=== PATIENT | male | born 1965 | race American Indian/Alaskan Native ===

== ENCOUNTER 2017-06-05 19:04 | Emergency (ER) | payer SELFPAY ==
--- NOTE | 2017-06-05 21:22 | XRay Report ---
FINAL REPORT PROCEDURE: XR ELBOW 2V RT TECHNIQUE: RIGHT elbow radiographs, including AP, lateral, and oblique views. CPT 70345 HISTORY: RIGHT ELBOW PAIN COMPARISON: No prior studies are available for comparison. FINDINGS: This study is limited due to suboptimal positioning. Fracture (s) and/or Dislocation(s): No obvious fracture line is identified. Alignment: Normal . Joint space(s): Positive anterior and posterior fat pad signs are noted. Soft tissues: Normal . Bone mineralization: Normal . Foreign bodies: None . IMPRESSION: This study is limited due to suboptimal positioning. Positive fat pad signs are suggestive of hemarthrosis. An occult supracondylar fracture is suspected.
--- NOTE | 2017-06-05 22:38 | Emergency Department Report ---
Upper Extremity - HPI Chief Complaint: Extremity Injury, Upper Stated Complaint: RT ARM PAIN Time Seen by Provider: 06/05/17 21:54 Upper Extremity: Right Elbow Occurred When: Today Severity: moderate Symptoms: Yes Pain with Movement, Yes Limited Range of Movement, Yes Swelling, No Deformity, No Numbness, No Bruising/Ecchymosis, No Laceration or Abrasion Other History: Patient comes into the ER today with complaints of right elbow pain that started earlier today. 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 Patient also states that he believes he hit his elbow today when working. Patient states that he was unable to keep using his arm but continued to work with left arm unloading bread. Patient denies any chest pain, shortness of breath. Patient states the pain is worse with movement. Patient has not taken anything for the pain or discomfort and he denies any known health problems. ED Review of Systems ROS: Stated complaint: RT ARM PAIN Other details as noted in HPI Constitutional: denies: chills, fever Eyes: denies: eye pain, eye discharge, vision change ENT: denies: ear pain, throat pain Respiratory: denies: cough, shortness of breath, wheezing Cardiovascular: denies: chest pain, palpitations Endocrine: no symptoms reported Gastrointestinal: denies: abdominal pain, nausea, diarrhea Genitourinary: denies: urgency, dysuria Musculoskeletal: joint swelling, arthralgia. denies: back pain Skin: denies: rash, lesions Neurological: denies: headache, weakness, paresthesias Psychiatric: denies: anxiety, depression Hematological/Lymphatic: denies: easy bleeding, easy bruising ED Past Medical Hx - Past Medical History Previous Medical History?: Yes Hx Hypertension: Yes - Surgical History Past Surgical History?: No - Social History Smoking Status: Former Smoker Substance Use Type: Alcohol - Medications Home Medications: Home Medications Medication Instructions Recorded Confirmed Last Taken Type Ciprofloxacin HCl [Cipro] 500 mg PO Q12H #14 tab 11/26/13 Unknown Rx HYDROcodone/APAP 5-325 [Brave 1 each PO Q6HR PRN #16 tablet 11/26/13 Unknown Rx 5-325 mg TAB] Naproxen [Naprosyn] 500 mg PO BID #30 tablet 12/04/13 Unknown Rx traMADol [Ultram 50 MG tab] 50 mg PO Q6HR PRN #20 tablet 12/04/13 Unknown Rx Cephalexin [Keflex] 500 mg PO TID #30 capsule 06/05/17 Unknown Rx predniSONE [Deltasone] 40 mg PO QDAY 5 Days 06/05/17 Unknown Rx traMADol [Ultram 50 MG tab] 50 mg PO Q4HR PRN #30 tablet 06/05/17 Unknown Rx Upper Extremity Exam - Exam General: Vital signs noted. No distress. Alert and acting appropriately. Bilateral nasal mucosa redness and congestion noted with right greater than left. Mild posterior nasal drainage noted in pharynx. Breath sounds are clear to auscultation throughout. Heart rate is normal sinus and heart sounds are normal. Patient does have left anterior chest wall erythematous and swelling noted consistent with insect bite reaction. No lymphadenopathy noted. Patient also has incidental umbilical hernia noted. Head and Torso: No HEENT Abnormality, No Neck Tenderness, No Chest/Lungs Abnormality, No Abdominal Tenderness, No Back Tenderness Shoulder Exam: Yes Normal Range of Motion in Shoulder, No Shoulder Tenderness, No Clavicle Tenderness, No Shoulder Deformity, No AC Joint Tenderness Arm Exam: No Arm/Humerus Tenderness, No Arm Deformity Elbow: Yes Elbow Tenderness (right elbow), No Normal Range of Motion in Elbow, No Elbow Deformity Forearm: Yes Pain with Pronation, Yes Pain with Supination, No Forearm Tenderness, No Forearm Deformity Wrist: Yes Normal ROM in Wrist, No Wrist Tenderness, No Wrist Deformity, No Snuffbox Tenderness, No Pain with Axial Thumb Compression Hand: Yes Normal ROM in Digit(s), No Hand Tenderness, No Hand Deformity, No Digit Tenderness, No Digit(s) Deformity, No Tendon Dysfunction CMS Exam: Yes Normal Distal Pulses, Yes Normal Capillary Refill, Yes Normal Distal Sensation, No Broken Skin ED Course Vital Signs 06/05/17 19:59 Temperature 100.0 F H Pulse Rate 98 H Respiratory 18 Rate Blood Pressure 172/100 O2 Sat by Pulse 98 Oximetry ED Medical Decision Making - Radiology Data Radiology results: report reviewed Positive anterior and posterior fat pad signs are noted with an occult supracondylar fracture suspected. However radiologist states that there is no obvious fracture line identified. Study is limited due to suboptimal positioning. - Medical Decision Making Patient is nontoxic and hemodynamically stable. Upon reviewing vitals patient noted to have a low-grade fever. Patient does not feel like he's been running any fevers but he does state he has been having some occasional frontal headaches over the past few days as well as has had an insect bite to the left lateral anterior chest wall. Patient is unsure as to what bit him but he does state that he has been becoming red and itching a lot. X-ray results reviewed and discussed with patient and family in room. I informed patient that no obvious fracture line is identified but 2 to have an anterior and posterior fat pad signs noted that we will treat patient for suspected fracture. Patient placed in right sugar tong arm splint and sling here in the ER. Patient is neurovascularly intact distally after splint placement. I will refer patient to orthopedics for further evaluation and anticipated casting. I have instructed patient to return to the ER if symptoms worsen. Hopefully patient's fever is related to potentially to insect bite versus underlying sinus infection. I will start patient on some antibiotics accordingly. Patient is in agreement with treatment plan and patient is stable for discharge. Critical care attestation.: If time is entered above; I have spent that time in minutes in the direct care of this critically ill patient, excluding procedure time. ED Disposition Clinical Impression: Right elbow pain, Elbow fracture, right, Insect bite, Sinusitis Disposition: [id number] TO HOME OR SELFCARE Is pt being admited?: No Does the pt Need Aspirin: No Condition: Good Instructions: Elbow Fracture in Adults (ED), Insect Bite or Sting (ED), Sinusitis (ED) Prescriptions: Cephalexin [Keflex] 500 mg PO TID #30 capsule predniSONE [Deltasone] 40 mg PO QDAY 5 Days traMADol [Ultram 50 MG tab] 50 mg PO Q4HR PRN #30 tablet PRN Reason: Pain Referrals: PRIMARY CARE, [Primary Care Provider] - 3-5 Days ANNAMARIA CUMMINGS MD [Staff Physician] - 2-3 Days Time of Disposition: 23:00
[2017-06-05] MEDS ORDERED: CATAPRES PO ONE (23:20)
[2017-06-05 23:49] VITALS: BP 178/98
== END 2017-06-05 23:49 | disposition home or self-care (01) ==
LOC: ED 19:04
DX: S42.401A Unspecified fracture of lower end of right humerus, initial encounter for closed fracture (principal); S20.362A Insect bite (nonvenomous) of left front wall of thorax, initial encounter; J32.8 Other chronic sinusitis; I10 Essential (primary) hypertension; F17.200 Nicotine dependence, unspecified, uncomplicated; X50.1XXA Overexertion from prolonged static or awkward postures, initial encounter; Y93.89 Activity, other specified; Y99.8 Other external cause status; Y92.89 Other specified places as the place of occurrence of the external cause

== ENCOUNTER 2018-03-26 11:51 | Emergency (ER) | payer SELFPAY ==
[2018-03-26 14:01] LABS: Basophils % (Auto) 0.6 % (0.0-1.8); Eosinophils % (Auto) 0.1 % (0.0-4.3); Hematocrit 49.5 % (35.5-45.6); Hemoglobin 16.1 gm/dl (11.8-15.2); Lymphocytes % (Auto) 23.1 % (13.4-35.0); Mean Corpuscular HGB Conc 33 % (32-34); Mean Corpuscular Hemoglobin 29 pg (28-32); Mean Corpuscular Volume 88 fl (84-94); Monocytes % (Auto) 5.4 % (0.0-7.3); Platelet Count 230 K/mm3 (140-440); Red Blood Count 5.62 M/mm3 (3.65-5.03); Red Cell Distribution Width 16.1 % (13.2-15.2)
[2018-03-26 14:02] LABS: Lymphocytes # (Auto) 1.6 K/mm3 (1.2-5.4); Monocytes # (Auto) 0.4 K/mm3 (0.0-0.8)
--- NOTE | 2018-03-26 14:12 | XRay Report ---
Single view chest: History: Hypertension. Findings: Normal cardiomediastinal silhouette. Trachea is midline. No consolidation, pneumothorax or pleural effusion. Impression: No acute cardiopulmonary findings.
[2018-03-26 14:13] LABS: INR 1.02 (0.87-1.13)
[2018-03-26 14:14] LABS: Partial Thromboplastin Time 25.3 Sec. (24.2-36.6)
[2018-03-26 14:24] LABS: Alanine Aminotransferase 30 units/L (7-56); BUN/Creatinine Ratio 11; Blood Urea Nitrogen 8 mg/dL (9-20); Calcium 8.8 mg/dL (8.4-10.2); Hemolysis Index 23
--- NOTE | 2018-03-26 14:37 | Cat Scan Report ---
CT scan of head without IV contrast: History oral or mental status. Findings: Ventricles are normal in size and midline in location. No evidence of acute ischemia, hemorrhage or mass. No extra axial fluid collection. Normal brainstem and cerebellum. Normal sinuses and mastoid air cells. Impression: No acute intracranial abnormality.
[2018-03-26] MEDS ORDERED: NACL 0.9% 1000 ML 2,000 ML IV ONE (15:24)
[2018-03-26] MEDS ORDERED: CATAPRES PO ONE (15:25)
[2018-03-26] MEDS ORDERED: ZOFRAN IV ONE (18:41)
--- NOTE | 2018-03-26 18:57 | Emergency Department Report ---
<GLORIA CASTREJON P - Last Filed: 03/26/18 20:27> ED Altered Mental Status HPI - General Chief Complaint: Syncope Stated Complaint: SYNCOPE/LOW BLOOD PRESSURE Time Seen by Provider: 03/26/18 12:03 Source: patient Mode of arrival: Ambulatory Limitations: No Limitations - History of Present Illness Initial Comments: Patient found to be altered by family at home. EMS reported agonal breathing on arrival. Patient improved in condition to the ER. Reported no resp distress on arrival at the ER. Patient with history of alcohol abuse. Sister reports patient suspected binge drinking contributing the symptoms today MD Complaint: altered mental status -: hour(s) Severity: moderate Consistency of Symptoms: waxing and waning (symptoms improving en route to the ER) Context: alcohol abuse Associated Symptoms: diaphoresis, nausea/vomiting, shortness of breath, syncope. denies: chest pain, cough, fever/chills, headaches, loss of appetite, malaise, rash, seizure, weakness, foul smelling urine, difficulty walking, diarrhea, incontinence - Related Data Previous Rx's Medication Instructions Recorded Last Taken Type Ciprofloxacin HCl [Cipro] 500 mg PO Q12H #14 tab 11/26/13 Unknown Rx HYDROcodone/APAP 5-325 [[place] 1 each PO Q6HR PRN #16 tablet 11/26/13 Unknown Rx 5-325 mg TAB] Naproxen [Naprosyn] 500 mg PO BID #30 tablet 12/04/13 Unknown Rx traMADol [Ultram 50 MG tab] 50 mg PO Q6HR PRN #20 tablet 12/04/13 Unknown Rx Cephalexin [Keflex] 500 mg PO TID #30 capsule 06/05/17 Unknown Rx predniSONE [Deltasone] 40 mg PO QDAY 5 Days tab 06/05/17 Unknown Rx traMADol [Ultram 50 MG tab] 50 mg PO Q4HR PRN #30 tablet 06/05/17 Unknown Rx Azithromycin [Zithromax Z-BRENT] 1 dose PO DAILY 5 Days tab 03/27/18 Unknown Rx Lisinopril [Zestril TAB] 20 mg PO QDAY #30 tablet 03/27/18 Unknown Rx Allergies Allergy/AdvReac Type Severity Reaction Status Date / Time No Known Allergies Allergy Verified 11/25/13 21:18 ED Review of Systems ROS: Stated complaint: SYNCOPE/LOW BLOOD PRESSURE Other details as noted in HPI Other: GENERAL: No weight change, fatigue, weakness, fever, chills, or night sweats SKIN: No changes in skin or hair, no itching, no rashes, no jaundice HEAD: No trauma, headache, or visual changes EYES: No blurriness, tearing, itching, acute visual loss, conjunctival discoloration, or scleral icterus EARS: No hearing loss, tinnitus, vertigo, or earache NOSE: No rhinorrhea, stuffiness, sneezing, itching, or epistaxis MOUTH: No bleeding gums, hoarseness, sore throat, or swelling CARDIAC: Reported syncope. No new murmur, chest pain, palpitations, dyspnea on exertion, orthopnea, PND, or edema RESPIRATORY: No shortness of breath, wheeze, cough, sputum production, hemoptysis, pneumonia, asthma, bronchitis, or emphysema GI: No change in appetite, nausea, vomiting, dysphagia, change in bowel frequency, diarrhea, constipation, bleeding, hematemesis, melena, hematochezia, or abdominal pain URINARY: No frequency, urgency, polyuria, dysuria, hematuria, or incontinence MUSCULOSKELETAL: No muscle weakness, joint stiffness, decrease in range of motion, redness, swelling NEUROLOGIC: No loss of sensation, numbness, tingling, tremors, weakness, paralysis, seizures PSYCHIATRIC: No change in mood, no anxiety, no depression ED Past Medical Hx - Past Medical History Hx Hypertension: Yes - Surgical History Past Surgical History?: No - Social History Smoking Status: Never Smoker Substance Use Type: Alcohol - Medications Home Medications: Home Medications Medication Instructions Recorded Confirmed Last Taken Type Ciprofloxacin HCl [Cipro] 500 mg PO Q12H #14 tab 11/26/13 Unknown Rx HYDROcodone/APAP 5-325 [[place] 1 each PO Q6HR PRN #16 tablet 11/26/13 Unknown Rx 5-325 mg TAB] Naproxen [Naprosyn] 500 mg PO BID #30 tablet 12/04/13 Unknown Rx traMADol [Ultram 50 MG tab] 50 mg PO Q6HR PRN #20 tablet 12/04/13 Unknown Rx Cephalexin [Keflex] 500 mg PO TID #30 capsule 06/05/17 Unknown Rx predniSONE [Deltasone] 40 mg PO QDAY 5 Days tab 06/05/17 Unknown Rx traMADol [Ultram 50 MG tab] 50 mg PO Q4HR PRN #30 tablet 06/05/17 Unknown Rx Azithromycin [Zithromax Z-BRENT] 1 dose PO DAILY 5 Days tab 03/27/18 Unknown Rx Lisinopril [Zestril TAB] 20 mg PO QDAY #30 tablet 03/27/18 Unknown Rx ED Physical Exam - General Limitations: No Limitations - Other Other exam information: GENERAL: Patient in no acute distress HEAD: Normocephalic, atraumatic EYES: PERRLA, EOM intact, no scleral icterus, visual mack and acuity wnl HEART: Regular rate and rhythm, no murmur, S1-S2 are auscultated, pulses are symmetric LUNGS: bilateral breath sounds. No wheezing, rales, rhonchi ABDOMEN: Normal bowel sounds, no tenderness, no rebound, no guarding, no masses , no CVA tenderness MUSCULOSKELETAL: Normal joint range of motion, no redness, no swelling, no tenderness NEUROLOGIC: Alert and Oriented, Cranial nerves intact, normal sensation, normal strength, normal gait, no cerebellar deficit PSYCHIATRIC: No homicidal or suicidal ideation, no anxiety, no depression, no hallucinations SKIN: Skin is warm and dry, no wounds, no rashes - Assessment Assessment Interval: Baseline - Level of Consciousness 1a. Level of Consciousness: alert - LOC Questions 1b. LOC Questions: answers correctly - LOC Command 1c. LOC Commands: performs tasks correctly - Best Gaze 2. Best Gaze: normal - Visual 3. Visual: no visual loss - Facial Palsy 4. Facial Palsy: normal symmetrical movement - Motor Arm 5b. Motor Arm Right: no drift 5a. Motor Arm Left: no drift - Motor Leg 6a. Motor Leg Left: no drift 6b. Motor Leg Right: no drift - Limb Ataxia 7. Limb Ataxia: absent - Sensory 8. Sensory: normal - Best Language 9. Best Language: no aphasia - Dysarthria 10. Dysarthria: normal - Extinction and Inattention 11. Extinction/Inattention: no abnormality - Scoring Total Score: 0 Stroke Severity: No Stroke Symptoms ED Course Vital Signs 03/26/18 03/26/18 03/26/18 12:00 12:51 16:24 Temperature 98 F 98.0 F Pulse Rate 112 H 97 H Respiratory 16 18 Rate Blood Pressure 164/102 Blood Pressure 163/95 [Left] O2 Sat by Pulse 96 99 99 Oximetry 03/26/18 03/26/18 03/26/18 16:30 16:46 17:00 Temperature Pulse Rate Respiratory Rate Blood Pressure 144/78 161/93 145/89 Blood Pressure [Left] O2 Sat by Pulse 95 95 97 Oximetry 03/26/18 03/26/18 03/26/18 17:16 17:30 17:46 Temperature Pulse Rate Respiratory Rate Blood Pressure 147/85 110/69 153/77 Blood Pressure [Left] O2 Sat by Pulse 97 96 98 Oximetry 03/26/18 03/26/18 03/26/18 18:31 18:45 19:00 Temperature Pulse Rate 108 H 121 H Respiratory 27 H 31 H Rate Blood Pressure 165/95 158/108 158/108 Blood Pressure [Left] O2 Sat by Pulse 95 98 98 Oximetry 03/26/18 03/26/18 03/26/18 19:15 19:42 19:44 Temperature Pulse Rate 92 H Respiratory Rate Blood Pressure 153/93 143/90 143/90 Blood Pressure [Left] O2 Sat by Pulse 97 95 96 Oximetry 03/26/18 03/26/18 03/26/18 19:45 19:46 19:48 Temperature Pulse Rate Respiratory Rate Blood Pressure 164/106 164/106 164/106 Blood Pressure [Left] O2 Sat by Pulse 97 98 96 Oximetry 03/26/18 03/26/18 03/26/18 19:50 19:52 19:54 Temperature Pulse Rate Respiratory Rate Blood Pressure 164/106 164/106 164/106 Blood Pressure [Left] O2 Sat by Pulse 96 97 96 Oximetry 03/26/18 03/26/18 03/26/18 19:56 19:58 20:00 Temperature Pulse Rate 133 H Respiratory 32 H Rate Blood Pressure 164/106 164/106 164/106 Blood Pressure [Left] O2 Sat by Pulse 97 96 96 Oximetry 03/26/18 03/26/18 03/26/18 20:02 20:04 20:06 Temperature Pulse Rate Respiratory Rate Blood Pressure 176/107 176/107 176/107 Blood Pressure [Left] O2 Sat by Pulse 96 97 96 Oximetry 03/26/18 03/26/18 03/26/18 20:08 20:10 20:12 Temperature Pulse Rate Respiratory Rate Blood Pressure 176/107 176/107 176/107 Blood Pressure [Left] O2 Sat by Pulse 97 96 96 Oximetry 03/26/18 03/26/18 03/26/18 20:14 20:15 20:16 Temperature Pulse Rate Respiratory Rate Blood Pressure 176/107 158/102 158/102 Blood Pressure [Left] O2 Sat by Pulse 96 98 97 Oximetry 03/26/18 03/26/18 03/26/18 20:18 20:20 20:22 Temperature Pulse Rate Respiratory Rate Blood Pressure 158/102 158/102 158/102 Blood Pressure [Left] O2 Sat by Pulse 99 99 98 Oximetry 03/26/18 03/26/18 03/26/18 20:23 20:25 20:27 Temperature Pulse Rate 107 H 80 89 Respiratory 18 22 24 Rate Blood Pressure 153/93 153/93 153/93 Blood Pressure [Left] O2 Sat by Pulse 97 96 96 Oximetry 03/26/18 03/26/18 03/26/18 20:29 20:30 20:31 Temperature Pulse Rate 83 86 93 H Respiratory 25 H 25 H 25 H Rate Blood Pressure 153/93 145/94 145/94 Blood Pressure [Left] O2 Sat by Pulse 96 96 97 Oximetry 03/26/18 03/26/18 03/26/18 20:33 20:35 20:37 Temperature Pulse Rate 93 H 90 89 Respiratory 24 24 22 Rate Blood Pressure 158/102 158/102 158/102 Blood Pressure [Left] O2 Sat by Pulse 98 97 97 Oximetry 03/26/18 03/26/18 03/26/18 20:39 20:41 20:43 Temperature Pulse Rate 89 91 H 95 H Respiratory 24 24 25 H Rate Blood Pressure 158/102 158/102 158/102 Blood Pressure [Left] O2 Sat by Pulse 97 98 97 Oximetry 03/26/18 03/26/18 03/26/18 20:45 20:47 20:49 Temperature Pulse Rate 94 H 96 H 98 H Respiratory 23 24 27 H Rate Blood Pressure 165/89 165/89 165/89 Blood Pressure [Left] O2 Sat by Pulse 96 97 97 Oximetry 03/26/18 03/26/18 03/26/18 20:51 20:53 20:55 Temperature Pulse Rate 94 H 94 H 94 H Respiratory 25 H 24 24 Rate Blood Pressure 165/89 165/89 165/89 Blood Pressure [Left] O2 Sat by Pulse 96 96 96 Oximetry 03/26/18 03/26/18 03/26/18 20:57 20:59 21:00 Temperature Pulse Rate 96 H 105 H 96 H Respiratory 26 H 24 26 H Rate Blood Pressure 165/89 165/89 165/92 Blood Pressure [Left] O2 Sat by Pulse 96 95 97 Oximetry 03/26/18 03/26/18 03/26/18 21:01 21:03 21:05 Temperature Pulse Rate 95 H 96 H 92 H Respiratory 26 H 24 23 Rate Blood Pressure 165/92 165/92 165/92 Blood Pressure [Left] O2 Sat by Pulse 95 95 94 Oximetry 03/26/18 03/26/18 03/26/18 21:07 21:09 23:41 Temperature Pulse Rate 99 H 101 H Respiratory 26 H 24 Rate Blood Pressure 165/92 165/92 165/92 Blood Pressure [Left] O2 Sat by Pulse 95 96 99 Oximetry 03/26/18 03/26/18 03/26/18 23:43 23:45 23:47 Temperature Pulse Rate 101 H 99 H 104 H Respiratory 32 H 27 H 29 H Rate Blood Pressure 172/93 172/93 172/93 Blood Pressure [Left] O2 Sat by Pulse 97 95 97 Oximetry 03/26/18 03/26/18 03/26/18 23:49 23:51 23:53 Temperature Pulse Rate 146 H 106 H 103 H Respiratory 26 H 21 19 Rate Blood Pressure 172/93 172/93 172/93 Blood Pressure [Left] O2 Sat by Pulse 94 96 96 Oximetry 03/26/18 03/26/18 03/26/18 23:55 23:57 23:59 Temperature Pulse Rate 105 H 106 H 104 H Respiratory 29 H 27 H 28 H Rate Blood Pressure 172/93 172/93 172/93 Blood Pressure [Left] O2 Sat by Pulse 96 96 95 Oximetry 03/27/18 03/27/18 03/27/18 00:00 00:01 00:03 Temperature Pulse Rate 103 H 105 H 105 H Respiratory 26 H 28 H 31 H Rate Blood Pressure 158/99 158/99 158/99 Blood Pressure [Left] O2 Sat by Pulse 95 95 97 Oximetry 03/27/18 03/27/18 03/27/18 00:05 00:07 00:09 Temperature Pulse Rate 102 H 98 H 111 H Respiratory 27 H 25 H 25 H Rate Blood Pressure 158/99 158/99 158/99 Blood Pressure [Left] O2 Sat by Pulse 97 96 95 Oximetry 03/27/18 03/27/1803/27/18 00:11 00:13 00:21 Temperature Pulse Rate 107 H 107 H 102 H Respiratory 20 24 20 Rate Blood Pressure 158/99 158/99 Blood Pressure 158/99 [Left] O2 Sat by Pulse 98 97 100 Oximetry 03/27/18 03/27/18 03/27/18 00:55 00:57 00:59 Temperature Pulse Rate 100 H 100 H 99 H Respiratory 22 20 21 Rate Blood Pressure 170/98 170/98 170/98 Blood Pressure [Left] O2 Sat by Pulse 95 94 94 Oximetry 03/27/18 03/27/18 03/27/18 01:00 01:01 01:03 Temperature Pulse Rate 100 H 99 H 101 H Respiratory 27 H 23 27 H Rate Blood Pressure 163/92 163/92 163/92 Blood Pressure [Left] O2 Sat by Pulse 96 96 96 Oximetry 03/27/18 03/27/18 03/27/18 01:05 01:07 01:09 Temperature Pulse Rate 101 H 105 H 101 H Respiratory 27 H 29 H 26 H Rate Blood Pressure 163/92 163/92 163/92 Blood Pressure [Left] O2 Sat by Pulse 95 97 95 Oximetry 03/27/18 03/27/18 03/27/18 01:11 01:13 01:15 Temperature Pulse Rate 102 H 97 H 97 H Respiratory 25 H 26 H 26 H Rate Blood Pressure 163/92 163/92 163/92 Blood Pressure [Left] O2 Sat by Pulse 94 95 95 Oximetry 03/27/18 03/27/18 03/27/18 01:17 01:19 01:20 Temperature Pulse Rate 96 H 100 H 96 H Respiratory 26 H 27 H 27 H Rate Blood Pressure 163/92 163/92 168/89 Blood Pressure [Left] O2 Sat by Pulse 96 96 96 Oximetry 03/27/18 03/27/18 03/27/18 01:21 01:23 01:25 Temperature Pulse Rate 96 H 97 H 95 H Respiratory 26 H 26 H 26 H Rate Blood Pressure 168/89 168/89 168/89 Blood Pressure [Left] O2 Sat by Pulse 95 95 94 Oximetry 03/27/18 03/27/18 03/27/18 01:27 01:29 01:31 Temperature Pulse Rate 96 H 94 H 93 H Respiratory 25 H 26 H 22 Rate Blood Pressure 168/89 168/89 168/89 Blood Pressure [Left] O2 Sat by Pulse 98 96 97 Oximetry 03/27/18 03/27/18 03/27/18 01:33 01:35 01:37 Temperature Pulse Rate 91 H 96 H 101 H Respiratory 25 H 26 H 24 Rate Blood Pressure 168/89 168/89 168/89 Blood Pressure [Left] O2 Sat by Pulse 95 95 95 Oximetry 03/27/18 03/27/18 03/27/18 01:39 01:40 01:41 Temperature Pulse Rate 99 H 95 H 95 H Respiratory 26 H 25 H 26 H Rate Blood Pressure 168/89 168/90 168/90 Blood Pressure [Left] O2 Sat by Pulse 95 95 95 Oximetry 03/27/18 03/27/18 03/27/18 01:43 01:45 01:47 Temperature Pulse Rate 93 H 108 H 98 H Respiratory 25 H 30 H 27 H Rate Blood Pressure 168/90 168/90 168/90 Blood Pressure [Left] O2 Sat by Pulse 94 97 96 Oximetry 03/27/18 03/27/18 03/27/18 01:49 01:51 01:53 Temperature Pulse Rate 98 H 96 H 99 H Respiratory 27 H 22 25 H Rate Blood Pressure 168/90 168/90 168/90 Blood Pressure [Left] O2 Sat by Pulse 95 95 94 Oximetry 03/27/18 03/27/18 03/27/18 01:55 01:57 01:59 Temperature Pulse Rate 95 H 96 H 98 H Respiratory 22 26 H 26 H Rate Blood Pressure 168/90 168/90 168/90 Blood Pressure [Left] O2 Sat by Pulse 95 97 97 Oximetry 03/27/18 03/27/18 03/27/18 02:00 02:01 02:03 Temperature Pulse Rate 97 H 99 H 99 H Respiratory 27 H 26 H 24 Rate Blood Pressure 167/91 167/91 167/91 Blood Pressure [Left] O2 Sat by Pulse 96 96 96 Oximetry 03/27/18 03/27/18 03/27/18 02:05 02:07 02:09 Temperature Pulse Rate 97 H 101 H 103 H Respiratory 22 26 H 27 H Rate Blood Pressure 167/91 167/91 167/91 Blood Pressure [Left] O2 Sat by Pulse 96 96 96 Oximetry 03/27/18 03/27/18 03/27/18 02:11 02:13 02:15 Temperature Pulse Rate 99 H 99 H 100 H Respiratory 26 H 26 H 25 H Rate Blood Pressure 167/91 167/91 167/91 Blood Pressure [Left] O2 Sat by Pulse 96 96 97 Oximetry 03/27/18 03/27/18 03/27/18 02:17 02:19 02:21 Temperature Pulse Rate 105 H 129 H 132 H Respiratory 27 H 35 H 26 H Rate Blood Pressure 167/91 167/91 193/115 Blood Pressure [Left] O2 Sat by Pulse 96 92 96 Oximetry 03/27/18 03/27/18 03/27/18 02:23 02:25 02:43 Temperature Pulse Rate 113 H 110 H 101 H Respiratory 21 25 H 24 Rate Blood Pressure 193/115 193/115 170/94 Blood Pressure [Left] O2 Sat by Pulse 97 96 96 Oximetry 03/27/18 03/27/18 03/27/18 02:45 02:47 02:49 Temperature Pulse Rate 101 H 99 H 101 H Respiratory 27 H 26 H 20 Rate Blood Pressure 175/93 175/93 175/93 Blood Pressure 170/94 [Left] O2 Sat by Pulse 97 96 97 Oximetry 03/27/18 03/27/18 03/27/18 02:51 02:53 02:55 Temperature Pulse Rate 101 H 99 H 102 H Respiratory 20 27 H 28 H Rate Blood Pressure 175/93 175/93 175/93 Blood Pressure [Left] O2 Sat by Pulse 97 96 96 Oximetry 03/27/18 03/27/18 03/27/18 02:57 02:59 03:00 Temperature Pulse Rate 101 H 102 H 101 H Respiratory 28 H 28 H 26 H Rate Blood Pressure 175/93 175/93 173/99 Blood Pressure [Left] O2 Sat by Pulse 96 96 96 Oximetry 03/27/18 03/27/18 03/27/18 03:01 03:03 03:05 Temperature Pulse Rate 100 H 101 H 102 H Respiratory 16 26 H 27 H Rate Blood Pressure 173/99 173/99 173/99 Blood Pressure [Left] O2 Sat by Pulse 97 94 95 Oximetry 03/27/18 03/27/18 03/27/18 03:07 03:09 03:11 Temperature Pulse Rate 103 H 104 H 103 H Respiratory 28 H 26 H 26 H Rate Blood Pressure 173/99 173/99 173/99 Blood Pressure [Left] O2 Sat by Pulse 95 97 96 Oximetry 03/27/18 03/27/18 03/27/18 03:13 03:15 03:17 Temperature Pulse Rate 101 H 102 H 103 H Respiratory 26 H 25 H 26 H Rate Blood Pressure 173/99 172/95 172/95 Blood Pressure [Left] O2 Sat by Pulse 96 96 96 Oximetry 03/27/18 03/27/18 03/27/18 03:19 03:21 03:23 Temperature Pulse Rate 100 H 101 H 103 H Respiratory 27 H 24 28 H Rate Blood Pressure 172/95 172/95 172/95 Blood Pressure [Left] O2 Sat by Pulse 96 97 96 Oximetry 03/27/18 03/27/18 03/27/18 03:25 03:27 03:29 Temperature Pulse Rate 102 H 100 H 104 H Respiratory 28 H 26 H 26 H Rate Blood Pressure 172/95 172/95 172/95 Blood Pressure [Left] O2 Sat by Pulse 96 96 95 Oximetry 03/27/18 03/27/18 03/27/18 03:30 03:31 03:33 Temperature Pulse Rate 101 H 103 H 108 H Respiratory 26 H 26 H 27 H Rate Blood Pressure 170/95 170/95 170/95 Blood Pressure [Left] O2 Sat by Pulse 96 95 95 Oximetry 03/27/18 03/27/18 03/27/18 03:35 03:37 03:39 Temperature Pulse Rate 105 H 103 H 128 H Respiratory 26 H 26 H 36 H Rate Blood Pressure 170/95 170/95 170/95 Blood Pressure [Left] O2 Sat by Pulse 96 96 96 Oximetry 03/27/18 03/27/18 03/27/18 03:41 03:43 03:45 Temperature Pulse Rate 104 H 107 H 112 H Respiratory 23 17 31 H Rate Blood Pressure 170/95 170/95 177/104 Blood Pressure [Left] O2 Sat by Pulse 97 96 97 Oximetry 03/27/18 03/27/18 03/27/18 03:47 03:49 03:51 Temperature Pulse Rate 102 H 102 H 101 H Respiratory 28 H 26 H 29 H Rate Blood Pressure 177/104 177/104 177/104 Blood Pressure [Left] O2 Sat by Pulse 96 96 96 Oximetry 03/27/18 03/27/18 03/27/18 03:53 03:55 03:57 Temperature Pulse Rate 100 H 103 H 99 H Respiratory 28 H 27 H 20 Rate Blood Pressure 177/104 177/104 177/104 Blood Pressure [Left] O2 Sat by Pulse 94 95 95 Oximetry 03/27/18 03/27/18 03/27/18 03:59 04:00 04:01 Temperature Pulse Rate 102 H 101 H 103 H Respiratory 27 H 26 H 26 H Rate Blood Pressure 177/104 168/97 168/97 Blood Pressure [Left] O2 Sat by Pulse 95 95 95 Oximetry 03/27/18 03/27/18 03/27/18 04:03 04:05 04:07 Temperature Pulse Rate 102 H 107 H 101 H Respiratory 24 29 H 27 H Rate Blood Pressure 168/97 168/97 168/97 Blood Pressure [Left] O2 Sat by Pulse 95 95 96 Oximetry 03/27/18 03/27/18 03/27/18 04:09 04:11 04:13 Temperature Pulse Rate 102 H 102 H 101 H Respiratory 26 H 27 H 25 H Rate Blood Pressure 168/97 168/97 168/97 Blood Pressure [Left] O2 Sat by Pulse 94 97 97 Oximetry 03/27/18 03/27/18 03/27/18 04:15 04:22 04:46 Temperature Pulse Rate 99 H 104 H Respiratory 26 H 20 20 Rate Blood Pressure 168/96 Blood Pressure 161/89 [Left] O2 Sat by Pulse 96 100 Oximetry 03/27/18 05:33 Temperature Pulse Rate 96 H Respiratory 20 Rate Blood Pressure Blood Pressure 160/92 [Left] O2 Sat by Pulse 98 Oximetry - Lab Data Result diagrams: 03/26/18 13:45 03/26/18 13:45 Lab Results 03/26/18 03/26/18 03/26/18 Range/Units 13:36 13:45 13:45 WBC 7.1 (4.5-11.0) K/mm3 RBC 5.62 H (3.65-5.03) M/mm3 Hgb 16.1 H (11.8-15.2) gm/dl Hct 49.5 H (35.5-45.6) % MCV 88 (84-94) fl MCH 29 (28-32) pg MCHC 33 (32-34) % RDW 16.1 H (13.2-15.2) % Plt Count 230 (140-440) K/mm3 Lymph % (Auto) 23.1 (13.4-35.0) % [place] % (Auto) 5.4 (0.0-7.3) % Eos % (Auto) 0.1 (0.0-4.3) % Baso % (Auto) 0.6 (0.0-1.8) % Lymph # 1.6 (1.2-5.4) K/mm3 [place] # 0.4 (0.0-0.8) K/mm3 Eos # 0.0 (0.0-0.4) K/mm3 Baso # 0.0 (0.0-0.1) K/mm3 Seg Neutrophils % 70.8 H (40.0-70.0) % Seg Neutrophils # 5.0 (1.8-7.7) K/mm3 PT 13.9 (12.2-14.9) Sec. INR 1.02 (0.87-1.13) APTT 25.3 (24.2-36.6) Sec. Sodium (137-145) mmol/L Potassium (3.6-5.0) mmol/L Chloride (98-107) mmol/L Carbon Dioxide (22-30) mmol/L Anion Gap mmol/L BUN (9-20) mg/dL Creatinine (0.8-1.5) mg/dL Estimated GFR ml/min BUN/Creatinine Ratio % Glucose (75-100) mg/dL POC Glucose 115 H (70-105) Calcium (8.4-10.2) mg/dL Total Bilirubin (0.1-1.2) mg/dL AST (5-40) units/L ALT (7-56) units/L Alkaline Phosphatase (35-129) units/L Ammonia (25-60) umol/L Total Creatine Kinase (55-170) units/L Troponin T (0.00-0.029) ng/mL NT-Pro-B Natriuret Pep (0-900) pg/mL Total Protein (6.3-8.2) g/dL Albumin (3.9-5) g/dL Albumin/Globulin Ratio % TSH (0.270-4.200) mlU/mL Free T4 (0.76-1.46) ng/dL Urine Color (Yellow) Urine Turbidity (Clear) Urine pH (5.0-7.0) Ur Specific [place] (1.003-1.030) Urine Protein (Negative) mg/dL Urine Glucose (UA) (Negative) mg/dL Urine Ketones (Negative) mg/dL Urine Blood (Negative) Urine Nitrite (Negative) Urine Bilirubin (Negative) Urine Urobilinogen (<2.0) mg/dL Ur Leukocyte Esterase (Negative) Urine WBC (Auto) (0.0-6.0) /HPF Urine RBC (Auto) (0.0-6.0) /HPF U Epithel Cells (Auto) (0-13.0) /HPF Urine Bacteria (Auto) (Negative) /HPF Urine Mucus /HPF Urine Opiates Screen Urine Methadone Screen Ur Barbiturates Screen Ur Phencyclidine Scrn Ur Amphetamines Screen U Benzodiazepines Scrn Urine Cocaine Screen U Marijuana (THC) Screen Drugs of Abuse Note Plasma/Serum Alcohol (0-0.07) % 03/26/18 03/26/18 03/26/18 Range/Units 13:45 13:45 13:45 WBC (4.5-11.0) K/mm3 RBC (3.65-5.03) M/mm3 Hgb (11.8-15.2) gm/dl Hct (35.5-45.6) % MCV (84-94) fl MCH (28-32) pg MCHC (32-34) % RDW (13.2-15.2) % Plt Count (140-440) K/mm3 Lymph % (Auto) (13.4-35.0) % [place] % (Auto) (0.0-7.3) % Eos % (Auto) (0.0-4.3) % Baso % (Auto) (0.0-1.8) % Lymph # (1.2-5.4) K/mm3 [place] # (0.0-0.8) K/mm3 Eos # (0.0-0.4) K/mm3 Baso # (0.0-0.1) K/mm3 Seg Neutrophils % (40.0-70.0) % Seg Neutrophils # (1.8-7.7) K/mm3 PT (12.2-14.9) Sec. INR (0.87-1.13) APTT (24.2-36.6) Sec. Sodium 143 (137-145) mmol/L Potassium 3.9 (3.6-5.0) mmol/L Chloride 100.7 (98-107) mmol/L Carbon Dioxide 20 L (22-30) mmol/L Anion Gap 26 mmol/L BUN 8 L (9-20) mg/dL Creatinine 0.7 L (0.8-1.5) mg/dL Estimated GFR > 60 ml/min BUN/Creatinine Ratio 11 % Glucose 110 H (75-100) mg/dL POC Glucose (70-105) Calcium 8.8 (8.4-10.2) mg/dL Total Bilirubin 0.60 (0.1-1.2) mg/dL AST 58 H (5-40) units/L ALT 30 (7-56) units/L Alkaline Phosphatase 82 (35-129) units/L Ammonia 39.0 (25-60) umol/L Total Creatine Kinase 869 H (55-170) units/L Troponin T < 0.010 (0.00-0.029) ng/mL NT-Pro-B Natriuret Pep 10.42 (0-900) pg/mL Total Protein 8.3 H (6.3-8.2) g/dL Albumin 4.0 (3.9-5) g/dL Albumin/Globulin Ratio 0.9 % TSH (0.270-4.200) mlU/mL Free T4 (0.76-1.46) ng/dL Urine Color (Yellow) Urine Turbidity (Clear) Urine pH (5.0-7.0) Ur Specific [place] (1.003-1.030) Urine Protein (Negative) mg/dL Urine Glucose (UA) (Negative) mg/dL Urine Ketones (Negative) mg/dL Urine Blood (Negative) Urine Nitrite (Negative) Urine Bilirubin (Negative) Urine Urobilinogen (<2.0) mg/dL Ur Leukocyte Esterase (Negative) Urine WBC (Auto) (0.0-6.0) /HPF Urine RBC (Auto) (0.0-6.0) /HPF U Epithel Cells (Auto) (0-13.0) /HPF Urine Bacteria (Auto) (Negative) /HPF Urine Mucus /HPF Urine Opiates Screen Urine Methadone Screen Ur Barbiturates Screen Ur Phencyclidine Scrn Ur Amphetamines Screen U Benzodiazepines Scrn Urine Cocaine Screen U Marijuana (THC) Screen Drugs of Abuse Note Plasma/Serum Alcohol 0.24 H (0-0.07) % 03/26/18 03/26/18 03/27/18 Range/Units Unknown Unknown 03:05 WBC (4.5-11.0) K/mm3 RBC (3.65-5.03) M/mm3 Hgb (11.8-15.2) gm/dl Hct (35.5-45.6) % MCV (84-94) fl MCH (28-32) pg MCHC (32-34) % RDW (13.2-15.2) % Plt Count (140-440) K/mm3 Lymph % (Auto) (13.4-35.0) % [place] % (Auto) (0.0-7.3) % Eos % (Auto) (0.0-4.3) % Baso % (Auto) (0.0-1.8) % Lymph # (1.2-5.4) K/mm3 [place] # (0.0-0.8) K/mm3 Eos # (0.0-0.4) K/mm3 Baso # (0.0-0.1) K/mm3 Seg Neutrophils % (40.0-70.0) % Seg Neutrophils # (1.8-7.7) K/mm3 PT (12.2-14.9) Sec. INR (0.87-1.13) APTT (24.2-36.6) Sec. Sodium (137-145) mmol/L Potassium (3.6-5.0) mmol/L Chloride (98-107) mmol/L Carbon Dioxide (22-30) mmol/L Anion Gap mmol/L BUN (9-20) mg/dL Creatinine (0.8-1.5) mg/dL Estimated GFR ml/min BUN/Creatinine Ratio % Glucose (75-100) mg/dL POC Glucose (70-105) Calcium (8.4-10.2) mg/dL Total Bilirubin (0.1-1.2) mg/dL AST (5-40) units/L ALT (7-56) units/L Alkaline Phosphatase (35-129) units/L Ammonia (25-60) umol/L Total Creatine Kinase (55-170) units/L Troponin T (0.00-0.029) ng/mL NT-Pro-B Natriuret Pep (0-900) pg/mL Total Protein (6.3-8.2) g/dL Albumin (3.9-5) g/dL Albumin/Globulin Ratio % TSH 2.060 (0.270-4.200) mlU/mL Free T4 0.89 (0.76-1.46) ng/dL Urine Color Yellow (Yellow) Urine Turbidity Clear (Clear) Urine pH 5.0 (5.0-7.0) Ur Specific [place] 1.014 (1.003-1.030) Urine Protein 100 mg/dl (Negative) mg/dL Urine Glucose (UA) Neg (Negative) mg/dL Urine Ketones 20 (Negative) mg/dL Urine Blood Mod (Negative) Urine Nitrite Neg (Negative) Urine Bilirubin Neg (Negative) Urine Urobilinogen < 2.0 (<2.0) mg/dL Ur Leukocyte Esterase Neg (Negative) Urine WBC (Auto) 1.0 (0.0-6.0) /HPF Urine RBC (Auto) 2.0 (0.0-6.0) /HPF U Epithel Cells (Auto) < 1.0 (0-13.0) /HPF Urine Bacteria (Auto) 1+ (Negative) /HPF Urine Mucus Few /HPF Urine Opiates Screen Presumptive negative Urine Methadone Screen Presumptive negative Ur Barbiturates Screen Presumptive negative Ur Phencyclidine Scrn Presumptive negative Ur Amphetamines Screen Presumptive negative U Benzodiazepines Scrn Presumptive negative Urine Cocaine Screen Presumptive negative U Marijuana (THC) Screen Presumptive negative Drugs of Abuse Note Disclamer Plasma/Serum Alcohol (0-0.07) % Laboratory Results - last 24 hr 03/26/18 03/26/18 03/26/18 13:36 13:45 13:45 WBC 7.1 RBC 5.62 H Hgb 16.1 H Hct 49.5 H MCV 88 MCH 29 MCHC 33 RDW 16.1 H Plt Count 230 Lymph % (Auto) 23.1 [place] % (Auto) 5.4 Eos % (Auto) 0.1 Baso % (Auto) 0.6 Lymph # 1.6 [place] # 0.4 Eos # 0.0 Baso # 0.0 Seg Neutrophils % 70.8 H Seg Neutrophils # 5.0 PT 13.9 INR 1.02 APTT 25.3 Sodium Potassium Chloride Carbon Dioxide Anion Gap BUN Creatinine Estimated GFR BUN/Creatinine Ratio Glucose POC Glucose 115 H Calcium Total Bilirubin AST ALT Alkaline Phosphatase Ammonia Total Creatine Kinase Troponin T NT-Pro-B Natriuret Pep Total Protein Albumin Albumin/Globulin Ratio Plasma/Serum Alcohol 03/26/18 03/26/18 03/26/18 13:45 13:45 13:45 WBC RBC Hgb Hct MCV MCH MCHC RDW Plt Count Lymph % (Auto) [place] % (Auto) Eos % (Auto) Baso % (Auto) Lymph # [place] # Eos # Baso # Seg Neutrophils % Seg Neutrophils # PT INR APTT Sodium 143 Potassium 3.9 Chloride 100.7 Carbon Dioxide 20 L Anion Gap 26 BUN 8 L Creatinine 0.7 L Estimated GFR > 60 BUN/Creatinine Ratio 11 Glucose 110 H POC Glucose Calcium 8.8 Total Bilirubin 0.60 AST 58 H ALT 30 Alkaline Phosphatase 82 Ammonia 39.0 Total Creatine Kinase 869 H Troponin T < 0.010 NT-Pro-B Natriuret Pep 10.42 Total Protein 8.3 H Albumin 4.0 Albumin/Globulin Ratio 0.9 Plasma/Serum Alcohol 0.24 H When compared to previous EKG there are: no significant change - Radiology Data Radiology results: report reviewed - Medical Decision Making Patient signed out to Dr. Sin for further evaluation. If CT chest is negative plan discharge with outpatient follow up. Critical care attestation.: If time is entered above; I have spent that time in minutes in the direct care of this critically ill patient, excluding procedure time. ED Disposition Clinical Impression: Alcohol abuse, Pulmonary infiltrate, HTN (hypertension) Disposition: - TO HOME OR SELFCARE Condition: Stable Instructions: Abuse of Alcohol (ED), Community-acquired Pneumonia (ED), Hypertension (ED) Additional Instructions: Take the medication as prescribed. Return if symptoms worsen. Follow up with the primary care clinic for further treatment and [facility] help with alcohol addiction. Prescriptions: Azithromycin [Zithromax Z-BRENT] 1 dose PO DAILY 5 Days tab Lisinopril [Zestril TAB] 20 mg PO QDAY #30 tablet Referrals: [facility] [Provider Group] - 3-[address] [facility] [Outside] - 3-5 Days <RAKESH SIN - Last Filed: 03/27/18 05:40> - Lab Data Result diagrams: 03/26/18 13:45 03/26/18 13:45 - Radiology Data ct angio chest IMPRESSION: Suboptimal enhancement of the pulmonary arteries limiting evaluation for potential pulmonary embolism. Lower lung edema or infiltrates. Gallstone. - Medical Decision Making pt ct angio suggestive of lower lobe edema vs infiltrate. Pt has a normal BNP. Will be empirically treated for pneumonia. Normal WBC count. Heart rate improved with IV fluids and further improved after ativan. thyoid neg, ct angio suboptimal but no mention of large central PE. He also received clonidine for hypertension. No signs of hypoxia or resp distress. will be d/[place] home. ED Disposition Is pt being admited?: No Does the pt Need Aspirin: No Time of Disposition: 05:36
[2018-03-26] MEDS ORDERED: NACL 0.9% 1000 ML 1,000 ML ONE (20:09)
[2018-03-26 20:19] LABS: Bacteria,Urine 1+ /HPF (Negative); Bilirubin,Urine NEG (Negative); Blood,Urine MOD (Negative); Color,Urine Yellow (Yellow); Mucus,Urine FEW /HPF; Urobilinogen,Urine < 2.0 mg/dL (<2.0)
[2018-03-26 20:25] LABS: Amphetamine Screen,Urine PRESUMPTIVE NEGATIVE; Benzodiazepines Screen,Urine PRESUMPTIVE NEGATIVE; Cannabinoid Screen,Urine PRESUMPTIVE NEGATIVE; Cocaine Screen,Urine PRESUMPTIVE NEGATIVE; Methadone Screen,Urine PRESUMPTIVE NEGATIVE; Opiate Screen,Urine PRESUMPTIVE NEGATIVE
--- NOTE | 2018-03-26 23:09 | Cat Scan Report ---
FINAL REPORT PROCEDURE: CT ANGIO CHEST TECHNIQUE: Computerized tomographic angiography of the chest was performed after the IV injection of iodinated nonionic contrast including image processing. The image data was postprocessed using 2-dimensional multiplanar reformatted (MPR) and 3-dimensional (MIP and/or volume rendered) techniques. HISTORY: Syncope COMPARISON: No prior studies are available for comparison. FINDINGS: Heart and pericardium: Coronary artery calcifications. Thoracic aorta: Ectasia of the ascending aorta measuring 4.1 cm. Pulmonary vasculature: Limited enhancement. Lymph nodes: No enlarged thoracic lymph nodes. Lungs: Lower lung interstitial and ground-glass increased opacities. Pleural space: No effusion, thickening, or pneumothorax. Musculoskeletal structures: Degenerative change. Upper abdominal structures: Solitary gallstone. IMPRESSION: Suboptimal enhancement of the pulmonary arteries limiting evaluation for potential pulmonary embolism. Lower lung edema or infiltrates. Gallstone.
[2018-03-27] MEDS ORDERED: NACL 0.9% 1000 ML 1,000 ML IV ONE (00:35)
[2018-03-27] MEDS ORDERED: CATAPRES PO ONE (02:56)
[2018-03-27 03:54] LABS: Free T4 (Free Thyroxine) 0.89 ng/dL (0.76-1.46)
[2018-03-27] MEDS ORDERED: ATIVAN IV ONE (05:00)
[2018-03-27 05:33] VITALS: BP 160/92
[2018-03-27] MEDS ORDERED: ZITHROMAX PO ONE (05:35)
== END 2018-03-27 07:04 | disposition home or self-care (01) ==
LOC: ED 11:51
DX: I10 Essential (primary) hypertension (principal); F10.10 Alcohol abuse, uncomplicated
CPT/HCPCS: 36415; 70450; 71045; 71275; 80053; 80307; 81001; 82140; 82550; 82962; 83880; 84439; 84443; 84484; 85025; 85610; 85730; 93005; 93010; 96361; 96374; 96375; 99285; G0480; J2060; J2405; J7030; Q9967; 80320

== ENCOUNTER 2019-06-09 15:17 | Emergency (ER) | payer OTHER ==
--- NOTE | 2019-06-09 15:35 | Event Note ---
ED Screening Note ED Screening Note: pt presents with left ankle and edema that began two days ago he states he bumped it against something at work and has continued walking on it had a previous fx in the left ankle PMHx HTN has not taken BP medication for two days +ETOH denies drug use This initial assessment/diagnostic orders/clinical plan/treatment(s) is/are subject to change based on patients health status, clinical progression and re- assessment by fellow clinical providers in the ED. Further treatment and workup at subsequent clinical providers discretion. Patient/guardian urged not to elope from the ED as their condition may be serious if not clinically assessed and managed. Initial orders include: XR of the left ankle
--- NOTE | 2019-06-09 16:28 | XRay Report ---
LEFT FOOT 3 VIEWS LEFT ANKLE 3 VIEWS INDICATION / CLINICAL INFORMATION: Left foot and ankle pain/edema after blunt trauma two days ago. COMPARISON: None available. FINDINGS: BONES and JOINT(S): No acute fracture or subluxation. No significant arthritis. SOFT TISSUES: Mild generalized edema is seen along the ankle. ADDITIONAL FINDINGS: None. IMPRESSION: 1. Mild left ankle edema. 2. No acute abnormality of the left foot. Signer Name: Jono Ramírez MD Signed: 06/09/2019 4:23 PM Workstation Name: [id number]
[2019-06-09] MEDS ORDERED: IBUPROFEN PO ONE (17:31)
--- NOTE | 2019-06-09 17:35 | Emergency Department Report ---
ED Extremity Problem HPI - General Chief complaint: Extremity Injury, Lower Stated complaint: LT ANKLE SWOLLEN Time Seen by Provider: 06/09/19 15:32 Source: patient Mode of arrival: Wheelchair Limitations: No Limitations - History of Present Illness Initial comments: 53-year-old male presents to ED complaining of left ankle swelling and pain times 2 days. Patient states that on Thursday he was walking and doing some work when he accidentally pivoted wrong way and twisted his left ankle. Patient denies falling or any other trauma. Patient states pain with applied pressure to the left foot. MD Complaint: joint swelling (left ankle) Location: left, lower extremity History of Same: No -: Yes arthralgia Severity scale (0 -10): 9 - Related Data Previous Rx's Medication Instructions Recorded Last Taken Type Ciprofloxacin HCl [Cipro] 500 mg PO Q12H #14 tab 11/26/13 Unknown Rx HYDROcodone/APAP 5-325 [[place] 1 each PO Q6HR PRN #16 tablet 11/26/13 Unknown Rx 5-325 mg TAB] traMADol [Ultram 50 MG tab] 50 mg PO Q6HR PRN #20 tablet 12/04/13 Unknown Rx Cephalexin [Keflex] 500 mg PO TID #30 capsule 06/05/17 Unknown Rx predniSONE [Deltasone] 40 mg PO QDAY 5 Days tab 06/05/17 Unknown Rx traMADol [Ultram 50 MG tab] 50 mg PO Q4HR PRN #30 tablet 06/05/17 Unknown Rx Azithromycin [Zithromax Z-BRENT] 1 dose PO DAILY 5 Days tab 03/27/18 Unknown Rx Lisinopril [Zestril TAB] 20 mg PO QDAY #30 tablet 03/27/18 Unknown Rx Cyclobenzaprine [Flexeril] 10 mg PO QHS PRN #20 tablet 06/09/19 Unknown Rx Naproxen [Naprosyn TAB] 500 mg PO BID #30 tablet 06/09/19 Unknown Rx Allergies Allergy/AdvReac Type Severity Reaction Status Date / Time No Known Allergies Allergy Verified 06/09/19 15:19 ED Review of Systems ROS: Stated complaint: LT ANKLE SWOLLEN Other details as noted in HPI Comment: All other systems reviewed and negative ED Past Medical Hx - Past Medical History Previous Medical History?: Yes Hx Hypertension: Yes Additional medical history: left ankle fracture - Surgical History Past Surgical History?: No - Social History Smoking Status: Never Smoker Substance Use Type: Alcohol - Medications Home Medications: Home Medications Medication Instructions Recorded Confirmed Last Taken Type Ciprofloxacin HCl [Cipro] 500 mg PO Q12H #14 tab 11/26/13 Unknown Rx HYDROcodone/APAP 5-325 [[place] 1 each PO Q6HR PRN #16 tablet 11/26/13 Unknown Rx 5-325 mg TAB] traMADol [Ultram 50 MG tab] 50 mg PO Q6HR PRN #20 tablet 12/04/13 Unknown Rx Cephalexin [Keflex] 500 mg PO TID #30 capsule 06/05/17 Unknown Rx predniSONE [Deltasone] 40 mg PO QDAY 5 Days tab 06/05/17 Unknown Rx traMADol [Ultram 50 MG tab] 50 mg PO Q4HR PRN #30 tablet 06/05/17 Unknown Rx Azithromycin [Zithromax Z-BRENT] 1 dose PO DAILY 5 Days tab 03/27/18 Unknown Rx Lisinopril [Zestril TAB] 20 mg PO QDAY #30 tablet 03/27/18 Unknown Rx Cyclobenzaprine [Flexeril] 10 mg PO QHS PRN #20 tablet 06/09/19 Unknown Rx Naproxen [Naprosyn TAB] 500 mg PO BID #30 tablet 06/09/19 Unknown Rx ED Physical Exam - General Limitations: No Limitations General appearance: alert, in no apparent distress - Head Head exam: Present: atraumatic, normocephalic - Eye Eye exam: Present: normal appearance - ENT ENT exam: Present: mucous membranes moist - Neck Neck exam: Present: normal inspection - Respiratory Respiratory exam: Present: normal lung sounds bilaterally. Absent: respiratory distress - Cardiovascular Cardiovascular Exam: Present: regular rate, normal rhythm. Absent: systolic murmur, diastolic murmur, rubs, gallop - GI/Abdominal GI/Abdominal exam: Present: soft, normal bowel sounds - Rectal Rectal exam: Present: deferred - Extremities Exam Extremities exam: Present: normal inspection, full ROM, tenderness (to palpation of the lateral aspect of the ankle), joint swelling. Absent: pedal edema - Expanded Lower Extremity Exam Left Ankle exam: Present: full ROM, tenderness, swelling (mild). Absent: abrasion Foot/Toe exam: Present: normal inspection, full ROM. Absent: tenderness, swelling, abrasion Neuro vascular tendon exam: Present: no vascular compromise Gait: Positive: observed and normal - Back Exam Back exam: Present: normal inspection, full ROM. Absent: tenderness - Neurological Exam Neurological exam: Present: alert, oriented X3, normal gait - Psychiatric Psychiatric exam: Present: normal affect, normal mood - Skin Skin exam: Present: warm, dry, intact, normal color. Absent: rash ED Course Vital Signs 06/09/19 06/09/19 06/09/19 15:33 17:37 18:04 Temperature 97.8 F Pulse Rate 98 H 89 Respiratory 18 16 16 Rate Blood Pressure 139/80 134/78 [Right] O2 Sat by Pulse 96 100 Oximetry ED Medical Decision Making - Radiology Data Radiology results: report reviewed, image reviewed Fluoro Time In Minutes: LEFT FOOT 3 VIEWS LEFT ANKLE 3 VIEWS INDICATION / CLINICAL INFORMATION: Left foot and ankle pain/edema after blunt trauma two days ago. COMPARISON: None available. FINDINGS: BONES and JOINT(S): No acute fracture or subluxation. No significant arthritis. SOFT TISSUES: Mild generalized edema is seen along the ankle. ADDITIONAL FINDINGS: None. IMPRESSION: 1. Mild left ankle edema. 2. No acute abnormality of the left foot. Signer Name: Jono Ramírez MD Signed: 06/09/2019 4:23 PM Workstation Name: [id number] Transcribed By: GUALBERTO Dictated By: Jono Ramírez MD Electronically Authenticated By: Jono Ramírez MD Signed Date/Time: 06/09/19 1623 - Medical Decision Making 53-year-old female presents to ED with sprain left ankle ED course: Patient received xray in ED X-rays show no acute dislocation or fracture. Discussed findings with the patient. Vital signs are normal patient is in no acute distress Discussed with patient follow-up with primary care physician. Discussed the patient and take medications as prescribed. Patient has no neurological deficit. Patient is alert and oriented 3 and understands all instructions given. Discussed drowsiness effect of Flexeril makes her drowsy and not to operate machinery while taking flexeril Critical care attestation.: If time is entered above; I have spent that time in minutes in the direct care of this critically ill patient, excluding procedure time. ED Disposition Clinical Impression: Left ankle sprain Disposition: DC-01 TO HOME OR SELFCARE Is pt being admited?: No Does the pt Need Aspirin: No Condition: Stable Instructions: Ankle Sprain (ED), Ankle Exercises (GEN) Additional Instructions: Make sure to follow up with the primary care physician as discussed. Take all your medications as you've been prescribed. If you have any worsening symptoms or develop new symptoms please return to ED immediately. Prescriptions: Cyclobenzaprine [Flexeril] 10 mg PO QHS PRN #20 tablet PRN Reason: Muscle Spasm Naproxen [Naprosyn TAB] 500 mg PO BID #30 tablet [facility]: [facility] - 3-5 Days ANNAMARIA CUMMINGS MD [Staff Physician] - 3-5 Days Forms: Work/School Release Form(ED) Time of Disposition: 17:40
[2019-06-09 18:05] VITALS: BP 134/78
== END 2019-06-09 18:04 | disposition home or self-care (01) ==
LOC: ED 15:17
DX: S93.402A Sprain of unspecified ligament of left ankle, initial encounter (principal); I10 Essential (primary) hypertension; Z79.899 Other long term (current) drug therapy; W50.2XXA Accidental twist by another person, initial encounter; Y93.89 Activity, other specified; Y92.69 Other specified industrial and construction area as the place of occurrence of the external cause; Y99.8 Other external cause status
CPT/HCPCS: 99283

== ENCOUNTER 2019-08-10 03:31 | Emergency (ER) | payer SELFPAY ==
[2019-08-10 03:45] VITALS: BP 131/89
[2019-08-10] MEDS ORDERED: TORADOL IM ONE (03:59)
[2019-08-10] MEDS ORDERED: DELTASONE PO ONE (03:59)
[2019-08-10] MEDS ORDERED: DECADRON IM ONE (03:59)
--- NOTE | 2019-08-10 04:38 | Emergency Department Report ---
ED General Adult HPI - General Chief complaint: Extremity Injury, Upper Stated complaint: HAND PAIN Source: patient Mode of arrival: Ambulatory Limitations: No Limitations - History of Present Illness Initial comments: Patient is a 54-year-old -[place] male with a history of chronic osteoarthritis who presents to the ED with persistent bilateral tingling sensation of hands and wrists and neck pain for the last 1 month or even longer. Patient states that in the last 1 week the pain has persisted and that is unable to sleep cause of tingling sensation in the hands and wrists. Patient denies chest pain, shortness of breath, dizziness, fever, chills, cough, headache, traumatic injury, heavy lifting or back pain and abdominal pain, nausea and vomiting or diaphoresis. MD Complaint: Bilateral hand and wrist tingling; neck pain -: Gradual, month(s) (1) Location: neck, upper extremity (bilateral hands, wrist) Radiation: non-radiation Severity scale (0 -10): 7 Quality: aching, sharp, constant Consistency: constant Improves with: none Worsens with: none Associated Symptoms: denies other symptoms. denies: confusion, chest pain, cough, diaphoresis, fever/chills, loss of appetite, malaise, nausea/vomiting, rash, shortness of breath, syncope, weakness - Related Data Previous Rx's Medication Instructions Recorded Last Taken Type Ciprofloxacin HCl [Cipro] 500 mg PO Q12H #14 tab 11/26/13 Unknown Rx HYDROcodone/APAP 5-325 [[place] 1 each PO Q6HR PRN #16 tablet 11/26/13 Unknown Rx 5-325 mg TAB] traMADol [Ultram 50 MG tab] 50 mg PO Q6HR PRN #20 tablet 12/04/13 Unknown Rx Cephalexin [Keflex] 500 mg PO TID #30 capsule 06/05/17 Unknown Rx predniSONE [Deltasone] 40 mg PO QDAY 5 Days tab 06/05/17 Unknown Rx traMADol [Ultram 50 MG tab] 50 mg PO Q4HR PRN #30 tablet 06/05/17 Unknown Rx Azithromycin [Zithromax Z-BRENT] 1 dose PO DAILY 5 Days tab 03/27/18 Unknown Rx Lisinopril [Zestril TAB] 20 mg PO QDAY #30 tablet 03/27/18 Unknown Rx Cyclobenzaprine [Flexeril] 10 mg PO QHS PRN #20 tablet 06/09/19 Unknown Rx Naproxen [Naprosyn TAB] 500 mg PO BID #30 tablet 06/09/19 Unknown Rx Naproxen [Naprosyn] 500 mg PO Q12H PRN #20 tablet 08/10/19 Unknown Rx predniSONE [Deltasone] 60 mg PO DAILY #15 tablet 08/10/19 Unknown Rx traMADol [Ultram] 50 mg PO Q6HR PRN #12 tablet 08/10/19 Unknown Rx Allergies Allergy/AdvReac Type Severity Reaction Status Date / Time No Known Allergies Allergy Verified 06/09/19 15:19 ED Review of Systems ROS: Stated complaint: HAND PAIN Other details as noted in HPI Constitutional: denies: chills, fever Eyes: denies: eye pain, eye discharge, vision change ENT: denies: ear pain, throat pain Respiratory: denies: cough, shortness of breath, wheezing Cardiovascular: denies: chest pain, palpitations Endocrine: no symptoms reported Gastrointestinal: denies: abdominal pain, nausea, diarrhea Genitourinary: denies: urgency, dysuria Musculoskeletal: arthralgia (bilateral hand and wrist pain; neck pain), myalgia, other (bilateral hand tingling sensation). denies: back pain, joint swelling Skin: denies: rash, lesions Neurological: denies: headache, weakness, paresthesias Psychiatric: denies: anxiety, depression Hematological/Lymphatic: denies: easy bleeding, easy bruising ED Past Medical Hx - Past Medical History Previous Medical History?: Yes Hx Hypertension: Yes Additional medical history: left ankle fracture - Surgical History Past Surgical History?: No - Social History Smoking Status: Never Smoker Substance Use Type: Alcohol - Medications Home Medications: Home Medications Medication Instructions Recorded Confirmed Last Taken Type Ciprofloxacin HCl [Cipro] 500 mg PO Q12H #14 tab 11/26/13 Unknown Rx HYDROcodone/APAP 5-325 [[place] 1 each PO Q6HR PRN #16 tablet 11/26/13 Unknown Rx 5-325 mg TAB] traMADol [Ultram 50 MG tab] 50 mg PO Q6HR PRN #20 tablet 12/04/13 Unknown Rx Cephalexin [Keflex] 500 mg PO TID #30 capsule 06/05/17 Unknown Rx predniSONE [Deltasone] 40 mg PO QDAY 5 Days tab 06/05/17 Unknown Rx traMADol [Ultram 50 MG tab] 50 mg PO Q4HR PRN #30 tablet 06/05/17 Unknown Rx Azithromycin [Zithromax Z-BRENT] 1 dose PO DAILY 5 Days tab 03/27/18 Unknown Rx Lisinopril [Zestril TAB] 20 mg PO QDAY #30 tablet 03/27/18 Unknown Rx Cyclobenzaprine [Flexeril] 10 mg PO QHS PRN #20 tablet 06/09/19 Unknown Rx Naproxen [Naprosyn TAB] 500 mg PO BID #30 tablet 06/09/19 Unknown Rx Naproxen [Naprosyn] 500 mg PO Q12H PRN #20 tablet 08/10/19 Unknown Rx predniSONE [Deltasone] 60 mg PO DAILY #15 tablet 08/10/19 Unknown Rx traMADol [Ultram] 50 mg PO Q6HR PRN #12 tablet 08/10/19 Unknown Rx ED Physical Exam - General Limitations: No Limitations General appearance: alert, in no apparent distress - Head Head exam: Present: atraumatic, normocephalic, normal inspection - Eye Eye exam: Present: normal appearance, PERRL, EOMI Pupils: Present: normal accommodation - ENT ENT exam: Present: normal exam, normal orophraynx, mucous membranes moist, TM's normal bilaterally, normal external ear exam - Neck Neck exam: Present: normal inspection, tenderness (Palpable cervical paraspinal musculoskeletal tenderness), full ROM - Respiratory Respiratory exam: Present: normal lung sounds bilaterally. Absent: respiratory distress, wheezes, rales, chest wall tenderness, accessory muscle use, decreased breath sounds, prolonged expiratory - Cardiovascular Cardiovascular Exam: Present: regular rate, normal rhythm, normal heart sounds. Absent: systolic murmur, diastolic murmur, rubs, gallop - GI/Abdominal GI/Abdominal exam: Present: soft, normal bowel sounds. Absent: distended, tenderness, guarding, hyperactive bowel sounds, hypoactive bowel sounds - Rectal Rectal exam: Present: deferred - Extremities Exam Extremities exam: Present: normal inspection, full ROM, tenderness (Bilateral hand and wrist tenderness), normal capillary refill. Absent: pedal edema, joint swelling - Back Exam Back exam: Present: normal inspection, full ROM. Absent: tenderness, CVA tenderness (R), muscle spasm, paraspinal tenderness, vertebral tenderness - Neurological Exam Neurological exam: Present: alert, oriented X3, CN II-XII intact, normal gait, reflexes normal - Psychiatric Psychiatric exam: Present: normal affect, normal mood - Skin Skin exam: Present: warm, dry, intact, normal color. Absent: rash ED Course Vital Signs 08/10/19 08/10/19 03:41 04:45 Temperature 97.8 F Pulse Rate 81 Respiratory 16 18 Rate Blood Pressure 131/89 O2 Sat by Pulse 94 Oximetry - Reevaluation(s) Reevaluation #1: 08/11/19 06:18 This is a 54-year-old male who presents to the ED with bilateral hand and wrist tingling sensation and neck pain for one month. In the ED, patient is alert and oriented 3 and is not in distress with normal vital signs. Based on the physical exam findings, the patient's symptoms are likely due to chronic cervical radiculopathy affecting his bilateral hands and wrists. Patient was treated for pain in the ED and discharged home on pain medications and was advised to follow-up with his primary care physician in 7-10 days for reevaluation or return to the ED immediately if symptoms get worse. ED Medical Decision Making - Medical Decision Making This is a 54-year-old male who presents to the ED with bilateral hand and wrist tingling sensation and neck pain for one month. In the ED, patient is alert and oriented 3 and is not in distress with normal vital signs. Based on the physical exam findings, the patient's symptoms are likely due to chronic cervical radiculopathy affecting his bilateral hands and wrists. Patient was treated for pain in the ED and discharged home on pain medications and was advised to follow-up with his primary care physician in 7-10 days for reevaluation or return to the ED immediately if symptoms get worse - Differential Diagnosis cervical radiculopathy; chronic osteoathritis; chronic pain Critical care attestation.: If time is entered above; I have spent that time in minutes in the direct care of this critically ill patient, excluding procedure time. ED Disposition Clinical Impression: Cervical paraspinal muscle spasm, Cervical radiculopathy, Chronic osteoa rthritis Disposition: DC-01 TO HOME OR SELFCARE Is pt being admited?: No Does the pt Need Aspirin: No Condition: Stable Instructions: Osteoarthritis (ED), Cervical Radiculopathy (ED), Degenerative Disc Disease (ED) Additional Instructions: Take medication with food, drink plenty of fluids and follow up with your primary care physician in 7-10 days for reevaluation. Return to the ED immediately if symptoms get worse. Prescriptions: predniSONE [Deltasone] 60 mg PO DAILY #15 tablet Naproxen [Naprosyn] 500 mg PO Q12H PRN #20 tablet PRN Reason: Pain , Severe (7-10) traMADol [Ultram] 50 mg PO Q6HR PRN #12 tablet PRN Reason: Pain Referrals: DEVAN WEBER MD [Primary Care Provider] - 3-5 Days Time of Disposition: 04:36 Print Language: MAORI
== END 2019-08-10 05:06 | disposition home or self-care (01) ==
LOC: ED 03:31
DX: M54.12 Radiculopathy, cervical region (principal); M19.90 Unspecified osteoarthritis, unspecified site; M62.838 Other muscle spasm; I10 Essential (primary) hypertension; Z79.899 Other long term (current) drug therapy
CPT/HCPCS: 96372; 99282; J1100; J1885; J7512

== ENCOUNTER 2019-10-11 16:04 | Inpatient (IN) | payer SELFPAY ==
[2019-10-11] MEDS ORDERED: chlordiazePOXIDE 25 MG CAP PO PRN ×2 (17:08)
[2019-10-11] MEDS ORDERED: LORazepam 2 MG TAB PO PRN (17:08)
--- NOTE | 2019-10-11 17:10 | Emergency Department Report ---
<LISHA TURCIOS - Last Filed: 10/12/19 06:27> ED General Adult HPI - General Chief complaint: Seizure Stated complaint: SEIZURE Time Seen by Provider: 10/11/19 17:04 - Related Data Previous Rx's Medication Instructions Recorded Last Taken Type Lisinopril [Zestril TAB] 20 mg PO QDAY #30 tablet 03/27/18 Unknown Rx Naproxen [Naprosyn] 500 mg PO Q12H PRN #20 tablet 08/10/19 Unknown Rx Aspirin [Aspirin BABY CHEW TAB] 81 mg PO QDAY #30 tab.chew 08/22/19 Unknown Rx AtorvaSTATin [Lipitor] 40 mg PO QHS #30 tablet 08/22/19 Unknown Rx Multivitamin with Folic Acid [[facility] 400 mcg PO QDAY #30 tablet 10/11/19 Unknown Rx One Daily Essential Tablet] chlordiazePOXIDE [Librium] 25 mg PO Q6H PRN #25 capsule 10/11/19 Unknown Rx Allergies Allergy/AdvReac Type Severity Reaction Status Date / Time No Known Allergies Allergy Verified 08/19/19 17:51 ED Past Medical Hx - Medications Home Medications: Home Medications Medication Instructions Recorded Confirmed Last Taken Type Lisinopril [Zestril TAB] 20 mg PO QDAY #30 tablet 03/27/18 10/12/19 Unknown Rx Naproxen [Naprosyn] 500 mg PO Q12H PRN #20 tablet 08/10/19 10/12/19 Unknown Rx Aspirin [Aspirin BABY CHEW TAB] 81 mg PO QDAY #30 tab.chew 08/22/19 10/12/19 Unknown Rx AtorvaSTATin [Lipitor] 40 mg PO QHS #30 tablet 08/22/19 10/12/19 Unknown Rx Multivitamin with Folic Acid [[facility] 400 mcg PO QDAY #30 tablet 10/11/19 Unknown Rx One Daily Essential Tablet] chlordiazePOXIDE [Librium] 25 mg PO Q6H PRN #25 capsule 10/11/19 Unknown Rx ED Medical Decision Making - Lab Data Result diagrams: 10/11/19 17:58 10/11/19 17:58 ED Disposition Clinical Impression: Seizure-like activity, Rhabdomyolysis Disposition: DC-[id number] OP ADMIT IP TO THIS HOSP Is pt being admited?: Yes Condition: Stable Time of Disposition: 06:28 <ALISHA LOUISE - Last Filed: 10/12/19 14:17> ED General Adult HPI - General Source: patient, EMS ( EMS documentation not available at time of chart dictation ), RN notes reviewed, old records reviewed Mode of arrival: Stretcher Limitations: No Limitations - History of Present Illness Initial comments: This is a 54-year-old gentleman. This patient has a past medical history of DJD, cervical disc protrusion, history of subacute stroke, alcohol use, history of subdural hematoma, hypertension The patient is brought to the hospital for reported convulsive activity while at work. The patient does not recall what happened. He thinks he may have had a seizure but he is not certain. He denies physical pain at this time. He states his last alcoholic drink was over 24 hours ago. He denies urinary symptoms, and he is not homicidal or suicidal. -: Sudden Consistency: now resolved Improves with: none Worsens with: none ED Review of Systems ROS: Stated complaint: SEIZURE Other details as noted in HPI Constitutional: denies: fever Eyes: denies: eye discharge ENT: denies: congestion Respiratory: denies: wheezing Cardiovascular: syncope (question syncope versus seizure, the patient is not sure). denies: chest pain Gastrointestinal: denies: abdominal pain, nausea, vomiting Genitourinary: denies: dysuria Musculoskeletal: denies: back pain Skin: denies: lesions Neurological: confusion Psychiatric: denies: homicidal thoughts, suicidal thoughts ED Past Medical Hx - Past Medical History Previous Medical History?: Yes Hx Hypertension: Yes Hx Congestive Heart Failure: No Hx Diabetes: No Hx Asthma: No Hx COPD: No Additional medical history: left ankle fracture - Surgical History Past Surgical History?: No - Social History Smoking Status: Unknown if ever smoked Substance Use Type: None ED Physical Exam - General Limitations: No Limitations General appearance: alert, in no apparent distress - Head Head exam: Present: atraumatic, normocephalic - Eye Eye exam: Present: normal appearance, EOMI, other (visual acuity intact to finger counting, color perception, reading at a close distance). Absent: nystagmus - ENT ENT exam: Present: normal exam, normal orophraynx, mucous membranes moist, normal external ear exam - Neck Neck exam: Present: normal inspection, full ROM. Absent: tenderness, meningismus - Respiratory Respiratory exam: Present: normal lung sounds bilaterally. Absent: respiratory distress, chest wall tenderness - Cardiovascular Cardiovascular Exam: Present: regular rate, normal rhythm, normal heart sounds. Absent: bradycardia, tachycardia, irregular rhythm, systolic murmur, diastolic murmur, rubs, gallop - GI/Abdominal GI/Abdominal exam: Present: soft. Absent: distended, tenderness, guarding, rebound, rigid, pulsatile mass - Rectal Rectal exam: Present: deferred - Extremities Exam Extremities exam: Present: normal inspection, full ROM, other (2+ pulses noted in the bilateral upper, lower extremities. There is no long bone tenderness. Musculoskeletal compartments are soft. The pelvis is stable.). Absent: pedal edema, joint swelling, calf tenderness - Back Exam Back exam: Present: normal inspection, full ROM. Absent: tenderness, CVA t enderness (R), CVA tenderness (L), paraspinal tenderness, vertebral tenderness - Neurological Exam Neurological exam: Present: alert (there is no past-pointing. There is normal [id number]. There is no pronator drift.), oriented X3, normal gait, other (there is no facial droop. The tongue is midline. Extraocular movements are intact bilaterally. Patient speaking in full complete sentences. Shoulder shrug is intact bilaterally. Hearing is grossly intact bilaterally. Visual acuity intact to finger counting and color perception at a close distance. 5/5 strength 4 extremities. Sensation intact to light touch in 4 extremities.). Absent: motor sensory deficit - Psychiatric Psychiatric exam: Present: flat affect - Skin Skin exam: Present: warm, dry, intact, normal color. Absent: rash ED Course Vital Signs 10/11/19 10/11/19 10/11/19 16:40 17:00 17:32 Temperature 97.6 F Pulse Rate 88 88 Respiratory 16 16 18 Rate Blood Pressure 167/102 Blood Pressure 169/97 [Left] O2 Sat by Pulse 95 95 Oximetry 10/11/19 10/11/19 10/11/19 19:15 19:30 19:46 Temperature Pulse Rate 95 H 96 H Respiratory 24 21 22 Rate Blood Pressure Blood Pressure [Left] O2 Sat by Pulse 95 97 97 Oximetry 10/11/19 10/11/19 10/11/19 20:00 20:16 20:30 Temperature Pulse Rate 96 H 81 93 H Respiratory 26 H 21 33 H Rate Blood Pressure 179/107 179/107 Blood Pressure [Left] O2 Sat by Pulse 96 97 96 Oximetry 10/11/19 10/11/19 10/11/19 21:16 21:30 22:00 Temperature Pulse Rate 82 83 76 Respiratory 20 23 26 H Rate Blood Pressure 163/100 163/100 161/95 Blood Pressure [Left] O2 Sat by Pulse 95 98 95 Oximetry 10/11/19 10/11/19 10/12/19 22:30 23:00 00:00 Temperature Pulse Rate 73 75 78 Respiratory 21 28 H 18 Rate Blood Pressure 161/95 160/93 138/87 Blood Pressure [Left] O2 Sat by Pulse 95 92 94 Oximetry 10/12/19 10/12/19 10/12/19 01:00 02:00 02:30 Temperature Pulse Rate 81 75 71 Respiratory 26 H 22 21 Rate Blood Pressure 147/98 134/72 134/72 Blood Pressure [Left] O2 Sat by Pulse 97 97 98 Oximetry 10/12/19 10/12/19 10/12/19 03:00 04:00 05:00 Temperature 98 F Pulse Rate 79 79 76 Respiratory 27 H 25 H 21 Rate Blood Pressure 153/87 132/73 126/72 Blood Pressure [Left] O2 Sat by Pulse 92 94 93 Oximetry 10/12/19 10/12/19 10/12/19 06:00 06:30 06:45 Temperature Pulse Rate 70 83 75 Respiratory 22 21 18 Rate Blood Pressure 133/73 133/73 Blood Pressure [Left] O2 Sat by Pulse 98 95 94 Oximetry 10/12/19 10/12/19 10/12/19 06:54 07:01 07:15 Temperature 98.1 F Pulse Rate 78 75 77 Respiratory 15 26 H 21 Rate Blood Pressure 151/88 151/88 Blood Pressure 117/64 [Left] O2 Sat by Pulse 99 91 94 Oximetry 10/12/19 10/12/19 10/12/19 07:31 07:45 07:46 Temperature Pulse Rate 71 84 Respiratory 26 H 20 15 Rate Blood Pressure 151/88 151/88 Blood Pressure [Left] O2 Sat by Pulse 94 96 99 Oximetry - Reevaluation(s) Reevaluation #1: 10/11/19 22:53 Differential diagnosis, including not limited to: Seizure, structural cardiac disease, intracranial lesion, alcohol withdrawal, dehydration Assessment and plan: 54-year-old gentleman with possible seizure, less likely syncope. He is afebrile with reassuring vital signs. He is clinically sober at this time, and walks with a steady gait. He denied DVT and pulmonary embolism risk factors to this provider. He has evidence of mild alcohol withdrawal, manifest by minimal tongue fasciculations and dry mucous membranes. Patient placed on alcohol withdrawal protocol, given IV fluids, and Librium. He is found to have evidence of myositis, manifest by CK of 1700 He is given a few liters of IV fluid, CKs rechecked and is uptrending. Additional IV fluids ordered. Of note, patient has been observed in this department for hours without recurrent convulsive event, seizure, or loss of consciousness. Assuming CK is down trending after additional IV fluids, we would consider the patient medically suitable for discharge. Reevaluation #2: 10/11/19 22:56 The patient had an echocardiogram less than 2 months ago, which was essentially unremarkable, EF of 50%, also had carotid duplex which was unremarkable for significant stenoses. - Consultations Consultation #1: 10/12/19 14:16 care was signed out to Dr Shailesh Turcios to follow up on repeat ck--> if downtrending would discharge. if uptrending would admit ED Medical Decision Making - Lab Data Result diagrams: 10/11/19 17:58 10/11/19 17:58 Vital Signs 10/11/19 10/11/19 10/11/19 16:40 17:00 17:32 Temperature 97.6 F Pulse Rate 88 88 Respiratory 16 16 18 Rate Blood Pressure 167/102 Blood Pressure 169/97 [Left] O2 Sat by Pulse 95 95 Oximetry 10/11/19 10/11/19 10/11/19 19:15 19:30 19:46 Temperature Pulse Rate 95 H 96 H Respiratory 24 21 22 Rate Blood Pressure Blood Pressure [Left] O2 Sat by Pulse 95 97 97 Oximetry 10/11/19 10/11/19 10/11/19 20:00 20:16 20:30 Temperature Pulse Rate 96 H 81 93 H Respiratory 26 H 21 33 H Rate Blood Pressure 179/107 179/107 Blood Pressure [Left] O2 Sat by Pulse 96 97 96 Oximetry 10/11/19 10/11/19 10/11/19 21:16 21:30 22:00 Temperature Pulse Rate 82 83 76 Respiratory 20 23 26 H Rate Blood Pressure 163/100 163/100 161/95 Blood Pressure [Left] O2 Sat by Pulse 95 98 95 Oximetry Lab Results 10/11/19 10/11/19 10/11/19 Range/Units 17:58 17:58 17:58 WBC 4.3 L (4.5-11.0) K/mm3 RBC 4.88 (3.65-5.03) M/mm3 Hgb 14.4 (11.8-15.2) gm/dl Hct 43.2 (35.5-45.6) % MCV 89 (84-94) fl MCH 30 (28-32) pg MCHC 33 (32-34) % RDW 14.3 (13.2-15.2) % Plt Count 186 (140-440) K/mm3 Sodium 138 (137-145) mmol/L Potassium 3.5 L (3.6-5.0) mmol/L Chloride 99.6 (98-107) mmol/L Carbon Dioxide 21 L (22-30) mmol/L Anion Gap 21 mmol/L BUN 14 (9-20) mg/dL Creatinine 0.6 L (0.8-1.5) mg/dL Estimated GFR > 60 ml/min BUN/Creatinine Ratio 23 % Glucose 110 H (75-100) mg/dL Calcium 10.1 (8.4-10.2) mg/dL Magnesium 1.90 (1.7-2.3) mg/dL Total Creatine Kinase 1701 H (55-170) units/L Salicylates < 0.3 L (2.8-20.0) mg/dL Acetaminophen (10.0-30.0) ug/mL Plasma/Serum Alcohol (0-0.07) % 10/11/19 10/11/19 10/11/19 Range/Units 17:58 18:04 21:39 WBC (4.5-11.0) K/mm3 RBC (3.65-5.03) M/mm3 Hgb (11.8-15.2) gm/dl Hct (35.5-45.6) % MCV (84-94) fl MCH (28-32) pg MCHC (32-34) % RDW (13.2-15.2) % Plt Count (140-440) K/mm3 Sodium (137-145) mmol/L Potassium (3.6-5.0) mmol/L Chloride (98-107) mmol/L Carbon Dioxide (22-30) mmol/L Anion Gap mmol/L BUN (9-20) mg/dL Creatinine (0.8-1.5) mg/dL Estimated GFR ml/min BUN/Creatinine Ratio % Glucose (75-100) mg/dL Calcium (8.4-10.2) mg/dL Magnesium (1.7-2.3) mg/dL Total Creatine Kinase 1837 H (55-170) units/L Salicylates (2.8-20.0) mg/dL Acetaminophen < 5.0 L (10.0-30.0) ug/mL Plasma/Serum Alcohol < 0.01 (0-0.07) % - EKG Data -: EKG Interpreted by Me EKG shows normal: sinus rhythm Rate: normal - EKG Data When compared to previous EKG there are: no significant change 10/11/19 22:56 EKG today shows a sinus rhythm, 56 bpm, axis deviation, left anterior fascicular block, QTC 443 ms, the EKG is abnormal and unchanged from prior EKG from July 2019. - Radiology Data Radiology results: report reviewed, image reviewed Critical care attestation.: If time is entered above; I have spent that time in minutes in the direct care of this critically ill patient, excluding procedure time. ED Disposition Is pt being admited?: Yes Does the pt Need Aspirin: No
[2019-10-11 18:36] LABS: Hematocrit 43.2 % (35.5-45.6); Hemoglobin 14.4 gm/dl (11.8-15.2); Mean Corpuscular HGB Conc 33 % (32-34); Mean Corpuscular Volume 89 fl (84-94); Platelet Count 186 K/mm3 (140-440); Red Blood Count 4.88 M/mm3 (3.65-5.03); Red Cell Distribution Width 14.3 % (13.2-15.2)
[2019-10-11 18:49] LABS: BUN/Creatinine Ratio 23; Blood Urea Nitrogen 14 mg/dL (9-20); Calcium 10.1 mg/dL (8.4-10.2); Hemolysis Index 13
[2019-10-11] MEDS ORDERED: D5W/0.45% NACL 1,000 ML IV SCH (19:00)
--- NOTE | 2019-10-11 19:16 | Cat Scan Report ---
CT head/brain wo con INDICATION / CLINICAL INFORMATION: 54 years Male; sz hx of brain bleed. TECHNIQUE: Routine CT head without contrast. All CT scans at this location are performed using CT dos e reduction for ALARA by means of automated exposure control. COMPARISON: The study is compared to the previous CT of 08/19/2019. FINDINGS: BRAIN / INTRACRANIAL CONTENTS: There is continued encephalomalacia along the lateral right temporal l obe which may reflect old infarct. The findings correlate with the previous CTA. There is otherwise m oderate cerebral white matter disease most consistent with microvascular angiopathy. The findings als o correlate with the prior study at. There is no clear CT evidence of acute intracranial hemorrhage o r significant mass effect at. There is mild cerebral atrophy. The ventricular system is correspondingly appropriate in size and con figuration without interval change. ORBITS: No significant abnormality of visualized orbits. SINUSES / MASTOIDS: No significant abnormality the visualized paranasal sinuses or mastoid air cells. CRANIOCERVICAL JUNCTION: No significant abnormality. ADDITIONAL FINDINGS: None. IMPRESSION: 1. There is continued microvascular angiopathy as well as an septal malacia along the right temporal lobe as detailed above. There is no CT evidence of acute intracranial hemorrhage or significant overa ll change from 08/19/2019. Signer Name: Alexandre Grimaldo MD Signed: 10/11/2019 7:11 PM Workstation Name: [email or web address]
[2019-10-11] MEDS ORDERED: SODIUM CHLORIDE 0.9% 1000 ML 1,000 ML IV ONE ×3 (19:53→22:47)
[2019-10-11] MEDS ORDERED: POTASSIUM CHLORIDE ER 20 MEQ TAB PO ONE (20:06)
[2019-10-11] MEDS: POTASSIUM CHLORIDE 10 MEQ 10 MEQ/100 ML BAG IV SCH ×3 (20:53→23:02)
[2019-10-11] MEDS ORDERED: SODIUM CHLORIDE 0.9% 1000 ML 2,000 ML IV ONE (22:47)
[2019-10-12] MEDS: POTASSIUM CHLORIDE 10 MEQ 10 MEQ/100 ML BAG IV SCH (00:03)
--- NOTE | 2019-10-12 05:31 | Event Note ---
Date: 10/12/19 Patient noted to have uptrending CK's despite fluid hydration. Patient to be admitted to the hospitalist for continued management and treatment.
[2019-10-12] MEDS ORDERED: ALBUTEROL 2.5 MG/3 ML NEBU IH PRN (07:56)
[2019-10-12] MEDS ORDERED: ONDANSETRON 4 MG/2 ML INJ IV PRN (07:56)
[2019-10-12] MEDS ORDERED: ACETAMINOPHEN 325 MG TAB PO PRN (07:56)
[2019-10-12] MEDS ORDERED: LORazepam 2 MG/ML VIAL IV PRN (07:57)
--- NOTE | 2019-10-12 07:59 | History and Physical Report ---
History of Present Illness Date of examination: 10/12/19 Date of admission: 10/12/19 Chief complaint: Seizure History of present illness: Patient is a 54-year-old male with history of hypertension, prior history of stroke, chronic alcohol use disorder, who presents to the hospital following a sudden loss of consciousness unwitnessed seizure at work. This was noted and documented the patient has some jerking movements of the extremities. On regaining consciousness patient does not recall the event and still cannot describe the events. It was also documented on patient verifies that his last alcohol was 24 hours ago he reports that he does drink alcohol daily and states that he drinks about 324 hours bottles daily. He denies any chest pain nausea vomiting at this time he does report bilateral finger weakness with decreased abduction or flexion of the fingers. He denies any nausea vomiting or diarrhea at this point. Imaging studies reviewed from the past shows that the patient has temporal encephalomalacia from prior stroke. He states that he is compliant to aspirin and statin. Past History Past Medical History: hypertension, hyperlipidemia, stroke Past Surgical History: No surgical history Social history: lives with family, smoking, alcohol abuse Family history: no significant family history Medications and Allergies Allergies Allergy/AdvReac Type Severity Reaction Status Date / Time No Known Allergies Allergy Verified 08/19/19 17:51 Home Medications Medication Instructions Recorded Confirmed Last Taken Type Lisinopril [Zestril TAB] 20 mg PO QDAY #30 tablet 03/27/18 10/12/19 Unknown Rx Naproxen [Naprosyn] 500 mg PO Q12H PRN #20 tablet 08/10/19 10/12/19 Unknown Rx Aspirin [Aspirin BABY CHEW TAB] 81 mg PO QDAY #30 tab.chew 08/22/19 10/12/19 Unknown Rx AtorvaSTATin [Lipitor] 40 mg PO QHS #30 tablet 08/22/19 10/12/19 Unknown Rx Multivitamin with Folic Acid [[facility] 400 mcg PO QDAY #30 tablet 10/11/19 Unknown Rx One Daily Essential Tablet] chlordiazePOXIDE [Librium] 25 mg PO Q6H PRN #25 capsule 10/11/19 Unknown Rx Active Meds: Active Medications Acetaminophen (Tylenol) 650 mg PO Q4H PRN PRN Reason: Pain MILD(1-3)/Fever >100.5/GALLARDO Albuterol (Proventil) 2.5 mg IH Q3HRT PRN PRN Reason: Shortness Of Breath Chlordiazepoxide HCl (Librium) 50 mg PO Q1HR PRN PRN Reason: CIWA-Ar 8-15 Last Admin: 10/11/19 20:18 Dose: 50 mg Documented by: Chlordiazepoxide HCl (Librium) 100 mg PO Q1HR PRN PRN Reason: CIWA-Ar 16-25 Dextrose/Sodium Chloride (D5/0.45ns) 1,000 mls @ 0 mls/hr IV DIRECT JOSE CARLOS Last Admin: 10/11/19 20:11 Dose: 999 mls/hr Documented by: Ondansetron HCl (Zofran) 4 mg IV Q8H PRN PRN Reason: Nausea And Vomiting Sodium Chloride (Sodium Chloride Flush Syringe 10 Ml) 10 ml IV BID JOSE CARLOS Sodium Chloride (Sodium Chloride Flush Syringe 10 Ml) 10 ml IV PRN PRN PRN Reason: LINE FLUSH Review of Systems All systems: negative Neurological: paralysis, weakness, parathesias, numbness, sensory deficit Exam - Constitutional Vitals: Temp Pulse Resp BP Pulse Ox 98.1 F 84 15 151/88 99 10/12/19 06:54 10/12/19 07:45 10/12/19 07:46 10/12/19 07:45 10/12/19 07:46 General appearance: Present: mild distress (Still confused intermittently), well-nourished - EENT Eyes: Present: PERRL - Neck Neck: Present: supple, normal ROM - Respiratory Respiratory effort: normal Respiratory: bilateral: CTA - Cardiovascular Rhythm: regular Heart Sounds: Present: S1 & S2. Absent: systolic murmur, diastolic murmur - Extremities Extremities: no ischemia, pulses intact, pulses symmetrical, No edema, normal temperature, Full ROM Peripheral Pulses: within normal limits - Abdominal General gastrointestinal: Present: soft, non-tender, non-distended, normal bowel sounds - Integumentary Integumentary: Present: warm - Musculoskeletal Musculoskeletal: strength equal bilaterally, right sided weakness - Psychiatric Psychiatric: appropriate mood/affect, intact judgment & insight - Neurologic Neurologic: CNII-XII intact, focal deficits (Deficit and flexion of fingers.), moves all extremities - Allied Health Allied health notes reviewed: nursing Results - Labs CBC & Chem 7: 10/11/19 17:58 10/11/19 17:58 Labs: Laboratory Last Values WBC 4.3 K/mm3 (4.5-11.0) L 10/11/19 17:58 RBC 4.88 M/mm3 (3.65-5.03) 10/11/19 17:58 Hgb 14.4 gm/dl (11.8-15.2) 10/11/19 17:58 Hct 43.2 % (35.5-45.6) 10/11/19 17:58 MCV 89 fl (84-94) 10/11/19 17:58 MCH 30 pg (28-32) 10/11/19 17:58 MCHC 33 % (32-34) 10/11/19 17:58 RDW 14.3 % (13.2-15.2) 10/11/19 17:58 Plt Count 186 K/mm3 (140-440) 10/11/19 17:58 Sodium 138 mmol/L (137-145) 10/11/19 17:58 Potassium 3.5 mmol/L (3.6-5.0) L 10/11/19 17:58 Chloride 99.6 mmol/L (98-107) 10/11/19 17:58 Carbon Dioxide 21 mmol/L (22-30) L 10/11/19 17:58 Anion Gap 21 mmol/L 10/11/19 17:58 BUN 14 mg/dL (9-20) 10/11/19 17:58 Creatinine 0.6 mg/dL (0.8-1.5) L 10/11/19 17:58 Estimated GFR > 60 ml/min 10/11/19 17:58 BUN/Creatinine Ratio 23 % 10/11/19 17:58 Glucose 110 mg/dL (75-100) H 10/11/19 17:58 Calcium 10.1 mg/dL (8.4-10.2) 10/11/19 17:58 Magnesium 1.90 mg/dL (1.7-2.3) 10/11/19 17:58 Total Creatine Kinase 2258 units/L (55-170) H 10/12/19 03:58 Salicylates < 0.3 mg/dL (2.8-20.0) L 10/11/19 17:58 Acetaminophen < 5.0 ug/mL (10.0-30.0) L 10/11/19 18:04 Plasma/Serum Alcohol < 0.01 % (0-0.07) 10/11/19 17:58 Assessment and Plan Assessment and plan: Patient is a 54-year-old male with history of hypertension, prior history of stroke, chronic alcohol use disorder, who presents to the hospital following a sudden loss of consciousness unwitnessed seizure at work. This was noted and documented the patient has some jerking movements of the extremities. On regaining consciousness patient does not recall the event and still cannot describe the events. It was also documented on patient verifies that his last alcohol was 24 hours ago he reports that he does drink alcohol daily and states that he drinks about 324 hours bottles daily. He denies any chest pain nausea vomiting at this time he does report bilateral finger weakness with decreased abduction or flexion of the fingers. He denies any nausea vomiting or diarrhea at this point. Imaging studies reviewed from the past shows that the patient has temporal encephalomalacia from prior stroke. He states that he is compliant to aspirin and statin. Seizure disorder presumed ETOH withdrawal seizure Hypokalemia Rhabdomylysis Hx of CVA DJD Cervical Disc Protusion per hx ETOH USE DISORDER HTN Temporal encephalomalacia from prior stroke Plan Admit to Medicine [facility] protocol Seizure precaution Neurochecks Neurology consult considering hx of prior seizure. Defer imaging need to Neurology Banana Bag Ativan PRN Hold initiating AED till Neurology eval No driving or operating mechanized or motorized equipment till seen by Outside Neurologist following discharge [place] Restart appropriate home meds Advance Directives: Yes Plan of care discussed with patient/family: Yes
[2019-10-12] MEDS ORDERED: THIAMINE 100 MG, FOLIC ACID 1 MG, MULTIPLE VITAMIN INJ, ADULT 10 ML in SODIUM CHLORIDE ... IV ONE (08:30)
[2019-10-12] MEDS ORDERED: SODIUM CHLORIDE 0.9% 1000 ML 1,000 ML IV SCH (09:00)
[2019-10-12 09:04] LABS: Albumin 4.4 g/dL (3.9-5); Bilirubin,Direct 0.2 mg/dL (0-0.2)
--- NOTE | 2019-10-12 12:21 | Consultation ---
Medications and Allergies Allergies Allergy/AdvReac Type Severity Reaction Status Date / Time No Known Allergies Allergy Verified 08/19/19 17:51 Home Medications Medication Instructions Recorded Confirmed Last Taken Type Lisinopril [Zestril TAB] 20 mg PO QDAY #30 tablet 03/27/18 10/12/19 Unknown Rx Naproxen [Naprosyn] 500 mg PO Q12H PRN #20 tablet 08/10/19 10/12/19 Unknown Rx Aspirin [Aspirin BABY CHEW TAB] 81 mg PO QDAY #30 tab.chew 08/22/19 10/12/19 Unknown Rx AtorvaSTATin [Lipitor] 40 mg PO QHS #30 tablet 08/22/19 10/12/19 Unknown Rx Multivitamin with Folic Acid [[facility] 400 mcg PO QDAY #30 tablet 10/11/19 Unknown Rx One Daily Essential Tablet] chlordiazePOXIDE [Librium] 25 mg PO Q6H PRN #25 capsule 10/11/19 Unknown Rx Active Meds: Active Medications Acetaminophen (Tylenol) 650 mg PO Q4H PRN PRN Reason: Pain MILD(1-3)/Fever >100.5/GALLARDO Albuterol (Proventil) 2.5 mg IH Q3HRT PRN PRN Reason: Shortness Of Breath Aspirin (Baby Aspirin) 81 mg PO QDAY JOSE CARLOS Atorvastatin Calcium (Lipitor) 40 mg PO QHS JOSE CARLOS Chlordiazepoxide HCl (Librium) 50 mg PO Q1HR PRN PRN Reason: CIWA-Ar 8-15 Last Admin: 10/11/19 20:18 Dose: 50 mg Documented by: Chlordiazepoxide HCl (Librium) 100 mg PO Q1HR PRN PRN Reason: CIWA-Ar 16-25 Thiamine HCl 100 mg/ Folic Acid 1 mg/ Multivitamins/Minerals 10 ml/ Sodium Chloride 1,011.2 mls @ 250 mls/hr IV ONCE ONE Stop: 10/12/19 12:32 Last Admin: 10/12/19 08:52 Dose: 250 mls/hr Documented by: Sodium Chloride (Nacl 0.9% 1000 Ml) 1,000 mls @ 0 mls/hr IV ONCE JOSE CARLOS Stop: 10/13/19 09:01 Sodium Chloride (Nacl 0.9% 1000 Ml) 1,000 mls @ 150 mls/hr IV DIRECT JOSE CARLOS Lisinopril (Zestril) 20 mg PO QDAY JOSE CARLOS Lorazepam (Ativan) 2 mg IV Q1H PRN PRN Reason: CIWA-Ar 8-15 Ondansetron HCl (Zofran) 4 mg IV Q8H PRN PRN Reason: Nausea And Vomiting Sodium Chloride (Sodium Chloride Flush Syringe 10 Ml) 10 ml IV BID JOSE CARLOS Sodium Chloride (Sodium Chloride Flush Syringe 10 Ml) 10 ml IV PRN PRN PRN Reason: LINE FLUSH Physical Examination - Vital Signs Vital Signs: Vital Signs Temp Pulse Resp BP Pulse Ox 97.6 F 88 16 167/102 95 10/11/19 16:40 10/11/19 16:40 10/11/19 16:40 10/11/19 16:40 10/11/19 16:40 Results - Laboratory Findings CBC and BMP: 10/11/19 17:58 10/11/19 17:58 Abnormal Lab Findings: Abnormal Labs 10/11/19 10/11/19 10/11/19 17:58 17:58 17:58 WBC 4.3 L Potassium 3.5 L Carbon Dioxide 21 L Creatinine 0.6 L Glucose 110 H AST Total Creatine Kinase 1701 H Salicylates < 0.3 L Acetaminophen 10/11/19 10/11/19 10/12/19 18:04 21:39 03:58 WBC Potassium Carbon Dioxide Creatinine Glucose AST Total Creatine Kinase 1837 H 2258 H Salicylates Acetaminophen < 5.0 L 10/12/19 10/12/19 08:18 08:18 WBC Potassium Carbon Dioxide Creatinine Glucose AST 69 H Total Creatine Kinase 2176 H Salicylates Acetaminophen Assessment and Plan 54 YEAR OLD MALE WITH HISTORY OF HYPERTENSION,STROKE( right temporal infarct with encephalomalacia),CHRONIC ALCOHOL INTAKE WHO WAS BROUGHT FROM HIS WORK STRAIGHT TO THE HOSPITAL BECAUSE HE HAD A SUDDEN LOSS OF CONSCIOUSNESS WITNESSED BY HIS NEPHEW WHO WORKS IN THE SAME PLACE.PATIENT HAD ANY JERKING OF EXTREMITIES OR NOT IS NOT KNOWN.HE DEVELOPED PROLONGED POST ICTAL SOMNOLENCE AND ON WAKING UP EXPERIENCED HEADACHE WHICH HAS SINCE BEEN RESOLVED.PATIENT STATES THAT HIS LAST ALCOHOLIC DRINK WAS 24 HR PRIOR TO THIS. EVEN. 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 PHYSICAL EXAMINATION. GENERAL. IN NO ACUTE DISTRESS,PATIENT IS ALERT AND APPROPRIATE, HAS INSIGHT INTO HIS CONDITION AND ANSWERS QUESTIONS APPROPRIATELY. HEART-NORMAL RATE AND RHYTHM. CAROTIDS- BOTH PALPABLE CRANIAL NERVES- ALL CRANIAL NERVES ARE WITH IN NORMAL LIMIT MOTOR- NORMAL STRENGTH IN ALL FOUR EXTREMITIES WITH OUT ANY ASYMMETRY OF STRENGTH. COORDINATION- NORMAL. REFLEXES- SLIGHTLY HYPOREFLEXIA BILATERALLY WITHOUT ANY ASYMMETRY. WITH BILATERAL DOWN GOING TOES. SENSORY- GROSSLY WITH IN NORMAL LIMIT IMPRESSION. 1. ALCOHOL WITHDRAWAL SEIZURE IN A BACK GROUND OF RT TEMPORAL ENCEPHALOMALACIA WHICH CAN ACT A SEIZURE FOCUS RECOMMEND. 1. PLEASE START HIM ON KEPPRA 500MG PO BID. ALTHOUGH ALCOHOL WITHDRAWAL SEIZURE DOES NOT NEED ANTI CONVULSANT. HOWEVER HE WILL NEED TO BE ON SEIZURE MEDICATION HIS RT TEMPORAL ENCEPHALOMALACIA CAN ACT A SEZIURE FOCUS INDEPENDENT OF ALCOHOL. 2. THIAMINE 100MG PO QD ALONG WITH MULTIVITAMIN 3. PATIENT WAS INTENSELY COUNSELED BY ME TO QUIT ALCOHOL,HE SEEMED TO BE MOTIVATED AND AGREED TO QUIT DRINKING ALTOGETHER. 4. WILL NEED NEUROLOGY FOLLOW UP OUT PATIENT.
[2019-10-12] MEDS: LISINOPRIL 20 MG TAB PO SCH (13:03)
[2019-10-12] MEDS: ASPIRIN 81 MG TAB CHEW PO SCH (13:03)
[2019-10-12] MEDS: SODIUM CHLORIDE 0.9% 1000 ML 1,000 ML IV SCH ×2 (15:21→22:44)
[2019-10-12] MEDS: levETIRAcetam 500 MG TAB PO SCH (22:42)
[2019-10-13] MEDS: SODIUM CHLORIDE 0.9% 1000 ML 1,000 ML IV SCH (05:47)
[2019-10-13] MEDS: levETIRAcetam 500 MG TAB PO SCH (09:05)
[2019-10-13] MEDS: LISINOPRIL 20 MG TAB PO SCH (09:05)
[2019-10-13] MEDS: ASPIRIN 81 MG TAB CHEW PO SCH (09:05)
[2019-10-13 10:23] LABS: Eosinophils # (Auto) 0.1 K/mm3 (0.0-0.4); Eosinophils % (Auto) 3.6 % (0.0-4.3); Hematocrit 40.8 % (35.5-45.6); Hemoglobin 13.6 gm/dl (11.8-15.2); Lymphocytes # (Auto) 1.3 K/mm3 (1.2-5.4); Lymphocytes % (Auto) 37.1 % (13.4-35.0); Mean Corpuscular HGB Conc 33 % (32-34); Mean Corpuscular Volume 89 fl (84-94); Monocytes # (Auto) 0.4 K/mm3 (0.0-0.8); Monocytes % (Auto) 12.6 % (0.0-7.3); Platelet Count 173 K/mm3 (140-440); Red Blood Count 4.57 M/mm3 (3.65-5.03); Red Cell Distribution Width 14.6 % (13.2-15.2)
[2019-10-13 10:39] LABS: Alanine Aminotransferase 30 units/L (7-56); Albumin 3.9 g/dL (3.9-5); BUN/Creatinine Ratio 13; Blood Urea Nitrogen 8 mg/dL (9-20); Calcium 8.9 mg/dL (8.4-10.2); Hemolysis Index 9
--- NOTE | 2019-10-13 11:03 | Discharge Summary ---
Providers - Providers Date of Admission: 10/12/19 06:29 Attending physician: DEEDEE MCCORMICK MD 10/12/19 08:00 Consult to Physician [CONS] Routine Comment: Consulting Provider: DEON TRACEY Physician Instructions: Reason For Exam: seizure Primary care physician: SPECIAL SERVICE OFFICER Hospitalization Reason for admission: SEIZURE Condition: Stable Hospital course: Patient is a 54-year-old male with history of hypertension, prior history of stroke, chronic alcohol use disorder, who presents to the hospital following a sudden loss of consciousness unwitnessed seizure at work. This was noted and documented the patient has some jerking movements of the extremities. On regaining consciousness patient does not recall the event and still cannot describe the events. It was also documented on patient verifies that his last alcohol was 24 hours ago he reports that he does drink alcohol daily and states that he drinks about 324 hours bottles daily. He denies any chest pain nausea vomiting at this time he does report bilateral finger weakness with decreased abduction or flexion of the fingers. He denies any nausea vomiting or diarrhea at this point. Imaging studies reviewed from the past shows that the patient has temporal encephalomalacia from prior stroke. He states that he is compliant to aspirin and statin. Patient was seen by neurology and recommneded pLEASE START HIM ON KEPPRA 500MG PO BID. ALTHOUGH ALCOHOL WITHDRAWAL SEIZURE DOES NOT NEED ANTI CONVULSANT. HOWEVER HE WILL NEED TO BE ON SEIZURE MEDICATION HIS RT TEMPORAL ENCEPHALOMALACIA CAN ACT A SEZIURE FOCUS INDEPENDENT OF ALCOHOL. 2. THIAMINE 100MG PO QD ALONG WITH MULTIVITAMIN 3. PATIENT WAS INTENSELY COUNSELED BY ME TO QUIT ALCOHOL,HE SEEMED TO BE MOTIVATED AND AGREED TO QUIT DRINKING ALTOGETHER. 4. WILL NEED NEUROLOGY FOLLOW UP OUT PATIENT. The recommendations were made, and discussed with the patient and he was discharged with the follow ups noted. Seizure disorder presumed ETOH withdrawal seizure ALCOHOL WITHDRAWAL SEIZURE IN A BACK GROUND OF RT TEMPORAL ENCEPHALOMALACIA WHICH CAN ACT A SEIZURE FOCUS Hypokalemia Rhabdomylysis Hx of CVA DJD Cervical Disc Protusion per hx ETOH USE DISORDER HTN Temporal encephalomalacia from prior stroke Disposition: -01 TO HOME OR SELFCARE Time spent for discharge: 35 mins Core Measure Documentation - Palliative Care Palliative Care/ Comfort Measures: Not Applicable - Core Measures Any of the following diagnoses?: none Exam - Physical Exam Narrative exam: General appearance: Present: Improved mentation well-nourished - EENT Eyes: Present: PERRL - Neck Neck: Present: supple, normal ROM - Respiratory Respiratory effort: normal Respiratory: bilateral: CTA - Cardiovascular Rhythm: regular Heart Sounds: Present: S1 & S2. Absent: systolic murmur, diastolic murmur - Extremities Extremities: no ischemia, pulses intact, pulses symmetrical, No edema, normal temperature, Full ROM Peripheral Pulses: within normal limits - Abdominal General gastrointestinal: Present: soft, non-tender, non-distended, normal bowel sounds - Integumentary Integumentary: Present: warm - Musculoskeletal Musculoskeletal: strength equal bilaterally, right sided weakness - Psychiatric Psychiatric: appropriate mood/affect, intact judgment & insight - Neurologic Neurologic: CNII-XII intact, focal deficits (Deficit and flexion of fingers.), moves all extremities - Allied Health Allied health notes reviewed: nursing - Constitutional Vitals: Temp Pulse Resp BP Pulse Ox 98.4 F 71 18 151/84 96 10/13/19 04:20 10/13/19 04:20 10/13/19 04:20 10/13/19 09:05 10/13/19 07:48 Plan Activity: advance as tolerated, no driving until cleared by PCP, fall precautions Diet: low fat Special Instructions: smoking cessation, follow up in rehab ([facility]) Follow up with: [facility] [Provider Group] - 3-5 Days [facility] [Provider Group] - 3-5 Days CASSIDY PORTILLO MD [Staff Physician] - 3-5 Days MOSES VAUGHN MD [Referring] - 3-5 Days ABHISHEK PAYAN MD [Staff Physician] - 3-5 Days Prescriptions: Multivitamin with Folic Acid [Cvs One Daily Essential Tablet] 400 mcg PO QDAY #30 tablet levETIRAcetam [Keppra TAB] 500 mg PO BID #60 tablet
[2019-10-13 12:29] VITALS: BP 141/81
== END 2019-10-13 12:05 | disposition home or self-care (01) | DRG 101 ==
LOC: ED 16:04 → 3A 10-12 06:29
PROVIDERS: ADMIT Internal Medicine Geriatric Medicine; ATTEND Internal Medicine
DX: G40.509 Epileptic seizures related to external causes, not intractable, without status epilepticus (principal); M62.82 Rhabdomyolysis; I10 Essential (primary) hypertension; G93.89 Other specified disorders of brain; E87.6 Hypokalemia; M19.90 Unspecified osteoarthritis, unspecified site; Z79.82 Long term (current) use of aspirin; Z79.899 Other long term (current) drug therapy; Z86.73 Personal history of transient ischemic attack (TIA), and cerebral infarction without residual deficits
CPT/HCPCS: 36415; 70450; 80048; 80053; 80076; 80320; 82140; 82550; 83735; 85025; 85027; 93005; 93010; 96361; 96365; G0378; A9270-GY; G0480; J3411; J3480; J7030

== ENCOUNTER 2020-02-08 09:20 | Emergency (ER) | payer SELFPAY ==
[2020-02-08 10:31] VITALS: BP 142/94
[2020-02-08] MEDS ORDERED: HYDROcodone/ACETAMINOPHEN 5-325 MG TAB PO ONE (12:22)
--- NOTE | 2020-02-08 12:56 | XRay Report ---
RIGHT ELBOW HISTORY: Trauma and pain. COMPARISON: None. TECHNIQUE: 3 views of the right elbow obtained. FINDINGS: Bones: No fracture or dislocation. A prominent triceps insertion enthesophyte. Joint spaces: Maintained. However, there is evidence of a elbow joint effusion with abnormal anterior and posterior fat pads. Soft tissues: Mild to moderate soft tissue swelling. No soft tissue air or foreign body. Additional findings: None. IMPRESSION: 1. No bony injury. 2. Joint effusion. 3. Triceps insertion enthesopathy. Signer Name: Dmitri Gill MD Signed: 02/08/2020 12:52 PM Workstation Name: [id number]
--- NOTE | 2020-02-08 13:22 | Emergency Department Report ---
Upper Extremity - HPI Chief Complaint: Extremity Injury, Upper Stated Complaint: ARM/ELBOW Time Seen by Provider: 02/08/20 11:56 Other History: Pt is a 54 yo male who presents to the ED with c/o right elbow injury that occurred yesterday. He states he accidentally slipped and fell and landed directly on his elbow. He has associated pain and edema and pain with movement. He denies any numbness or weakness. he denies injurying in the past. PMHx seizure. he states he has not taken his medication in 5 days. no allergies to meds. he takes keppra 500 mg BID. ED Review of Systems ROS: Stated complaint: ARM/ELBOW Other details as noted in HPI Comment: All other systems reviewed and negative ED Past Medical Hx - Past Medical History Previous Medical History?: Yes Hx Hypertension: Yes Hx Congestive Heart Failure: No Hx Diabetes: No Hx Seizures: Yes Hx Asthma: No Hx COPD: No Additional medical history: left ankle fracture - Surgical History Past Surgical History?: No - Social History Smoking Status: Unknown if ever smoked Substance Use Type: None - Medications Home Medications: Home Medications Medication Instructions Recorded Confirmed Last Taken Type lisinopriL [Zestril TAB] 20 mg PO QDAY #30 tablet 03/27/18 10/12/19 Unknown Rx Aspirin [Aspirin BABY CHEW TAB] 81 mg PO QDAY #30 tab.chew 08/22/19 10/12/19 Unknown Rx AtorvaSTATin [Lipitor] 40 mg PO QHS #30 tablet 08/22/19 10/12/19 Unknown Rx Multivitamin with Folic Acid [[facility] 400 mcg PO QDAY #30 tablet 10/11/19 Unknown Rx One Daily Essential Tablet] levETIRAcetam [Keppra TAB] 500 mg PO BID #60 tablet 10/13/19 Unknown Rx HYDROcodone/APAP 5-325 [Dubois 1 each PO Q6HR PRN #12 tablet 02/08/20 Unknown Rx 5/325] levETIRAcetam [Keppra TAB] 500 mg PO BID 60 Days #120 tablet 02/08/20 Unknown Rx Upper Extremity Exam - Exam General: Vital signs noted. No distress. Alert and acting appropriately. Shoulder Exam: Yes Normal Range of Motion in Shoulder, No Shoulder Tenderness, No Clavicle Tenderness, No Shoulder Deformity, No AC Joint Tenderness Arm Exam: No Arm/Humerus Tenderness, No Arm Deformity Elbow: Yes Elbow Tenderness (posterior and lateral bony elbow ttp, moderate edema present to the left elbow), No Normal Range of Motion in Elbow (decreased ROM secondary to pain) Wrist: Yes Normal ROM in Wrist, No Wrist Tenderness, No Wrist Deformity, No Snuffbox Tenderness, No Pain with Axial Thumb Compression Hand: Yes Hand Deformity (chronic deformity to the right hand), No Hand Tenderness, No Digit Tenderness CMS Exam: Yes Normal Distal Pulses, Yes Normal Capillary Refill, Yes Normal Distal Sensation, No Broken Skin ED Course Vital Signs 02/08/20 10:19 Temperature 98.1 F Pulse Rate 83 Respiratory 18 Rate Blood Pressure 142/94 O2 Sat by Pulse 100 Oximetry ED Medical Decision Making - Radiology Data Radiology results: report reviewed RIGHT ELBOW HISTORY: Trauma and pain. COMPARISON: None. TECHNIQUE: 3 views of the right elbow obtained. FINDINGS: Bones: No fracture or dislocation. A prominent triceps insertion enthesophyte. Joint spaces: Maintained. However, there is evidence of a elbow joint effusion with abnormal anterior and posterior fat pads. Soft tissues: Mild to moderate soft tissue swelling. No soft tissue air or foreign body. Additional findings: None. IMPRESSION: 1. No bony injury. 2. Joint effusion. 3. Triceps insertion enthesopathy. Signer Name: Dmitri Hernandez MD Signed: 02/08/2020 12:52 PM Workstation Name: [id number] Transcribed By: REF Dictated By: DMITRI HERNANDEZ MD Electronically Authenticated By: DMITRI HERNANDEZ MD Signed Date/Time: 02/08/20 1252 DD/ 1249 TD/TT: - Medical Decision Making Pt is a 54 yo male who presents to the ED with c/o right elbow injury that occurred yesterday. He states he accidentally slipped and fell and landed directly on his elbow. He has associated pain and edema and pain with movement. He denies any numbness or weakness. he denies injurying in the past. PMHx seizure. he states he has not taken his medication in 5 days. no allergies to meds. he takes keppra 500 mg BID. VSS. on exam: posterior and lateral bony elbow ttp, moderate edema present to the left elbow, decreased ROM secondary to pain, neurovascularly intact. there is no increased warmth or erythema to suggest gout or septic joint. XR right elbow: 1. No bony injury. 2. Joint effusion. 3. Triceps insertion enthesopathy. Bones: No fracture or dislocation. A prominent triceps insertion enthesophyte. Joint spaces: Maintained. However, there is evidence of a elbow joint effusion with abnormal anterior and posterior fat pads. Soft tissues: Mild to moderate soft tissue swelling. No soft tissue air or foreign body. Given x-ray findings concern for a possible fracture could be related to a right radial head fracture given that patient had a direct impact to the elbow. Patient placed in long-arm posterior splint. Patient's pain treated while in the emergency department as he did not drive. Patient given prescription for Dubois. Patient given refill of his seizure medications. Discussed all findings with patient and the importance of following up with a orthopedic doctor. advised pt to please take medication as prescribed. Do not drive or operate heavy machinery while taking pain medication. Please do not remove splint until you have been cleared by an orthopedic doctor. Please follow-up with orthopedic in the next 2 to 3 days. Return to the emergency room for any new or worsening symptoms. - Differential Diagnosis strain, sprain, fx, dislocation, effusion, bursitis, gout Critical care attestation.: If time is entered above; I have spent that time in minutes in the direct care of this critically ill patient, excluding procedure time. ED Disposition Clinical Impression: Suspected fracture of bone Injury of right elbow Qualifiers: Encounter type: initial encounter Qualified Code(s): S59.901A - Unspecified injury of right elbow, initial encounter Disposition: DC-01 TO HOME OR SELFCARE Is pt being admited?: No Does the pt Need Aspirin: No Condition: Stable Instructions: SUSPECTED FRACTURE (ED) Additional Instructions: Please take medication as prescribed. Do not drive or operate heavy machinery while taking pain medication. Please do not remove splint until you have been cleared by an orthopedic doctor. Please follow-up with orthopedic in the next 2 to 3 days. Return to the emergency room for any new or worsening symptoms. Prescriptions: levETIRAcetam [Keppra TAB] 500 mg PO BID 60 Days #120 tablet HYDROcodone/APAP 5-325 [Dubois 5/325] 1 each PO Q6HR PRN #12 tablet PRN Reason: Pain , Severe (7-10) Referrals: ANNAMARIA CUMMINGS MD [Staff Physician] - 2-3 Days [facility] [Provider Group] - 2-3 Days Time of Disposition: 13:23 Print Language: BELARUSIAN
== END 2020-02-08 13:58 | disposition home or self-care (01) ==
LOC: ED 09:20
DX: S59.901A Unspecified injury of right elbow, initial encounter (principal); I10 Essential (primary) hypertension; Z86.69 Personal history of other diseases of the nervous system and sense organs; Z79.899 Other long term (current) drug therapy; Z79.82 Long term (current) use of aspirin; W19.XXXA Unspecified fall, initial encounter; Y93.89 Activity, other specified; Y92.89 Other specified places as the place of occurrence of the external cause; Y99.8 Other external cause status
CPT/HCPCS: 99283

== ENCOUNTER 2020-07-16 17:43 | Observation (INO) | payer OTHER ==
[2020-07-16] MEDS ORDERED: LACTATED RINGERS 1,000 ML IV ONE ×2 (17:54→18:48)
[2020-07-16] MEDS ORDERED: levETIRAcetam 1000 MG/NS 0.75% 1,000 MG/100 ML BAG IV ONE (17:54)
[2020-07-16] MEDS ORDERED: LORazepam 2 MG/ML VIAL IV PRN ×3 (17:54)
--- NOTE | 2020-07-16 17:58 | Emergency Department Report ---
<ALISHA LOUISE - Last Filed: 07/16/20 20:13> ED General Adult HPI - General Chief complaint: Seizure Stated complaint: SEIZURE PUI?: No Time Seen by Provider: 07/16/20 17:51 Source: EMS (Verbal report received from emergency medical services. EMS documentation not available at time of chart dictation ), RN notes reviewed, old records reviewed Mode of arrival: Stretcher Limitations: Altered Mental Status, Physical Limitation - History of Present Illness Initial comments: Patient is a 55-year-old gentleman. I have evaluated him in the past. His past medical history includes hypertension, stroke (right temporal infarct with history of encephalomalacia), chronic alcohol intake, history of elevated creatinine kinase. In the past, he has been seen by myself and neurology. Neurology has recom mended in the past that he likely has alcohol withdrawal seizure in the background of right temporal encephalomalacia, which can act as a seizure focus. Keppra therapy was recommended, in addition to thiamine. In addition, alcohol cessation was discussed with the patient. Today, the patient is brought to the hospital by emergency medical services with a complaint of nontraumatic seizures. He was reportedly found in the car, with convulsive activity. EMS gave Ativan in the field, which terminated his convulsions. In the emergency room, patient postictal, breathing spontaneously, moving 4 extremities. He is not accompanied by friends or family, he can therefore not describe the qualitative nature of his symptoms, exacerbating, relieving factors. EMS verbally reported normal Accu-Chek, and normal vital signs in the field. His only abnormality was mild hypoxia post seizure/postictal. This was corrected with supplemental oxygen. At the moment, patient resting comfortably in his stretcher, in no acute distress. -: Sudden, minutes(s) Consistency: now resolved Improves with: medication (Given Ativan by EMS which terminated convulse) - Related Data Previous Rx's Medication Instructions Recorded Last Taken Type lisinopriL [Zestril TAB] 20 mg PO QDAY #30 tablet 03/27/18 Unknown Rx levETIRAcetam [Keppra TAB] 500 mg PO BID 60 Days #120 tablet 02/08/20 Unknown Rx Aspirin [Aspirin BABY CHEW TAB] 81 mg PO QDAY #30 tab.chew 07/16/20 Unknown Rx AtorvaSTATin [Lipitor] 40 mg PO QHS #30 tablet 07/16/20 Unknown Rx Magnesium Oxide 400 mg PO QDAY #30 tablet 07/16/20 Unknown Rx Multivitamin with Folic Acid [[facility]vs 400 mcg PO QDAY #30 tablet 07/16/20 Unknown Rx One Daily Essential Tablet] levETIRAcetam [Keppra TAB] 500 mg PO BID #60 tablet 07/16/20 Unknown Rx Allergies Allergy/AdvReac Type Severity Reaction Status Date / Time No Known Allergies Allergy Verified 08/19/19 17:51 ED Review of Systems Comment: Unobtainable due to pts medical conditions ED Past Medical Hx - Past Medical History Hx Hypertension: Yes Hx Congestive Heart Failure: No Hx Diabetes: No Hx Seizures: Yes Hx Asthma: No Hx COPD: No Additional medical history: left ankle fracture - Social History Smoking Status: Unknown if ever smoked Substance Use Type: None - Medications Home Medications: Home Medications Medication Instructions Recorded Confirmed Last Taken Type lisinopriL [Zestril TAB] 20 mg PO QDAY #30 tablet 03/27/18 10/12/19 Unknown Rx levETIRAcetam [Keppra TAB] 500 mg PO BID 60 Days #120 tablet 02/08/20 Unknown Rx Aspirin [Aspirin BABY CHEW TAB] 81 mg PO QDAY #30 tab.chew 07/16/20 Unknown Rx AtorvaSTATin [Lipitor] 40 mg PO QHS #30 tablet 07/16/20 Unknown Rx Magnesium Oxide 400 mg PO QDAY #30 tablet 07/16/20 Unknown Rx Multivitamin with Folic Acid [[facility]vs 400 mcg PO QDAY #30 tablet 07/16/20 Unknown Rx One Daily Essential Tablet] levETIRAcetam [Keppra TAB] 500 mg PO BID #60 tablet 07/16/20 Unknown Rx ED Physical Exam - General Limitations: Altered Mental Status General appearance: in no apparent distress, lethargic - Head Head exam: Present: atraumatic, normocephalic - Eye Eye exam: Present: normal appearance, PERRL - ENT ENT exam: Present: normal exam, normal orophraynx, mucous membranes moist, norm al external ear exam - Neck Neck exam: Present: normal inspection, full ROM. Absent: tenderness, meningismus - Respiratory Respiratory exam: Present: rhonchi. Absent: respiratory distress, wheezes, rales - Cardiovascular Cardiovascular Exam: Present: regular rate, normal rhythm, normal heart sounds. Absent: bradycardia, tachycardia, irregular rhythm, systolic murmur, diastolic murmur, rubs, gallop - GI/Abdominal GI/Abdominal exam: Present: soft, normal bowel sounds. Absent: distended, tenderness, guarding, rebound, rigid, pulsatile mass - Rectal Rectal exam: Present: normal inspection - exam: Present: normal inspection External exam: Present: normal external exam - Extremities Exam Extremities exam: Present: normal inspection, normal capillary refill, other (2+ pulses noted in the bilateral upper and lower extremities. There is no palpable cord. negative Homans sign. Muscular compartments are soft. The pelvis is stable.). Absent: calf tenderness - Back Exam Back exam: Present: normal inspection. Absent: tenderness, CVA tenderness (R), CVA tenderness (L), paraspinal tenderness, vertebral tenderness - Neurological Exam Neurological exam: Present: altered, other (Patient breathing spontaneously. Moving 4 extremities spontaneously. No obvious facial droop. Patient is postictal.) - Psychiatric Psychiatric exam: Present: other (Patient is nonverbal at this time) - Skin Skin exam: Present: warm, dry, intact, normal color. Absent: rash ED Course - Reevaluation(s) Reevaluation #1: 07/16/20 18:52 Differential diagnosis, including but not limited to: Seizure, alcohol withdrawal seizure, intracranial lesion, electrolyte derangement, pneumonia, urinary tract infection Assessment and plan: 55-year-old gentleman brought to the hospital by EMS with history of convulsions. Now sedated, postictal, breathing spontaneously, and in no acute distress. Suspect that patient likely had an alcohol withdrawal seizure. He may also have a component of underlying seizures secondary to prior infarct. He is maintained on seizure precautions, banana bag ordered, Keppra ordered, IV fluids ordered, magnesium ordered. Initial laboratory studies reviewed and appreciated, anion gap acidosis is likely secondary to initial convulsive event. Repeat basic metabolic panel, creatinine ordered. Urinalysis is pending at this time. X-ray the chest unremarkable, noncontrast CT scan of the brain is pending interpretation at this time Reevaluation #2: 07/16/20 19:47 Patient resting comfortably and in no acute distress. No further convulsive activity noted. Urinalysis pending. CT scan of the brain negative for acute findings. Care will be transferred to the oncoming ER physician, Dr. Gavin Kelly, to follow-up on urinalysis, repeat basic metabolic panel, repeat creatinine kinase, for final evaluation. Anticipate discharge of laboratory studies normalized or improved, and patient has return of normal mentation. ED Medical Decision Making - Lab Data Result diagrams: 07/16/20 17:59 07/16/20 17:59 Vital Signs 07/16/20 17:52 Temperature 97.7 F Pulse Rate 88 Respiratory 24 Rate Blood Pressure 113/66 O2 Sat by Pulse 96 Oximetry Lab Results 07/16/20 07/16/20 07/16/20 Range/Units 17:59 17:59 17:59 Hgb 13.8 (11.8-15.2) gm/dl Hct 41.5 (35.5-45.6) % Plt Count 225 (140-440) K/mm3 Sodium 137 (137-145) mmol/L Potassium 3.6 (3.6-5.0) mmol/L Chloride 94.7 L (98-107) mmol/L Carbon Dioxide 19 L (22-30) mmol/L Anion Gap 27 mmol/L BUN 9 (9-20) mg/dL Creatinine 0.9 (0.8-1.3) mg/dL Estimated GFR > 60 ml/min BUN/Creatinine Ratio 10 % Glucose 223 H (75-100) mg/dL Calcium 9.1 (8.4-10.2) mg/dL Magnesium 1.60 L (1.7-2.3) mg/dL Total Bilirubin 0.50 (0.1-1.2) mg/dL AST 83 H (5-40) units/L ALT 47 (7-56) units/L Alkaline Phosphatase 94 (35-129) units/L Total Creatine Kinase 1436 H (55-170) units/L Total Protein 8.4 H (6.3-8.2) g/dL Albumin 4.7 (3.9-5) g/dL Albumin/Globulin Ratio 1.3 % Salicylates < 0.3 L (2.8-20.0) mg/dL Acetaminophen (10.0-30.0) ug/mL Plasma/Serum Alcohol (0-0.07) % 07/16/20 07/16/20 Range/Units 17:59 17:59 Hgb (11.8-15.2) gm/dl Hct (35.5-45.6) % Plt Count (140-440) K/mm3 Sodium (137-145) mmol/L Potassium (3.6-5.0) mmol/L Chloride (98-107) mmol/L Carbon Dioxide (22-30) mmol/L Anion Gap mmol/L BUN (9-20) mg/dL Creatinine (0.8-1.3) mg/dL Estimated GFR ml/min BUN/Creatinine Ratio % Glucose (75-100) mg/dL Calcium (8.4-10.2) mg/dL Magnesium (1.7-2.3) mg/dL Total Bilirubin (0.1-1.2) mg/dL AST (5-40) units/L ALT (7-56) units/L Alkaline Phosphatase (35-129) units/L Total Creatine Kinase (55-170) units/L Total Protein (6.3-8.2) g/dL Albumin (3.9-5) g/dL Albumin/Globulin Ratio % Salicylates (2.8-20.0) mg/dL Acetaminophen 5.0 L (10.0-30.0) ug/mL Plasma/Serum Alcohol < 0.01 (0-0.07) % - EKG Data -: EKG Interpreted by Al EKG shows normal: sinus rhythm Rate: normal - EKG Data When compared to previous EKG there are: no significant change 07/16/20 18:52 Unchanged from prior EKG. Sinus rhythm, 88 bpm, borderline leftward axis deviation, left ventricular hypertrophy, QTC is prolonged, borderline left anterior fascicular block. The EKG is not a STEMI. - Radiology Data Radiology results: pending, report reviewed, image reviewed Print Report Referring Physician: ALISHA LOUISE Patient Name: JEANNETTE MARSHALL Date of : 1965 Sex: Male Report Date: 2020-07-16 Report Status: Finalized Findings [facility] [address] [place] [address] XRay Report Signed Patient: JEANNETTE MARSHALL MR#: [id number] : 1965 Acct:[id number] Age/Sex: 55 / M ADM Date: 07/16/20 Loc: ED Attending Dr: Ordering Physician: ALISHA LOUISE MD Date of Service: 07/16/20 Procedure(s): XR chest 1V ap Accession Number(s): [id number] cc: ALISHA LOUISE MD Fluoro Time In Minutes: CHEST 1 VIEW 07/16/2020 5:23 PM INDICATION / CLINICAL INFORMATION: sz hx of hypoxia. COMPARISON: 03/26/18 FINDINGS: SUPPORT DEVICES: None. HEART / MEDIASTINUM: Stable. LUNGS / PLEURA: Suboptimal inspiration with low lung volumes and mild bibasilar atelectasis. No pneumothorax. ADDITIONAL FINDINGS: No significant additional findings. IMPRESSION: 1. Bibasilar atelectasis. Signer Name: Rosana Markham MD Signed: 07/16/2020 6:28 PM Workstation Name: [id number] Transcribed By: DT Dictated By: Fabien Markham MD Electronically Authenticated By: Fabien Markham MD Signed Date/Time: 07/16/[address] scan of the brain: Interpreted by myself, no acute findings. ED Disposition Clinical Impression: Seizure-like activity, Elevated CK, Hypomagnesemia, History of alcohol abuse Disposition: OP ADMIT IP TO THIS HOSP Is pt being admited?: No Does the pt Need Aspirin: No Condition: Stable Instructions: Abuse of Alcohol (ED), Recurrent Seizures Adult (ED) Additional Instructions: Do not drive or operate motor vehicles for the next 6 months, or until cleared to do so by a primary care doctor or neurologist. Avoid consumption of alcohol, Motrin, ibuprofen, Naprosyn, Aleve. Drink at least 4 cups of water per day indefinitely. Follow-up with a primary care doctor or neurologist within the next 5 to 7 days. Take the prescribed medications as needed and directed. Please return to the emergency room right away with new pain, worsened pain, migration of pain, projectile vomiting, change in mental status, confusion, and ability to tolerate liquid feeds, new, worsened or different symptoms not present on the initial emergency room, recurrent seizure/convulsion. Prescriptions: Aspirin [Aspirin BABY CHEW TAB] 81 mg PO QDAY #30 tab.chew Multivitamin with Folic Acid [Cvs One Daily Essential Tablet] 400 mcg PO QDAY #30 tablet levETIRAcetam [Keppra TAB] 500 mg PO BID #60 tablet AtorvaSTATin [Lipitor] 40 mg PO QHS #30 tablet Magnesium Oxide 400 mg PO QDAY #30 tablet Referrals: MOSES VAUGHN MD [Referring] - 3-5 Days CASSIDY PORTILLO MD [Staff Physician] - 3-5 Days ASHA MYERS MD [Staff Physician] - 3-5 Days <RAKESH KELLY - Last Filed: 07/17/20 04:49> ED Review of Systems ROS: Stated complaint: SEIZURE Other details as noted in HPI ED Course Vital Signs 07/16/20 07/16/20 07/17/20 17:52 23:12 01:00 Temperature 97.7 F Pulse Rate 88 68 Respiratory 24 16 26 H Rate Blood Pressure 113/66 175/95 O2 Sat by Pulse 96 Oximetry 07/17/20 07/17/20 07/17/20 02:00 03:00 04:00 Temperature Pulse Rate 62 60 78 Respiratory 26 H 22 20 Rate Blood Pressure 170/87 158/85 143/76 O2 Sat by Pulse 97 99 99 Oximetry - Reevaluation(s) Reevaluation #2: 07/16/20 21:15 Patient reevaluated. Patient is drowsy but able to answer questions. He is oriented to person, place, but states year 2014. Patient denies any pain. He just produce a urine sample. He states his been compliant with the Keppra. Patient still drinks alcohol daily and only does not drink when he does not have enough money for alcohol. Reevaluation #3: 07/16/20 21:40 pts ck level increased however he has not received all the ordered ivf. will repeat ED Medical Decision Making - Lab Data Result diagrams: 07/16/20 17:59 07/16/20 21:03 - Medical Decision Making Patient was signed out to me by Dr. Stephany Pedroza. Repeat BMP showed improved anion gap acidosis however, patient CK level has not trended significantly downward despite 2 L of lactated Ringer's, 2 L of normal saline, and 1 banana bag. Patient has not really had any additional seizure activity during ED stay and has normal renal function at this time. I am unable to clear patient for discharge at this time due to increasing CK level despite IV fluids therefore patient will be admitted to the hospital. Critical care attestation.: If time is entered above; I have spent that time in minutes in the direct care of this critically ill patient, excluding procedure time. ED Disposition Is pt being admited?: Yes Time of Disposition: 04:48
[2020-07-16 18:24] LABS: Hematocrit 41.5 % (35.5-45.6); Hemoglobin 13.8 gm/dl (11.8-15.2)
[2020-07-16] MEDS ORDERED: THIAMINE 100 MG, FOLIC ACID 1 MG, MULTIPLE VITAMIN INJ, ADULT 10 ML in SODIUM CHLORIDE ... IV ONE (18:30)
--- NOTE | 2020-07-16 18:32 | XRay Report ---
CHEST 1 VIEW 07/16/2020 5:23 PM INDICATION / CLINICAL INFORMATION: sz hx of hypoxia. COMPARISON: 03/26/18 FINDINGS: SUPPORT DEVICES: None. HEART / MEDIASTINUM: Stable. LUNGS / PLEURA: Suboptimal inspiration with low lung volumes and mild bibasilar atelectasis. No pneum othorax. ADDITIONAL FINDINGS: No significant additional findings. IMPRESSION: 1. Bibasilar atelectasis. Signer Name: Rosana Markham MD Signed: 07/16/2020 6:28 PM Workstation Name: [id number]
[2020-07-16 18:40] LABS: Alanine Aminotransferase 47 units/L (7-56); Albumin 4.7 g/dL (3.9-5); BUN/Creatinine Ratio 10; Blood Urea Nitrogen 9 mg/dL (9-20); Calcium 9.1 mg/dL (8.4-10.2); Hemolysis Index 3
[2020-07-16] MEDS ORDERED: MAGNESIUM SULFATE 2 GM/50 ML BAG IV ONE (18:48)
[2020-07-16 18:54] LABS: INR 1.1 (0.87-1.13)
--- NOTE | 2020-07-16 19:00 | Cat Scan Report ---
CT HEAD WITHOUT CONTRAST INDICATION / CLINICAL INFORMATION: Seizure. Altered mental status. TECHNIQUE: All CT scans at this location are performed using CT dose reduction for ALARA by means of automated e xposure control. COMPARISON: Head CT 10/11/2019 and MRI brain 08/20/2019 FINDINGS: HEMORRHAGE: No evidence of intracranial hemorrhage or extra-axial fluid collection. EXTRA-AXIAL SPACES: Cortical sulci and sylvian fissures are mildly enlarged reflecting a degree of pa renchymal volume loss which is greater than expected for the patient's age of 55 years. Basilar ciste rns have an unremarkable appearance. VENTRICULAR SYSTEM: The third and lateral ventricles are slightly enlarged reflecting presence of mil d parenchymal volume loss. CEREBRAL PARENCHYMA: Periventricular and deep white matter lucency is observed. This is probably seco ndary to microvascular ischemic change. There is no indication of recent infarction. Physiological ca lcifications demonstrated bilaterally involving globus pallidus. There is evidence of remote small de ep infarction near the junction between the globus pallidus and anterior limb of the internal capsule on the left. Encephalomalacia is demonstrated in the right superior temporal gyrus and temporal oper culum. Periventricular and deep white matter lucencies are likely a manifestation of microvascular is chemia. Similar findings were present on previous studies. MIDLINE SHIFT OR HERNIATION: There is no mass effect. CEREBELLUM / BRAINSTEM: Brainstem has an unremarkable appearance. Age related cerebellar atrophy is n oted. MIDLINE STRUCTURES:Pituitary gland has an unremarkable appearance. No abnormalities are seen in the p ineal region. INTRACRANIAL VESSELS:Calcified atherosclerotic plaque is present along the course of the cavernous se gments of both internal carotid arteries. ORBITS: visualized portions of the orbits have an unremarkable appearance. SOFT TISSUES of HEAD: No significant abnormality. CALVARIUM: Evaluation of bone windows reveals no abnormalities. PARANASAL SINUSES / MASTOID AIR CELLS: Paranasal sinuses are free from inflammatory mucosal disease. Mastoid air cells are normally pneumatized. IMPRESSION: 1. There is a mild degree of parenchymal volume loss which is greater than expected for age 55 years. 2. Remote small deep infarction left gangliocapsular region and remote cortical infarction in a right middle cerebral artery involving right temporal operculum. 3. No acute intracranial abnormality. Signer Name: Carlos Manuel Yancey MD Signed: 07/16/2020 6:56 PM Workstation Name: [id number]
[2020-07-16 21:38] LABS: Blood Urea Nitrogen 8 mg/dL (9-20); Calcium 9.1 mg/dL (8.4-10.2); Hemolysis Index 1
[2020-07-16 21:40] LABS: BUN/Creatinine Ratio 11
[2020-07-16] MEDS ORDERED: SODIUM CHLORIDE 0.9% 1000 ML 1,000 ML IV ONE (21:40)
[2020-07-16 22:23] LABS: Bilirubin,Urine NEG (Negative); Blood,Urine SM (Negative); Color,Urine Straw (Yellow); Protein,Urine <15 mg/dL mg/dL (Negative); Urobilinogen,Urine < 2.0 mg/dL (<2.0)
[2020-07-16] MEDS ORDERED: KETOROLAC 30 MG/1 ML INJ IV ONE (22:39)
[2020-07-16 22:42] LABS: Amphetamine Screen,Urine Negative; Benzodiazepines Screen,Urine Negative; Cannabinoid Screen,Urine Negative; Cocaine Screen,Urine Negative; Methadone Screen,Urine Negative; Opiate Screen,Urine Negative
[2020-07-17] MEDS ORDERED: SODIUM CHLORIDE 0.9% 1000 ML 1,000 ML IV ONE (02:14)
--- NOTE | 2020-07-17 16:48 | History and Physical Report ---
History of Present Illness Date of examination: 07/16/20 Date of admission: 07/17/20 04:48 Chief complaint: Seizures while resting in his car History of present illness: 55-year-old gentleman with past medical history of hypertension, stroke (right temporal infarct with history of encephalomalacia), chronic alcohol intake, history of elevated creatinine kinase brought to the hospital by emergency medical services with a complaint of seizures. He was reportedly found in the car, with convulsive activity. EMS gave Ativan in the field, which terminated his convulsions. In the emergency room, patient postictal, breathing spontaneously, moving 4 extremities. He is not accompanied by friends or family, he can therefore not describe the qualitative nature of his symptoms, exacerbating, relieving factors. EMS verbally reported normal Accu-Chek, and normal vital signs in the field. His only abnormality was mild hypoxia post seizure/postictal. This was natacha ected with supplemental oxygen. patient resting comfortably in his stretcher, in no acute distress. - Past Medical Histor Hypertension: Yes Seizures: Yes Left ankle fracture Surgical history unavailable - Social History Smoking Status: Unknown if ever smoked Substance Use Type: None family history unavailable - Medications Home Medications: Home Medications Medication Instructions Recorded Confirmed Last Taken Type lisinopriL [Zestril TAB] 20 mg PO QDAY #30 tablet 03/27/18 10/12/19 Unknown Rx levETIRAcetam [Keppra TAB] 500 mg PO BID 60 Days #120 tablet 02/08/20 Unknown Rx Aspirin [Aspirin BABY CHEW TAB] 81 mg PO QDAY #30 tab.chew 07/16/20 Unknown Rx AtorvaSTATin [Lipitor] 40 mg PO QHS #30 tablet 07/16/20 Unknown Rx Magnesium Oxide 400 mg PO QDAY #30 tablet 07/16/20 Unknown Rx Multivitamin with Folic Acid [[facility] 400 mcg PO QDAY #30 tablet 07/16/20 Unknown Rx One Daily Essential Tablet] levETIRAcetam [Keppra TAB] 500 mg PO BID #60 tablet 07/16/20 Unknown Rx Review of Systems Comment: Constitutional no weight loss or weight gain no fever or chills HEENT no sore throat no post nasal drip no diplopia Neck no neck stiffness no lymph gland enlargement Chest and lungs no shortness of breath cough or wheezing CVS no chest pain no diaphoresis no palpitations GI no nausea no vomiting no diarrhea Genitourinary system no dysuria no flank pain Musculoskeletal system no muscle pains no joint pains [employer] [place] seizures Skin no rash no itching Psychiatric no depression no homicidal or suicidal tendencies Hematologic no lymphedema or bruising Endocrine no polydipsia no polyuria no cold intolerance no heat intolerance Medications and Allergies Allergies Allergy/AdvReac Type Severity Reaction Status Date / Time No Known Allergies Allergy Verified 08/19/19 17:51 Home Medications Medication Instructions Recorded Confirmed Last Taken Type lisinopriL [Zestril TAB] 20 mg PO QDAY #30 tablet 03/27/18 10/12/19 Unknown Rx levETIRAcetam [Keppra TAB] 500 mg PO BID 60 Days #120 tablet 02/08/20 Unknown Rx Aspirin [Aspirin BABY CHEW TAB] 81 mg PO QDAY #30 tab.chew 07/16/20 Unknown Rx Magnesium Oxide 400 mg PO QDAY #30 tablet 07/16/20 Unknown Rx Multivitamin with Folic Acid [[facility] 400 mcg PO QDAY #30 tablet 07/16/20 Unknown Rx One Daily Essential Tablet] levETIRAcetam [Keppra TAB] 500 mg PO BID #60 tablet 07/16/20 Unknown Rx Active Meds: Active Medications Lorazepam (Ativan) 2 mg IV Q1HR PRN PRN Reason: CIWA-Ar 8-15 Lorazepam (Ativan) 4 mg IV Q1HR PRN PRN Reason: CIWA-Ar 16-25 Lorazepam (Ativan) 4 mg IV Q15MIN PRN PRN Reason: CIWA-Ar >25 Exam - Constitutional Vitals: Temp Pulse Resp BP Pulse Ox 98.5 F 64 20 161/88 95 07/17/20 08:30 07/17/20 08:30 07/17/20 08:30 07/17/20 08:30 07/17/20 08:30 General appearance: Present: no acute distress, well-nourished - EENT Eyes: Present: PERRL ENT: hearing intact, clear oral mucosa - Neck Neck: Present: supple, normal ROM - Respiratory Respiratory effort: normal Respiratory: bilateral: CTA - Cardiovascular Heart rate: 78 Rhythm: regular Heart Sounds: Present: S1 & S2. Absent: rub, click - Extremities Extremities: pulses symmetrical, No edema Peripheral Pulses: within normal limits - Abdominal General gastrointestinal: Present: soft, non-tender, non-distended, normal bowel sounds Male genitourinary: Present: normal - Integumentary Integumentary: Present: clear, warm, dry - Musculoskeletal Musculoskeletal: gait normal, strength equal bilaterally - Psychiatric Psychiatric: appropriate mood/affect, intact judgment & insight - Neurologic Neurologic: CNII-XII intact, moves all extremities - Allied Health Allied health notes reviewed: nursing, case management Results - Labs CBC & Chem 7: 07/16/20 17:59 07/16/20 21:03 Labs: Laboratory Last Values Hgb 13.8 gm/dl (11.8-15.2) 07/16/20 17:59 Hct 41.5 % (35.5-45.6) 07/16/20 17:59 Plt Count 225 K/mm3 (140-440) 07/16/20 17:59 PT 14.3 Sec. (12.2-14.9) 07/16/20 17:59 INR 1.10 (0.87-1.13) 07/16/20 17:59 Sodium 138 mmol/L (137-145) 07/16/20 21:03 Potassium 3.6 mmol/L (3.6-5.0) 07/16/20 21:03 Chloride 98.0 mmol/L (98-107) 07/16/20 21:03 Carbon Dioxide 23 mmol/L (22-30) 07/16/20 21:03 Anion Gap 21 mmol/L 07/16/20 21:03 BUN 8 mg/dL (9-20) L 07/16/20 21:03 Creatinine 0.7 mg/dL (0.8-1.3) L 07/16/20 21:03 Estimated GFR > 60 ml/min 07/16/20 21:03 BUN/Creatinine Ratio 11 % 07/16/20 21:03 Glucose 105 mg/dL (75-100) H 07/16/20 21:03 Calcium 9.1 mg/dL (8.4-10.2) 07/16/20 21:03 Magnesium 1.60 mg/dL (1.7-2.3) L 07/16/20 17:59 Total Bilirubin 0.50 mg/dL (0.1-1.2) 07/16/20 17:59 AST 83 units/L (5-40) H 07/16/20 17:59 ALT 47 units/L (7-56) 07/16/20 17:59 Alkaline Phosphatase 94 units/L (35-129) 07/16/20 17:59 Total Creatine Kinase 1810 units/L (55-170) H 07/17/20 03:51 Total Protein 8.4 g/dL (6.3-8.2) H 07/16/20 17:59 Albumin 4.7 g/dL (3.9-5) 07/16/20 17:59 Albumin/Globulin Ratio 1.3 % 07/16/20 17:59 Urine Color Straw (Yellow) 07/16/20 21:30 Urine Turbidity Clear (Clear) 07/16/20 21:30 Urine pH 8.0 (5.0-7.0) H 07/16/20 21:30 Ur Specific Grandin 1.008 (1.003-1.030) 07/16/20 21:30 Urine Protein <15 mg/dl mg/dL (Negative) 07/16/20 21:30 Urine Glucose (UA) Neg mg/dL (Negative) 07/16/20 21:30 Urine Ketones Neg mg/dL (Negative) 07/16/20 21:30 Urine Blood Sm (Negative) 07/16/20 21:30 Urine Nitrite Neg (Negative) 07/16/20 21:30 Urine Bilirubin Neg (Negative) 07/16/20 21:30 Urine Urobilinogen < 2.0 mg/dL (<2.0) 07/16/20 21:30 Ur Leukocyte Esterase Neg (Negative) 07/16/20 21:30 Urine WBC (Auto) 1.0 /HPF (0.0-6.0) 07/16/20 21:30 Urine RBC (Auto) 2.0 /HPF (0.0-6.0) 07/16/20 21:30 Salicylates < 0.3 mg/dL (2.8-20.0) L 07/16/20 17:59 Urine Opiates Screen Negative 07/16/20 21:30 Urine Methadone Screen Negative 07/16/20 21:30 Acetaminophen 5.0 ug/mL (10.0-30.0) L 07/16/20 17:59 Ur Barbiturates Screen Negative 07/16/20 21:30 Ur Phencyclidine Scrn Negative 07/16/20 21:30 Ur Amphetamines Screen Negative 07/16/20 21:30 U Benzodiazepines Scrn Negative 07/16/20 21:30 Urine Cocaine Screen Negative 07/16/20 21:30 U Marijuana (THC) Screen Negative 07/16/20 21:30 Drugs of Abuse Note Disclamer 07/16/20 21:30 Plasma/Serum Alcohol < 0.01 % (0-0.07) 07/16/20 17:59 Short CBC 07/16/20 Range/Units 17:59 Hgb 13.8 (11.8-15.2) gm/dl Hct 41.5 (35.5-45.6) % Plt Count 225 (140-440) K/mm3 BMP 07/16/20 07/16/20 17:59 21:03 Sodium 137 138 Potassium 3.6 3.6 Chloride 94.7 L 98.0 Carbon Dioxide 19 L 23 BUN 9 8 L Creatinine 0.9 0.7 L Glucose 223 H 105 H Calcium 9.1 9.1 Cardiac Enzymes 07/16/20 07/16/2018 Range/Units 17:59 21:03 00:34 Total Creatine Kinase 1436 H 1511 H 1447 H (55-170) units/L 07/17/20 Range/Units 03:51 Total Creatine Kinase 1810 H (55-170) units/L Liver Function 07/16/20 Range/Units 17:59 Total Bilirubin 0.50 (0.1-1.2) mg/dL AST 83 H (5-40) units/L ALT 47 (7-56) units/L Alkaline Phosphatase 94 (35-129) units/L Albumin 4.7 (3.9-5) g/dL Urine 07/16/20 Range/Units 21:30 Urine Color Straw (Yellow) Urine pH 8.0 H (5.0-7.0) Ur Specific Grandin 1.008 (1.003-1.030) Urine Protein <15 mg/dl (Negative) mg/dL Urine Glucose (UA) Neg (Negative) mg/dL - Imaging and Cardiology EKG: report reviewed Imaging and Cardiology: chest x-ray Bibasilar atelectasis head CT Mild degree of parenchymal volume loss which is greater than expected for age 55 years Remote small deep infarction left ganglial capsular region and remote cortical infarction in the right middle cerebral artery involving the right temporal operculum No acute intracranial abnormality White/IV: IV Catheter Type [Right Peripheral IV Forearm] IV Catheter Type [Left Forearm INT / Saline Lock ] Assessment and Plan Advance Directives: Yes VTE prophylaxis?: Chemical Plan of care discussed with patient/family: Yes - Patient Problems (1) Seizure disorder Status: Acute Plan to address problem: Patient on IV Keppra will change to oral Keppra (2) Rhabdomyolysis Status: Acute Qualifiers: Rhabdomyolysis type: non-traumatic Qualified Code(s): M62.82 - Rhabdomyolysis Plan to address problem: Nontraumatic secondary to seizures IV fluids and increase oral intake (3) Hypertension Status: Chronic Qualifiers: Hypertension type: essential hypertension Qualified Code(s): I10 - Es sential (primary) hypertension Plan to address problem: Continue antihypertensives (4) Hyperlipidemia Status: Chronic Qualifiers: Hyperlipidemia type: mixed hyperlipidemia Qualified Code(s): E78.2 - Mixed hyperlipidemia Plan to address problem: Continue statins (5) DVT prophylaxis Status: Acute Plan to address problem: On heparin and GI prophylaxis
--- NOTE | 2020-07-17 17:02 | Discharge Summary ---
Providers - Providers Date of Admission: 07/17/20 04:48 Date of discharge: 07/17/20 Attending physician: MINOR STEPHENS 07/16/20 17:58 Speech Therapy Evaluation and Treat [CONS] Urgent Reason For Exam: failed swallow screen Primary care physician: MANAGER LINUX Hospitalization Condition: Stable Hospital course: 55-year-old gentleman with past medical history of hypertension, stroke (right temporal infarct with history of encephalomalacia), chronic alcohol intake, history of elevated creatinine kinase brought to the hospital by emergency medical services with a complaint of seizures. He was reportedly found in the car, with convulsive activity. EMS gave Ativan in the field, which terminated his convulsions. In the emergency room, patient postictal, breathing spontaneously, moving 4 extremities. He is not accompanied by friends or family, he can therefore not describe the qualitative nature of his symptoms, exacerbating, relieving factors. EMS verbally reported normal Accu-Chek, and normal vital signs in the field. His only abnormality was mild hypoxia post seizure/postictal. This was corrected with supplemental oxygen. patient resting comfortably in his stretcher, in no acute distress. Patient improved and no withdrawals tremors or anything after 16 hrs. of admission. Patient Patient wants to go home (1) Seizure disorder Status: Acute Plan to address problem: Patient on IV Keppra will change to oral Keppra (2) Rhabdomyolysis Status: Acute Qualifiers: Rhabdomyolysis type: non-traumatic Qualified Code(s): M62.82 - Rhabdomyolysis Plan to address problem: Nontraumatic secondary to seizures IV fluids and increase oral intake (3) Hypertension Status: Chronic Qualifiers: Hypertension type: essential hypertension Qualified Code(s): I10 - Essential (primary) hypertension Plan to address problem: Continue antihypertensives (4) Hyperlipidemia Status: Chronic Qualifiers: Hyperlipidemia type: mixed hyperlipidemia Qualified Code(s): E78.2 - Mixed hyperlipidemia Plan to address problem: Continue statins Disposition: TO HOME OR SELFCARE - Discharge Diagnoses (1) Rhabdomyolysis Status: Acute (2) Seizure disorder Status: Acute (3) Hyperlipidemia Status: Chronic Qualifiers: Hyperlipidemia type: mixed hyperlipidemia Qualified Code(s): E78.2 - Mixed hyperlipidemia (4) Hypertension Status: Chronic Qualifiers: Hypertension type: essential hypertension Qualified Code(s): I10 - Essential (primary) hypertension Core Measure Documentation - Palliative Care Palliative Care/ Comfort Measures: Not Applicable - Core Measures Any of the following diagnoses?: none Exam - Constitutional Vitals: Temp Pulse Resp BP Pulse Ox 98.5 F 64 20 161/88 95 07/17/20 08:30 07/17/20 08:30 07/17/20 08:30 07/17/20 08:30 07/17/20 08:30 General appearance: Present: no acute distress, well-nourished - EENT Eyes: Present: PERRL ENT: hearing intact, clear oral mucosa - Neck Neck: Present: supple, normal ROM - Respiratory Respiratory effort: normal Respiratory: bilateral: CTA - Cardiovascular Heart Sounds: Present: S1 & S2. Absent: rub, click - Extremities Extremities: pulses symmetrical, No edema Peripheral Pulses: within normal limits - Abdominal General gastrointestinal: Present: soft, non-tender, non-distended, normal bowel sounds Male genitourinary: Present: normal - Integumentary Integumentary: Present: clear, warm, dry - Musculoskeletal Musculoskeletal: gait normal, strength equal bilaterally - Psychiatric Psychiatric: appropriate mood/affect, intact judgment & insight - Neurologic Neurologic: CNII-XII intact, moves all extremities - Allied Health Allied health notes reviewed: nursing, case management Plan Activity: no restrictions Diet: low salt Follow up with: ASHA MYERS MD [Staff Physician] - 3-5 Days CASSIDY PORTILLO MD [Staff Physician] - 3-5 Days MOSES VAUGHN MD [Referring] - 3-5 Days Prescriptions: Aspirin [Aspirin BABY CHEW TAB] 81 mg PO QDAY #30 tab.chew Multivitamin with Folic Acid [[facility]vs One Daily Essential Tablet] 400 mcg PO QDAY #30 tablet levETIRAcetam [Keppra TAB] 500 mg PO BID #60 tablet Magnesium Oxide 400 mg PO QDAY #30 tablet
[2020-07-17 17:55] VITALS: BP 142/87
[2020-07-17] MEDS ORDERED: LISINOPRIL 20 MG TAB PO SCH (18:00)
[2020-07-17] MEDS ORDERED: levETIRAcetam 500 MG TAB PO SCH (22:00)
== END 2020-07-17 18:44 | disposition home or self-care (01) ==
LOC: ED 17:43 → 3A 07-17 04:48
PROVIDERS: ADMIT Internal Medicine Geriatric Medicine; ATTEND Internal Medicine
DX: R56.9 Unspecified convulsions (principal); E83.42 Hypomagnesemia; R74.8 Abnormal levels of other serum enzymes; F10.20 Alcohol dependence, uncomplicated; Z79.899 Other long term (current) drug therapy
CPT/HCPCS: 36415; 70450; 71045; 80053; 80307; 81001; 82550; 83735; 85014; 85018; 85049; 85610; 87086; 92610; 93005; 96361; 96365; 96366; 96368; 96375; 99285; G0378; J1885; J1953; J3411; J3475; J7030; J7120; 80048; 80320; G0480

== ENCOUNTER 2020-07-22 15:57 | Emergency (ER) | payer SELFPAY ==
[2020-07-22] MEDS ORDERED: KETOROLAC 30 MG/1 ML INJ IV ONE (16:54)
[2020-07-22] MEDS ORDERED: GABAPENTIN 300 MG CAP PO ONE (16:54)
--- NOTE | 2020-07-22 16:59 | Emergency Department Report ---
ED Extremity Problem HPI - General Chief complaint: High BP Stated complaint: (R) SHOULDER PAIN Time Seen by Provider: 07/22/20 16:41 Source: EMS, old records reviewed Mode of arrival: Stretcher Limitations: No Limitations - History of Present Illness Initial comments: 55-year-old male with a past medical history of hypertension and seizures presents to the hospital complaining of pain to right arm since yesterday. Patient is right-hand dominant and denies any recent trauma. Patient has noticeable limited movement of his right hand as well as atrophy. Patient states he has had chronic limited movement of his fingers and hand for 5 years. He states he woke up one morning and it was like that. He has been advised to follow-up with specialist in the past but has not. Patient describes pain today as a shooting pain from his shoulder down to his all his fingers. The pain is intermittent but fairly persistent and accompanied with a burning and a "moving" sensation. Patient does have history of hypertension and is currently on lisinopril. Last dose yesterday. Patient states he did not take it today because it causes his vision to go blurry. As per previous medical record review patient was here July 16 and prescribed magnesium, folic acid, and multivitamins. He endorses drinking 2 beers last week and denies daily alcohol abuse. Previous medical record reviewed and actually admitted patient earlier this month after he presented to the ED with seizures and rhabdomyolysis. He has a history of a right temporal infarct with subsequent development of seizure disorder. Right temporal infarct would not explain patient's right arm findings. - Related Data Previous Rx's Medication Instructions Recorded Last Taken Type lisinopriL [Zestril TAB] 20 mg PO QDAY #30 tablet 03/27/18 Unknown Rx levETIRAcetam [Keppra TAB] 500 mg PO BID 60 Days #120 tablet 02/08/20 Unknown Rx Aspirin [Aspirin BABY CHEW TAB] 81 mg PO QDAY #30 tab.chew 07/16/20 Unknown Rx Magnesium Oxide 400 mg PO QDAY #30 tablet 07/16/20 Unknown Rx Multivitamin with Folic Acid [[facility] 400 mcg PO QDAY #30 tablet 07/16/20 Unknown Rx One Daily Essential Tablet] levETIRAcetam [Keppra TAB] 500 mg PO BID #60 tablet 07/16/20 Unknown Rx Famotidine [Pepcid] 20 mg PO BID #20 tablet 07/22/20 Unknown Rx Gabapentin 300 mg PO BID #30 cap 07/22/20 Unknown Rx Ibuprofen [Motrin] 600 mg PO Q8H PRN #20 tablet 07/22/20 Unknown Rx Allergies Allergy/AdvReac Type Severity Reaction Status Date / Time No Known Allergies Allergy Verified 08/19/19 17:51 ED Review of Systems ROS: Stated complaint: (R) SHOULDER PAIN Other details as noted in HPI Comment: All other systems reviewed and negative ED Past Medical Hx - Past Medical History Previous Medical History?: Yes Hx Hypertension: Yes Hx Congestive Heart Failure: No Hx Diabetes: No Hx Seizures: Yes Hx Asthma: No Hx COPD: No Additional medical history: left ankle fracture - Surgical History Past Surgical History?: No Additional Surgical History: unknown - Social History Smoking Status: Never Smoker Substance Use Type: None - Medications Home Medications: Home Medications Medication Instructions Recorded Confirmed Last Taken Type lisinopriL [Zestril TAB] 20 mg PO QDAY #30 tablet 03/27/18 10/12/19 Unknown Rx levETIRAcetam [Keppra TAB] 500 mg PO BID 60 Days #120 tablet 02/08/20 Unknown Rx Aspirin [Aspirin BABY CHEW TAB] 81 mg PO QDAY #30 tab.chew 07/16/20 Unknown Rx Magnesium Oxide 400 mg PO QDAY #30 tablet 07/16/20 Unknown Rx Multivitamin with Folic Acid [[facility]vs 400 mcg PO QDAY #30 tablet 07/16/20 Unknown Rx One Daily Essential Tablet] levETIRAcetam [Keppra TAB] 500 mg PO BID #60 tablet 07/16/20 Unknown Rx Famotidine [Pepcid] 20 mg PO BID #20 tablet 07/22/20 Unknown Rx Gabapentin 300 mg PO BID #30 cap 07/22/20 Unknown Rx Ibuprofen [Motrin] 600 mg PO Q8H PRN #20 tablet 07/22/20 Unknown Rx ED Physical Exam - General Limitations: No Limitations - Other Other exam information: General: No acute distress Head: Atraumatic Eyes: normal appearance ENT: Moist mucous membranes Neck: Normal appearance, no midline tenderness Chest: Clear to auscultation bilaterally CV: Regular rate and rhythm Abdomen: Soft, normal bowel sounds, nontender, nondistended, no rebound or guarding Back: Normal inspection Extremity: Noticeable atrophy to intrinsic muscles of right hand. Patient's fingers are held in flexed position and unable to fully extend which is chronic. Patient is able only able to fully flex and extend his right thumb. Patient does not have any tenderness to palpation or pain with movement of his right shoulder, right elbow, right wrist, right hand, upper arm, or forearm. 2+ DP pulses appreciated. Patient does have some mild pain with movement of left shoulder Neuro: Alert O x 3, no facial asymmetry, speech clear, equal arm strength bilaterally however limited movement of right fingers as described in extremity exam. no tremors Psych: Appropriate behavior Skin: No rash ED Course Vital Signs 07/22/20 16:38 Temperature 98.3 F Pulse Rate 86 Respiratory 18 Rate Blood Pressure 154/86 [Right] O2 Sat by Pulse 98 Oximetry ED Medical Decision Making - Medical Decision Making Patient has limited movement of his right hand and atrophy of the hand and was told in the past that he probably has nerve damage. Patient has been referred to a specialist in the past but never followed up. Since yesterday he has had pain from his shoulder to his forearm and fingers which sounds consistent with neuropathic type of pain. Patient is not taking any medications at home. Provided Toradol and Neurontin in the ED. Patient will be discharged with NSAIDs, gabapentin, and outpatient follow-up with a specialist for further evaluation of worsening of his underlying chronic condition Critical Care Time: No Critical care attestation.: If time is entered above; I have spent that time in minutes in the direct care of this critically ill patient, excluding procedure time. ED Disposition Clinical Impression: Neuropathic pain, arm, Atrophy of right hand muscles Disposition: [id number] TO HOME OR SELFCARE Is pt being admited?: No Does the pt Need Aspirin: No Condition: Stable Instructions: Paresthesia (ED) Additional Instructions: Take the medication as prescribed. Follow-up with your doctor or doctor/clinic provided. Return if symptoms worsen as indicated by your discharge instructions. Prescriptions: Gabapentin 300 mg PO BID #30 cap Ibuprofen [Motrin] 600 mg PO Q8H PRN #20 tablet PRN Reason: Pain Famotidine [Pepcid] 20 mg PO BID #20 tablet Referrals: your, primary care doctor [Other] - 3-5 Days CASSIDY PORTILLO MD [Staff Physician] - 3-5 Days (neurologist ) Time of Disposition: 17:07
[2020-07-22 17:55] VITALS: BP 163/97
== END 2020-07-22 17:54 | disposition home or self-care (01) ==
LOC: ED 15:57
DX: M79.2 Neuralgia and neuritis, unspecified (principal); M79.601 Pain in right arm; I10 Essential (primary) hypertension
CPT/HCPCS: 96374; 99283; J1885

== ENCOUNTER 2020-07-24 12:31 | Outpatient (CLI) | payer OTHER ==
--- NOTE | 2020-07-24 15:46 | XRay Report ---
RIGHT HAND 3 VIEWS INDICATION / CLINICAL INFORMATION: R HAND PAIN COMPARISON: None available. FINDINGS: Inability of the patient fully extend fingers limits this exam. BONES and JOINT(S): No acute fracture or subluxation. No significant arthritis. There is an old fract ure of the fifth metacarpal. SOFT TISSUES: No significant abnormality. ADDITIONAL FINDINGS: None. IMPRESSION: 1. No acute abnormality of the right hand. 2. Additional findings as above. Signer Name: Jono Ramírez MD Signed: 07/24/2020 3:41 PM Workstation Name: [id number]
== END 2020-07-24 12:32 | disposition home or self-care (01) ==
LOC: XRAY 12:31
PROVIDERS: ATTEND Internal Medicine
DX: M79.641 Pain in right hand (principal); Z87.81 Personal history of (healed) traumatic fracture

== ENCOUNTER 2020-09-10 06:11 | Inpatient (IN) | payer OTHER ==
[2020-09-10] MEDS ORDERED: ALTEPLASE 100 MG INJ KIT ONE (06:38)
--- NOTE | 2020-09-10 06:48 | Cat Scan Report ---
CT HEAD WITHOUT CONTRAST INDICATION: neuro deficits <6hrs or sx present upon awakening. TECHNIQUE: All CT scans at this location are performed using CT dose reduction for ALARA by means of automated e xposure control. COMPARISON: 07/16/2020. FINDINGS: HEMORRHAGE: None. EXTRA-AXIAL SPACES: Normal in size and morphology for the patient's age. VENTRICULAR SYSTEM: Normal in size and morphology for the patient's age. BRAIN PARENCHYMA: No acute findings. Encephalomalacia in the right temporal lobe is again noted. Left ganglocapsular lacune is unchanged. Mild basal ganglia calcification is again noted. MIDLINE SHIFT OR HERNIATION: None. ORBITS: Normal as visualized. SOFT TISSUES OF HEAD: Normal. CALVARIUM: Normal. VISUALIZED PARANASAL SINUSES AND MASTOID AIR CELLS: Clear. ADDITIONAL FINDINGS: None. IMPRESSION: 1. No acute intracranial abnormality. CODE STROKE: Time of Communication (MED PEDS/CDT): 5:42 AM Licensed Practitioner Receiving Report: Stroke neurologist global consumer sector vice president Signer Name: Navi Gill MD Signed: 09/10/2020 6:43 AM Workstation Name: [id number]
[2020-09-10] MEDS ORDERED: ALTEPLASE 2 MG INJ IV ONE (06:50)
[2020-09-10 06:52] LABS: Basophils # (Auto) 0.1 K/mm3 (0.0-0.1); Basophils % (Auto) 0.7 % (0.0-1.8); Eosinophils # (Auto) 0.1 K/mm3 (0.0-0.4); Eosinophils % (Auto) 1.1 % (0.0-4.3); Hematocrit 44.4 % (35.5-45.6); Mean Corpuscular HGB Conc 34 % (32-34); Mean Corpuscular Volume 90 fl (84-94); Monocytes # (Auto) 0.6 K/mm3 (0.0-0.8); Monocytes % (Auto) 8.4 % (0.0-7.3); Platelet Count 245 K/mm3 (140-440); Red Blood Count 4.95 M/mm3 (3.65-5.03); Red Cell Distribution Width 13.7 % (13.2-15.2)
[2020-09-10] MEDS ORDERED: niCARdipine DRIP 40 MG/200 ML BAG ONE (06:59)
--- NOTE | 2020-09-10 07:01 | Emergency Department Report ---
ED Neuro Deficit HPI - General Chief Complaint: Neuro Symptoms/Deficit Stated Complaint: STROKE Source: patient, EMS Mode of arrival: Stretcher Limitations: Physical Limitation - History of Present Illness Presenting Symptoms: Present: Weak/Paralyzed One Side - Related Data Home Medications: Previous Rx's Medication Instructions Recorded Last Taken Type lisinopriL [Zestril TAB] 20 mg PO QDAY #30 tablet 03/27/18 Unknown Rx levETIRAcetam [Keppra TAB] 500 mg PO BID 60 Days #120 tablet 02/08/20 Unknown Rx Aspirin [Aspirin BABY CHEW TAB] 81 mg PO QDAY #30 tab.chew 07/16/20 Unknown Rx Magnesium Oxide 400 mg PO QDAY #30 tablet 07/16/20 Unknown Rx Multivitamin with Folic Acid [[facility] 400 mcg PO QDAY #30 tablet 07/16/20 Unknown Rx One Daily Essential Tablet] levETIRAcetam [Keppra TAB] 500 mg PO BID #60 tablet 07/16/20 Unknown Rx Famotidine [Pepcid] 20 mg PO BID #20 tablet 07/22/20 Unknown Rx Gabapentin 300 mg PO BID #30 cap 07/22/20 Unknown Rx Ibuprofen [Motrin] 600 mg PO Q8H PRN #20 tablet 07/22/20 Unknown Rx Allergies/Adverse Reactions: Allergies Allergy/AdvReac Type Severity Reaction Status Date / Time No Known Allergies Allergy Verified 08/19/19 17:51 ED Review of Systems ROS: Stated complaint: STROKE Other details as noted in HPI [facility] Date of Service: 09/10/2020 06:08:50 Impression: [facility] [employer] [facility] Comments/Sign-Out: The post tpa protocol needs to be followed. He will have stat cta head , neck . HE will need a repeat ct within 24 hours , echo and brain mri . Mechanism of Stroke: Possible Thromboembolic Metrics: Last Known Well: 09/10/2020 03:30:00 [facility] Notification Time: 09/10/2020 06:08:03 Arrival Time: 09/10/2020 05:42:00 Stamp Time: 09/10/2020 06:08:50 Time First Login Attempt: 09/10/2020 06:14:39 Video Start Time: 09/10/2020 06:14:39 Symptoms: left sided weakness NIHSS Start Assessment Time: 09/10/2020 06:27:13 Patient is a candidate for Alteplase/Activase. Alteplase/Activase CPOE Order Time: 09/10/2020 06:45:21 Needle Time: 09/10/2020 06:50:43 Weight Noted by Staff: 182 lbs Video End Time: 09/10/2020 06:53:21 Reason for Alteplase/Activase Delay: Delays related to tPA Administration CT head showed no acute hemorrhage or acute core infarct. Lower Likelihood of Large Vessel Occlusion but Following Stat Studies are Re commended CTA Head and Neck. CT Perfusion. ED Physician notified of diagnostic impression and management plan on 09/10/2020 06:54:07 Alteplase/Activase Contraindications: Last Known Well > 4.5 hours: No CT Head showing hemorrhage: No Ischemic stroke within 3 months: No Severe head trauma within 3 months: No Intracranial/intraspinal surgery within 3 months: No History of intracranial hemorrhage: No Symptoms and signs consistent with an SAH: No GI malignancy or GI bleed within 21 days: No Coagulopathy: Platelets <100 000/mm3, INR >1.7, aPTT>40 s, or PT >15 s: No Treatment dose of LMWH within the previous 24 hrs: No Use of NOACs in past 48 hours: No Glycoprotein IIb/IIIa receptor inhibitors use: No Symptoms consistent with infective endocarditis: No Suspected aortic arch dissection: No Intra-axial intracranial neoplasm: No Verbal Consent to Alteplase/Activase: I have explained to the Patient the nature of the patients condition, reviewed the indications and contraindications to the use of Alteplase/Activase fibrinolytic agent, reviewed the indications and contraindications and the benefits to be reasonably expected compared with alternative approaches. I have discussed the likelihood of major risks or complications of this procedure including (if applicable) but not limited to loss of limb function, brain damage, paralysis, hemorrhage, infection, complications from transfusion of blood components, drug reactions, blood clots and loss of life. I have also indicated that with any procedure there is always the possibility of an unexpected complication. All questions were answered and Patient express understanding of the treatment plan and consent to the treatment. Our recommendations are outlined below. Recommendations: IV Alteplase/Activase recommended. Alteplase/Activase bolus given Without Complication. IV Alteplase/Activase Total Dose 74.3 mg IV Alteplase/Activase Bolus Dose 7.4 mg IV Alteplase/Activase Infusion Dose - 66.9 mg Routine post Alteplase/Activase monitoring including neuro checks and blood pressure control during/after treatment Monitor blood pressure Check blood pressure and NIHSS every 15 min for 2 h, then every 30 min for 6 h, and finally every hour for 16 h. Manage Blood Pressure per post Alteplase/Activase protocol. Admission to ICU CT brain 24 hours post Alteplase/Activase NPO until swallowing screen performed and passed No antiplatelet agents or anticoagulants (including heparin for DVT prophylaxis) in first 24 hours No White catheter, nasogastric tube, arterial catheter or central venous catheter for 24 hr, unless absolutely necessary Telemetry Bedside swallow evaluation HOB less than 30 degrees Euglycemia Avoid hyperthermia, PRN acetaminophen DVT prophylaxis Inpatient Neurology Consultation Stroke evaluation as per inpatient neurology recommendations Discussed with ED physician History of Present Illness: Patient is a 55 year old Male. Patient was brought by EMS for symptoms of left sided weakness 55 year old male with pmhsf htn, seizures and cva with residual left sided weakness. he was LKN at 3:30 am when his dropped him off at work. while he was at work at about 5 am he suddenly felt dizzy, sweaty and briefly lost consc iousness but did not injure himself . he then had weakness of the left side with numbness. His NIHSS is 6 for the left sided weakness , numbness . THere is no aphasia or vision deficit . He was agreeable to receiving tpa after risks /benefits explained . There were no complications . ct head is negative for bleed. CTA head , neck has been ordered. Last seen normal was within 4.5 hours. There is no history of hemorrhagic complications or intracranial hemorrhage. There is no history of Recent Anticoagulants. There is no history of recent major surgery. There is no history of recent stroke. Past Medical History: Hypertension Stroke There is NO history of Diabetes Mellitus There is NO history of Hyperlipidemia There is NO history of Atrial Fibrillation Anticoagulant use: No Antiplatelet use: No Examination: BP(136/86), Pulse(88), Blood Glucose(126) 1A: Level of Consciousness - Alert; keenly responsive + 0 1B: Ask Month and Age - Both Questions Right + 0 1C: Blink Eyes & Squeeze Hands - Performs Both Tasks + 0 2: Test Horizontal Extraocular Movements - Normal + 0 3: Test Visual Long - Partial Hemianopia + 1 4: Test Facial Palsy (Use Grimace if Obtunded) - Normal symmetry + 0 5A: Test Left Arm Motor Drift - Drift, hits bed + 2 5B: Test Right Arm Motor Drift - No Drift for 10 Seconds + 0 6A: Test Left Leg Motor Drift - Some Effort Against Goodrich + 2 6B: Test Right Leg Motor Drift - No Drift for 5 Seconds + 0 7: Test Limb Ataxia (FNF/Heel-Page) - No Ataxia + 0 8: Test Sensation - Mild-Moderate Loss: Less Sharp/More Dull + 1 9: Test Language/Aphasia - Normal; No aphasia + 0 10: Test Dysarthria - Normal + 0 11: Test Extinction/Inattention - No abnormality + 0 NIHSS Score: 6 Patient/Family was informed the Neurology Consult would happen via TeleHealth consult by way of interactive audio and video telecommunications and consented to receiving care in this manner. Due to the immediate potential for life-threatening deterioration due to underlying acute neurologic illness, I spent 47 minutes providing critical care. This time includes time for face to face visit via telemedicine, review of medical records, imaging studies and discussion of findings with providers, the patient and/or family. Dr Santosh Fong [facility] Case [id number] ED Past Medical Hx - Past Medical History Hx Hypertension: Yes Hx Congestive Heart Failure: No Hx Diabetes: No Hx Seizures: Yes Hx Asthma: No Hx COPD: No Additional medical history: left ankle fracture - Surgical History Additional Surgical History: unknown - Social History Smoking Status: Never Smoker - Medications Home Medications: Home Medications Medication Instructions Recorded Confirmed Last Taken Type lisinopriL [Zestril TAB] 20 mg PO QDAY #30 tablet 03/27/18 10/12/19 Unknown Rx levETIRAcetam [Keppra TAB] 500 mg PO BID 60 Days #120 tablet 02/08/20 Unknown Rx Aspirin [Aspirin BABY CHEW TAB] 81 mg PO QDAY #30 tab.chew 07/16/20 Unknown Rx Magnesium Oxide 400 mg PO QDAY #30 tablet 07/16/20 Unknown Rx Multivitamin with Folic Acid [[facility] 400 mcg PO QDAY #30 tablet 07/16/20 Unknown Rx One Daily Essential Tablet] levETIRAcetam [Keppra TAB] 500 mg PO BID #60 tablet 07/16/20 Unknown Rx Famotidine [Pepcid] 20 mg PO BID #20 tablet 07/22/20 Unknown Rx Gabapentin 300 mg PO BID #30 cap 07/22/20 Unknown Rx Ibuprofen [Motrin] 600 mg PO Q8H PRN #20 tablet 07/22/20 Unknown Rx ED Neuro Physical Exam - General Limitations: Physical Limitation General appearance: alert Suspected Stroke: Yes - NIHSS Assessment Interval: Baseline 1a. Level of Consciousness: alert/keenly responsive 1b. LOC Questions: answers both correctly 1c. LOC Commands: performs tasks correctly 2. Best Gaze: normal 3. Visual: partial hemianopia 4. Facial Palsy: normal symmetrical movement 5b. Motor Arm Right: no drift 5a. Motor Arm Left: some gravity effort 6a. Motor Leg Left: some gravity effort 6b. Motor Leg Right: no drift 7. Limb Ataxia: absent 8. Sensory: mild/moderate sensory loss 9. Best Language: no aphasia 10. Dysarthria: normal 11. Extinction/Inattention: no abnormality Total Score: 6 Stroke Severity: Moderate Stroke ED Course Vital Signs 09/10/20 09/10/20 06:45 06:51 Pulse Rate 95 H 95 H Respiratory 16 18 Rate Blood Pressure 207/107 O2 Sat by Pulse 81 L 97 Oximetry - Lab Data Result diagrams: 09/10/20 06:39 Lab Results 09/10/20 Range/Units 06:39 WBC 6.9 (4.5-11.0) K/mm3 RBC 4.95 (3.65-5.03) M/mm3 Hgb 15.0 (11.8-15.2) gm/dl Hct 44.4 (35.5-45.6) % MCV 90 (84-94) fl MCH 30 (28-32) pg MCHC 34 (32-34) % RDW 13.7 (13.2-15.2) % Plt Count 245 (140-440) K/mm3 Lymph % (Auto) 29.0 (13.4-35.0) % Wilcox % (Auto) 8.4 H (0.0-7.3) % Eos % (Auto) 1.1 (0.0-4.3) % Baso % (Auto) 0.7 (0.0-1.8) % Lymph # (Auto) 2.0 (1.2-5.4) K/mm3 Wilcox # (Auto) 0.6 (0.0-0.8) K/mm3 Eos # (Auto) 0.1 (0.0-0.4) K/mm3 Baso # (Auto) 0.1 (0.0-0.1) K/mm3 Seg Neutrophils % 60.8 (40.0-70.0) % Seg Neutrophils # 4.2 (1.8-7.7) K/mm3 Critical care attestation.: If time is entered above; I have spent that time in minutes in the direct care of this critically ill patient, excluding procedure time. ED Disposition Clinical Impression: CVA (cerebral vascular accident) Disposition: DC-[id number] OP ADMIT IP TO THIS HOSP Is pt being admited?: Yes Does the pt Need Aspirin: No (post tpa protocol should be followed) Condition: Stable
[2020-09-10 07:04] LABS: Partial Thromboplastin Time 25.2 Sec. (24.2-36.6)
[2020-09-10] MEDS ORDERED: LORazepam 2 MG/ML VIAL ONE (07:10)
[2020-09-10 07:11] LABS: Blood Urea Nitrogen 12 mg/dL (9-20); Calcium 9.4 mg/dL (8.4-10.2); Hemolysis Index 14
[2020-09-10] MEDS ORDERED: levETIRAcetam 1000 MG/NS 0.75% 1,000 MG/100 ML BAG IV ONE ×2 (07:13→07:33)
[2020-09-10 07:22] LABS: BUN/Creatinine Ratio 20
[2020-09-10] MEDS ORDERED: LORazepam 2 MG/ML VIAL IV ONE (07:29)
[2020-09-10] MEDS ORDERED: ALTEPLASE 100 MG INJ KIT IV ONE (07:30)
[2020-09-10] MEDS ORDERED: niCARdipine DRIP 40 MG/200 ML BAG IV ONE (07:32)
--- NOTE | 2020-09-10 08:06 | Cat Scan Report ---
CT HEAD WITHOUT CONTRAST INDICATION : seizure post TPA. TECHNIQUE: Axial imaging performed from the skull apex through the skull base without the use of con trast. Sagittal and coronal reformatted images. All CT scans at this location are performed using C T dose reduction for ALARA by means of automated exposure control. COMPARISON: Earlier today at 0617 hours. FINDINGS: Parenchyma: No acute intracranial hemorrhage or parenchymal abnormality. Mild chronic microangiopath y in the white matter and mild cortical volume loss are unchanged. Focal area of chronic encephalomal acia in the lateral right temporal lobe is unchanged measuring 3.3 x 1.1 cm in axial plane. Ventricles: Ventricles are normal in size and appear symmetric. Bones: No acute osseous abnormality. Sinuses: Sinuses and mastoid air cells are clear. Soft tissues: Soft tissues including the orbits appear normal. IMPRESSION: No acute intracranial process has developed. No change since earlier today at 0618 hours. Chronic findings as outlined above. Signer Name: Stephan Judge Jr, MD Signed: 09/10/2020 8:02 AM Workstation Name: [id number]
[2020-09-10] MEDS ORDERED: POTASSIUM CHLORIDE ER 20 MEQ TAB PO ONE ×2 (09:24→12:04)
[2020-09-10] MEDS: niCARdipine 50 MG in SODIUM CHLORIDE 0.9% 250ML 230 ML IV SCH (09:42)
--- NOTE | 2020-09-10 10:44 | Emergency Department Report ---
ED Neuro Deficit HPI - General Chief Complaint: Neuro Symptoms/Deficit Stated Complaint: STROKE Time Seen by Provider: 09/10/20 07:09 Source: patient, EMS Mode of arrival: Stretcher Limitations: Physical Limitation - History of Present Illness Initial Comments: This is a 55-year-old man that arrives at this facility as a code stroke. He went immediately to CT. He was evaluated by a tele-neurologist who did not communicate with me whatsoever concerning her findings or plan. Initially, I was engaged in the transfer of an actively bleeding trauma patient to the [place]. However not long after the patient returned to his room I was able to evaluate him personally. Again the tele-neurologist did not speak to me at all. I was told by the nursing staff that the patient was given TPA upon order of the tele-neurologist. I was obviously surprised by that fact being uninformed. Furthermore, the nurse apparently gave a 7.4 bolus of TPA and obtained a blood pressure which was 210 systolic per the check that obtained the blood pressure. Obviously the drip was not initiated. This is a 55-year-old gentleman who has been admitted here at least twice in the past for recurrent seizures. He was apparently found to have focal deficits at least by 1 of the hospitalist staff. The patient himself was apparently postictal on my initial encounter. I did not feel he was a phasic or dysarthric. He was able to answer my questions well. He did miss the month but knew it was 2019. Later, he was able to tell me that his left side is a little weak. He is aware that he has had a prior stroke. Previous CTs and the current one today shows a right temporal encephalomalacia. The patient did not complain of numbness or weakness. When asked if he had anything like this before he stated that his last similar episode was 3 weeks ago. In fact, he was admitted here in June the last time for recurrent seizures associated with alcohol withdrawal. He told me that his last alcohol intake was on Thursday. He was uncertain as to whether he had a seizure this morning. However, in my estimation, it was exceedingly likely that this patient had a postictal state on my initial encounter. I did page the tele-neurologist. There was at least 30 m inutes before they returned my call. Patient was found to have persistently elevated hypertension. He was given labetalol and ultimately placed on a Cardene drip. A repeat CT of his head was ordered. Patient told me that his last known well time was at 4 AM. He claims he just got to work. When I asked him about the unusual shift time he stated "some people go to work at 1:30 AM. Again, he was not aphasic nor dysarthric he was following commands perfectly well I did appear to have very mild left hemiparesis was at work. - Related Data Home Medications: Previous Rx's Medication Instructions Recorded Last Taken Type lisinopriL [Zestril TAB] 20 mg PO QDAY #30 tablet 03/27/18 Unknown Rx levETIRAcetam [Keppra TAB] 500 mg PO BID 60 Days #120 tablet 02/08/20 Unknown Rx Aspirin [Aspirin BABY CHEW TAB] 81 mg PO QDAY #30 tab.chew 07/16/20 Unknown Rx Magnesium Oxide 400 mg PO QDAY #30 tablet 07/16/20 Unknown Rx Multivitamin with Folic Acid [[facility] 400 mcg PO QDAY #30 tablet 07/16/20 Unknown Rx One Daily Essential Tablet] levETIRAcetam [Keppra TAB] 500 mg PO BID #60 tablet 07/16/20 Unknown Rx Famotidine [Pepcid] 20 mg PO BID #20 tablet 07/22/20 Unknown Rx Gabapentin 300 mg PO BID #30 cap 07/22/20 Unknown Rx Ibuprofen [Motrin] 600 mg PO Q8H PRN #20 tablet 07/22/20 Unknown Rx Allergies/Adverse Reactions: Allergies Allergy/AdvReac Type Severity Reaction Status Date / Time No Known Allergies Allergy Verified 08/19/19 17:51 ED Review of Systems ROS: Stated complaint: STROKE Other details as noted in HPI Constitutional: no symptoms reported ENT: denies: throat pain, hearing loss Respiratory: denies: cough, shortness of breath Cardiovascular: denies: chest pain, edema Endocrine: no symptoms reported Gastrointestinal: denies: abdominal pain, vomiting Genitourinary: denies: frequency, hematuria Musculoskeletal: other (No symptoms reported) Skin: other (Nothing reported) Neurological: headache (Later told the nurse he has been having some headache), other (Patient is unaware of any weakness or numbness beyond his baseline) Psychiatric: other (No symptoms reported). denies: auditory hallucinations, visual hallucinations Hematological/Lymphatic: denies: easy bleeding, easy bruising ED Past Medical Hx - Past Medical History Hx Hypertension: Yes Hx Congestive Heart Failure: No Hx Diabetes: No Hx Seizures: Yes Hx Asthma: No Hx COPD: No Additional medical history: left ankle fracture - Surgical History Additional Surgical History: unknown - Social History Smoking Status: Never Smoker - Medications Home Medications: Home Medications Medication Instructions Recorded Confirmed Last Taken Type lisinopriL [Zestril TAB] 20 mg PO QDAY #30 tablet 03/27/18 10/12/19 Unknown Rx levETIRAcetam [Keppra TAB] 500 mg PO BID 60 Days #120 tablet 02/08/20 Unknown Rx Aspirin [Aspirin BABY CHEW TAB] 81 mg PO QDAY #30 tab.chew 07/16/20 Unknown Rx Magnesium Oxide 400 mg PO QDAY #30 tablet 07/16/20 Unknown Rx Multivitamin with Folic Acid [[facility] 400 mcg PO QDAY #30 tablet 07/16/20 Unknown Rx One Daily Essential Tablet] levETIRAcetam [Keppra TAB] 500 mg PO BID #60 tablet 07/16/20 Unknown Rx Famotidine [Pepcid] 20 mg PO BID #20 tablet 07/22/20 Unknown Rx Gabapentin 300 mg PO BID #30 cap 07/22/20 Unknown Rx Ibuprofen [Motrin] 600 mg PO Q8H PRN #20 tablet 07/22/20 Unknown Rx ED Neuro Physical Exam - General Limitations: Physical Limitation General appearance: lethargic (Mildly) Suspected Stroke: No (I believe unlikely) - Head Head exam: Present: atraumatic, normocephalic - Eye Eye exam: Present: normal appearance. Absent: PERRL, EOMI, scleral icterus - ENT ENT exam: Present: mucous membranes moist - Neck Neck exam: Present: normal inspection. Absent: tenderness, meningismus - Respiratory Respiratory exam: Present: normal lung sounds bilaterally. Absent: respiratory distress - Cardiovascular Cardiovascular Exam: Present: regular rate, normal rhythm. Absent: systolic murmur, diastolic murmur, rubs, gallop - GI/Abdominal GI/Abdominal exam: Present: soft, normal bowel sounds. Absent: distended, tenderness, guarding, rebound, rigid - Rectal Rectal exam: Present: deferred - Extremities Exam Extremities exam: Present: normal inspection - Back Exam Back exam: Present: normal inspection - Neurological Exam Neurological exam: Present: oriented X3, CN II-XII intact, motor sensory deficit. Absent: alert (I believe mildly postictal) - NIHSS Assessment Interval: Baseline 1a. Level of Consciousness: arousable/minor stimuli 1b. LOC Questions: answers 1 question correctly 1c. LOC Commands: performs tasks correctly 2. Best Gaze: normal 3. Visual: no visual loss 4. Facial Palsy: normal symmetrical movement 5b. Motor Arm Right: no drift 5a. Motor Arm Left: drift (Very slight) 6a. Motor Leg Left: drift (Very slight) 6b. Motor Leg Right: no drift 7. Limb Ataxia: absent 8. Sensory: normal 9. Best Language: no aphasia 10. Dysarthria: normal 11. Extinction/Inattention: no abnormality Total Score: 4 Stroke Severity: Minor Stroke - Psychiatric Psychiatric exam: Present: normal affect, normal mood - Skin Skin exam: Present: warm, dry, intact, normal color. Absent: rash ED Course Vital Signs 09/10/20 09/10/20 09/10/20 06:45 06:50 06:51 Pulse Rate 95 H 95 H 95 H Pulse Rate [ Right Arm] Respiratory 16 18 Rate Respiratory Rate [Right Arm ] Blood Pressure 207/107 207/107 Blood Pressure [Right Arm] O2 Sat by Pulse 81 L 97 Oximetry O2 Sat by Pulse Oximetry [ Right Arm] 09/10/20 09/10/20 09/10/20 06:55 07:00 07:05 Pulse Rate 95 H 96 H 95 H Pulse Rate [ Right Arm] Respiratory 23 12 20 Rate Respiratory Rate [Right Arm ] Blood Pressure 207/107 197/115 197/115 Blood Pressure [Right Arm] O2 Sat by Pulse 99 99 99 Oximetry O2 Sat by Pulse Oximetry [ Right Arm] 09/10/20 09/10/20 09/10/20 07:11 07:15 07:20 Pulse Rate 164 H 90 86 Pulse Rate [ 87 Right Arm] Respiratory 49 H 23 17 Rate Respiratory 16 Rate [Right Arm ] Blood Pressure 180/102 210/129 190/111 Blood Pressure 190/111 [Right Arm] O2 Sat by Pulse 97 96 94 Oximetry O2 Sat by Pulse 94 Oximetry [ Right Arm] 09/10/20 09/10/20 09/10/20 07:25 07:30 07:32 Pulse Rate 81 80 79 Pulse Rate [ Right Arm] Respiratory 19 22 Rate Respiratory Rate [Right Arm ] Blood Pressure 170/97 171/101 171/101 Blood Pressure [Right Arm] O2 Sat by Pulse 95 95 Oximetry O2 Sat by Pulse Oximetry [ Right Arm] 09/10/20 09/10/20 09/10/20 07:35 07:40 07:44 Pulse Rate 79 82 95 H Pulse Rate [ 80 Right Arm] Respiratory 25 H 18 Rate Respiratory 22 Rate [Right Arm ] Blood Pressure 172/102 159/90 207/107 Blood Pressure 172/102 [Right Arm] O2 Sat by Pulse 95 94 Oximetry O2 Sat by Pulse 95 Oximetry [ Right Arm] 09/10/20 09/10/20 09/10/20 07:50 07:57 08:00 Pulse Rate 81 79 Pulse Rate [ 80 Right Arm] Respiratory 26 H 25 H Rate Respiratory 19 Rate [Right Arm ] Blood Pressure 140/85 148/88 Blood Pressure 140/85 [Right Arm] O2 Sat by Pulse 85 84 Oximetry O2 Sat by Pulse 94 Oximetry [ Right Arm] 09/10/20 09/10/20 09/10/20 08:05 08:10 08:15 Pulse Rate 78 78 Pulse Rate [ Right Arm] Respiratory 10 L 17 Rate Respiratory Rate [Right Arm ] Blood Pressure 151/92 166/99 166/99 Blood Pressure [Right Arm] O2 Sat by Pulse 98 98 98 Oximetry O2 Sat by Pulse Oximetry [ Right Arm] 09/10/20 09/10/20 09/10/20 08:32 08:35 08:40 Pulse Rate 76 Pulse Rate [ Right Arm] Respiratory 25 H Rate Respiratory Rate [Right Arm ] Blood Pressure 170/100 165/96 Blood Pressure [Right Arm] O2 Sat by Pulse 86 90 Oximetry O2 Sat by Pulse Oximetry [ Right Arm] 09/10/20 09/10/20 09/10/20 08:45 08:50 08:54 Pulse Rate 75 74 79 Pulse Rate [ Right Arm] Respiratory 23 18 Rate Respiratory Rate [Right Arm ] Blood Pressure 166/98 176/101 171/101 Blood Pressure [Right Arm] O2 Sat by Pulse 78 L 99 Oximetry O2 Sat by Pulse Oximetry [ Right Arm] 09/10/20 09/10/20 09/10/20 08:55 09:00 09:05 Pulse Rate 74 76 77 Pulse Rate [ Right Arm] Respiratory 21 16 25 H Rate Respiratory Rate [Right Arm ] Blood Pressure 171/100 166/102 166/102 Blood Pressure [Right Arm] O2 Sat by Pulse 100 100 100 Oximetry O2 Sat by Pulse Oximetry [ Right Arm] 09/10/20 09/10/20 09/10/20 09:11 09:15 09:21 Pulse Rate 76 97 H 81 Pulse Rate [ Right Arm] Respiratory 24 25 H 18 Rate Respiratory Rate [Right Arm ] Blood Pressure 166/102 170/100 170/100 Blood Pressure [Right Arm] O2 Sat by Pulse 100 99 100 Oximetry O2 Sat by Pulse Oximetry [ Right Arm] 09/10/20 09/10/20 09/10/20 09:25 09:31 09:50 Pulse Rate 76 77 74 Pulse Rate [ Right Arm] Respiratory 23 20 26 H Rate Respiratory Rate [Right Arm ] Blood Pressure 170/100 159/105 151/103 Blood Pressure [Right Arm] O2 Sat by Pulse 98 96 99 Oximetry O2 Sat by Pulse Oximetry [ Right Arm] - Reevaluation(s) Reevaluation #1: After my initial encounter, it appears very unlikely that the patient had a CVA and very likely that he was postictal possibly with some mild Ton's paresis. He has had previous seizures associated with alcohol withdrawal. He is likely to be medically noncompliant with his Keppra. He was not a phasic. He seems to be stating that he has slight left-sided weakness at his baseline. In addition he does not complain of weakness numbness or difficulty with his speech. Shortly after my encounter, I discontinued the patient's TPA. I paged the tele- neurologist who did not return the page for quite some time. The patient was given labetalol. Cardene drip was initiated. Not soon after my initial encou nter the patient had a generalized seizure. He was given a milligram of Ativan and a gram of Keppra had already been ordered. A second CT was ordered. There was no interval change. I asked the nurses to carefully titrate the patient's blood pressure with the Cardene drip. On reexamination the patient's mental status generally improved over time. However after receiving the Ativan and having a generalized seizure he was clearly postictal. He became hypoxic. He was placed on supplemental oxygen. An arterial blood gas was obtained showing an acute respiratory acidosis. He was placed on BiPAP. Not withstanding the above, the patient's condition was generally improving. He is moving his arms and legs fine. He is on a BiPAP. He was with the hospitalist. I do not believe the hospitalist is found any focal motor deficit during his exam. Thus, the patient will be admitted to the ICU for further care monitoring and stroke work-up. 09/10/20 10:50 - Lab Data Result diagrams: 09/10/20 06:39 09/10/20 06:39 Lab Results 09/10/20 09/10/20 09/10/20 Range/Units 06:39 06:39 06:39 WBC 6.9 (4.5-11.0) K/mm3 RBC 4.95 (3.65-5.03) M/mm3 Hgb 15.0 (11.8-15.2) gm/dl Hct 44.4 (35.5-45.6) % MCV 90 (84-94) fl MCH 30 (28-32) pg MCHC 34 (32-34) % RDW 13.7 (13.2-15.2) % Plt Count 245 (140-440) K/mm3 Lymph % (Auto) 29.0 (13.4-35.0) % Garza % (Auto) 8.4 H (0.0-7.3) % Eos % (Auto) 1.1 (0.0-4.3) % Baso % (Auto) 0.7 (0.0-1.8) % Lymph # (Auto) 2.0 (1.2-5.4) K/mm3 Garza # (Auto) 0.6 (0.0-0.8) K/mm3 Eos # (Auto) 0.1 (0.0-0.4) K/mm3 Baso # (Auto) 0.1 (0.0-0.1) K/mm3 Seg Neutrophils % 60.8 (40.0-70.0) % Seg Neutrophils # 4.2 (1.8-7.7) K/mm3 PT 13.3 (12.2-14.9) Sec. INR 1.00 (0.87-1.13) APTT 25.2 (24.2-36.6) Sec. ABG pH (7.320-7.450) POC ABG pCO2 (32.0-48.0) mmHg POC ABG pO2 (83-108) mmHg POC ABG HCO3 POC ABG Base Excess ABG Hemoglobin (12.0-17.5) ABG Sodium (136.0-145.0) mmol/L ABG Potassium (3.40-4.50) mmol/L ABG Chloride (98-107) mmol/L ABG Glucose (65-95) mg/dL FiO2 Sodium 134 L (137-145) mmol/L Potassium 3.2 L (3.6-5.0) mmol/L Chloride 94.4 L (98-107) mmol/L Carbon Dioxide 22 (22-30) mmol/L Anion Gap 21 mmol/L BUN 12 (9-20) mg/dL Creatinine 0.6 L (0.8-1.3) mg/dL Estimated GFR > 60 ml/min BUN/Creatinine Ratio 20 % Glucose 159 H (75-100) mg/dL Calcium 9.4 (8.4-10.2) mg/dL Troponin T < 0.010 (0.00-0.029) ng/mL Arterial Blood Glucose (65-95) mg/dL Arterial Blood Ionized Calcium (4.6-5.3) mg/dL 09/10/20 Range/Units 09:15 WBC (4.5-11.0) K/mm3 RBC (3.65-5.03) M/mm3 Hgb (11.8-15.2) gm/dl Hct (35.5-45.6) % MCV (84-94) fl MCH (28-32) pg MCHC (32-34) % RDW (13.2-15.2) % Plt Count (140-440) K/mm3 Lymph % (Auto) (13.4-35.0) % Garza % (Auto) (0.0-7.3) % Eos % (Auto) (0.0-4.3) % Baso % (Auto) (0.0-1.8) % Lymph # (Auto) (1.2-5.4) K/mm3 Garza # (Auto) (0.0-0.8) K/mm3 Eos # (Auto) (0.0-0.4) K/mm3 Baso # (Auto) (0.0-0.1) K/mm3 Seg Neutrophils % (40.0-70.0) % Seg Neutrophils # (1.8-7.7) K/mm3 PT (12.2-14.9) Sec. INR (0.87-1.13) APTT (24.2-36.6) Sec. ABG pH 7.200 L (7.320-7.450) POC ABG pCO2 75.4 H (32.0-48.0) mmHg POC ABG pO2 250.6 H (83-108) mmHg POC ABG HCO3 28.8 POC ABG Base Excess -1.5 ABG Hemoglobin 15.3 (12.0-17.5) ABG Sodium 136.3 (136.0-145.0) mmol/L ABG Potassium 3.8 (3.40-4.50) mmol/L ABG Chloride 98.0 (98-107) mmol/L ABG Glucose 188 H (65-95) mg/dL FiO2 98.0 Sodium (137-145) mmol/L Potassium (3.6-5.0) mmol/L Chloride (98-107) mmol/L Carbon Dioxide (22-30) mmol/L Anion Gap mmol/L BUN (9-20) mg/dL Creatinine (0.8-1.3) mg/dL Estimated GFR ml/min BUN/Creatinine Ratio % Glucose (75-100) mg/dL Calcium (8.4-10.2) mg/dL Troponin T (0.00-0.029) ng/mL Arterial Blood Glucose 188 H (65-95) mg/dL Arterial Blood Ionized Calcium 4.9 (4.6-5.3) mg/dL Critical Care Time: Yes Critical care time in (mins) excluding proc time.: 110 Critical care attestation.: If time is entered above; I have spent that time in minutes in the direct care of this critically ill patient, excluding procedure time. ED Disposition Clinical Impression: Recurrent seizures CVA (cerebral vascular accident) Qualifiers: CVA mechanism: unspecified Qualified Code(s): I63.9 - Cerebral infarction, unspecified Respiratory failure Qualifiers: Chronicity: acute Respiratory failure complication: hypercapnia Qualified Code(s): J96.02 - Acute respiratory failure with hypercapnia Disposition: OP ADMIT IP TO THIS HOSP Is pt being admited?: Yes Does the pt Need Aspirin: Yes Condition: Stable Referrals: PRIMARY CARE, [Primary Care Provider] - 3-5 Days Time of Disposition: 10:56
[2020-09-10] MEDS ORDERED: ASPIRIN 325 MG TAB PO ONE (10:57)
--- NOTE | 2020-09-10 11:00 | Consultation ---
History of Present Illness Consult date: 09/10/20 Requesting physician: BLAINE HARRINGTON Reason for Consult: Seizure or Stroke Chief complaint: "I felt bad." History of present illness: 55 yo male with htn, dm, stroke, seizure d/o who notes increasing frequency of seizures "lately" with the last seizure occuring 2 weeks ago w/ loss of consciousness. Notes compliance with Keppra. 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 Noted in the ED with hypoxemia, ?hemiparesis (per teleneurology note) to generalized weakness per ED / H&P notes. Post-evaluated by telestroke, in the ED, the patient was initiated on IV-tPA but it was stopped secondary to noted elevated blood pressure and rapid improvement of patient's symptoms/signs. Currently, he still notes numbness of the left hand which he notes as new. Notes an old injury of the right hand that keeps it at a clawed position with hyperestheisa of that hand since the injury 5 years ago. He denies any other neurologic symptoms. Medications and Allergies Allergies Allergy/AdvReac Type Severity Reaction Status Date / Time No Known Allergies Allergy Verified 08/19/19 17:51 Home Medications Medication Instructions Recorded Confirmed Last Taken Type lisinopriL [Zestril TAB] 20 mg PO QDAY #30 tablet 03/27/18 10/12/19 Unknown Rx levETIRAcetam [Keppra TAB] 500 mg PO BID 60 Days #120 tablet 02/08/20 Unknown Rx Aspirin [Aspirin BABY CHEW TAB] 81 mg PO QDAY #30 tab.chew 07/16/20 Unknown Rx Magnesium Oxide 400 mg PO QDAY #30 tablet 07/16/20 Unknown Rx Multivitamin with Folic Acid [[facility] 400 mcg PO QDAY #30 tablet 07/16/20 Unknown Rx One Daily Essential Tablet] levETIRAcetam [Keppra TAB] 500 mg PO BID #60 tablet 07/16/20 Unknown Rx Famotidine [Pepcid] 20 mg PO BID #20 tablet 07/22/20 Unknown Rx Gabapentin 300 mg PO BID #30 cap 07/22/20 Unknown Rx Ibuprofen [Motrin] 600 mg PO Q8H PRN #20 tablet 07/22/20 Unknown Rx Active Meds: Active Medications Famotidine (Pepcid) 20 mg PO BID JOSE CARLOS Gabapentin (Gabapentin) 300 mg PO BID JOSE CARLOS Nicardipine HCl 50 mg/ Sodium (Chloride) 250 mls @ 25 mls/hr IV TITR JOSE CARLOS; Protocol Last Admin: 09/10/20 09:42 Dose: 5 mg/hr, 25 mls/hr Documented by: Nicardipine/Sodium Chloride (Cardene Drip 40 Mg/200 Ml) 40 mg in 200 mls @ 25 mls/hr IV ONCE ONE; Protocol Stop: 09/10/20 15:31 Last Titration: 09/10/20 08:00 Dose: 0 mg/hr, 0 mls/hr Documented by: Levetiracetam (Keppra) 500 mg PO BID JOSE CARLOS Lisinopril (Zestril) 20 mg PO QDAY JOSE CARLOS Physical Examination - Vital Signs Vital Signs: Vital Signs Pulse Resp Pulse Ox 95 H 16 81 L 09/10/20 06:45 09/10/20 06:45 09/10/20 06:45 - Additional Exam Additional Exam: Gen: nad, well-nourished; Head: normocephalic; Eyes: no gaze deviation; no ptosis; ENT: normal vocalization; CVS: warm and well-perfused; Pulm: no respiratory distress;; GI: non-distended, protuberant; Ext: no cyanosis or edema at distal extremities; Skin: no acute rash or hives at distal extremities; Heme: no pathologic bruising or ecchymosis at distal extremities; Neuro: alert, oriented to name, age, month, year, surroundings, no dysarthria, no aphasia, CN 2 - PERRL, visual mack intact, CN 3, 4, 6 - EOMI, CN 5 - facial sensation symmetric to light touch, CN 7 - facial movement symmetric, CN 8 - hearing grossly intact, CN 9, 10 - uvula midline, CN 11 - shrug symmetric, CN 12 - tongue midline; Motor - at least 4+/5 in all exts except decreased right finger (digits 2-5) extension; Sensory - light touch symmetric except painful sensitivity at dorsum of right hand, Cerebellar - fnf /htsintact, Gait - deferred secondary to fall risk; NIHSS (1a.) Level of Consciousness:0 (1b.) LOC Questions:0 (1c.) LOC Commands:0 (2.) Best Gaze:0 (3.) Visual:0 (4.) Facial Palsy:0 (5a.) Motor Arm, Left:0 (5b.) Motor Arm, Right:0 (6a.) Motor Leg, Left:0 (6b.) Motor Leg, Right:0 (7.) Limb Ataxia:0 (8.) Sensory:0 (9.) Best Language:0 (10.) Dysarthria:0 (11.) Extinction and Inattention:0 NIHSS Total Score: 0 Results - Laboratory Findings CBC and BMP: 09/10/20 06:39 09/10/20 06:39 Abnormal Lab Findings: Abnormal Labs 09/10/20 09/10/20 09/10/20 06:39 06:39 09:15 [place] % (Auto) 8.4 H ABG pH 7.200 L POC ABG pCO2 75.4 H POC ABG pO2 250.6 H ABG Glucose 188 H Sodium 134 L Potassium 3.2 L Chloride 94.4 L Creatinine 0.6 L Glucose 159 H Arterial Blood Glucose 188 H Assessment and Plan 55 yo male with htn, dm, stroke, seizure d/o who notes increasing frequency of seizures "lately" with the last seizure occuring 2 weeks ago w/ loss of consciousness, initially brought in as a code stroke (initiated on tPA) and noted with rapid improvement, hypertensive emergency, and w/ immediate cessation of IV-tPA administration. 1. Seizure - recommend EEG (routine); MRI Brain w/ wo contrast (if no contraindications); keppra 1000 mg IV/PO bid no driving restrictions w/ activity (no self-climb/kiah/cook/bath or supervisory or heavy machinery roles until cleared by Neurology; metabolic triggers per primary team. 2. Hypoxemia - w/ CO2 retention; per primary team. 3. Hx of stroke - if non-traumatic and non-hemorrhagic, recommend antiplatelet/statin therapy; pt is not clear on the history. 4. HTN - permissive hypertension. 5. DM - maintain euglycemia. 6. Seizure precautions. Fall precautions. Chacorta Lopez MD Neurology
--- NOTE | 2020-09-10 11:13 | History and Physical Report ---
History of Present Illness Date of examination: 09/10/20 Chief complaint: Patient was brought into the ED with code stroke History of present illness: Sean Triana is a 55-year-old -British male with history of hypertension, type 2 diabetes, seizure disorder and remote history of stroke with residual left-sided weakness, apparently was brought in by EMS with code stroke and telemetry neurologist was consulted and was recommended TPA. A bolus dose of TPA was administered. Meanwhile ED physician saw the patient, was noted to be severely hypertensive, and TPA drip was canceled and patient was started on Cardene IV drip. Per discussion with ED physician, he does not think patient had a stroke. He suspects postictal state as the patient presented with postictal state twice in the past few months. At the time of my evaluation patient is on BiPAP, he is awake but still somewhat sleepy, oriented to his name and age and he offers no specific complaints. He denies any headache or any new onset weakness in the extremities. He denies any chest pain or shortness of breath. He states he quit smoking but still smokes off and on and consumes 3 to 4 cans of beer daily. Patient is being admitted for further evaluation of his altered mentation. Neurology and pulmonary consults have been requested Past History Past Medical History: diabetes, hypertension, seizures, stroke Past Surgical History: Other (Unknown at this time) Social history: smoking, alcohol abuse (He states he drinks 3-4 beers a day) Family history: diabetes (Sister has diabetes and hypertension), hypertension Medications and Allergies Allergies Allergy/AdvReac Type Severity Reaction Status Date / Time No Known Allergies Allergy Verified 08/19/19 17:51 Home Medications Medication Instructions Recorded Confirmed Last Taken Type lisinopriL [Zestril TAB] 20 mg PO QDAY #30 tablet 03/27/18 10/12/19 Unknown Rx levETIRAcetam [Keppra TAB] 500 mg PO BID 60 Days #120 tablet 02/08/20 Unknown Rx Aspirin [Aspirin BABY CHEW TAB] 81 mg PO QDAY #30 tab.chew 07/16/20 Unknown Rx Magnesium Oxide 400 mg PO QDAY #30 tablet 07/16/20 Unknown Rx Multivitamin with Folic Acid [Cvs 400 mcg PO QDAY #30 tablet 07/16/20 Unknown Rx One Daily Essential Tablet] levETIRAcetam [Keppra TAB] 500 mg PO BID #60 tablet 07/16/20 Unknown Rx Famotidine [Pepcid] 20 mg PO BID #20 tablet 07/22/20 Unknown Rx Gabapentin 300 mg PO BID #30 cap 07/22/20 Unknown Rx Ibuprofen [Motrin] 600 mg PO Q8H PRN #20 tablet 07/22/20 Unknown Rx Active Meds: Active Medications Acetaminophen (Tylenol) 650 mg PO Q4H PRN PRN Reason: Pain, Mild (1-3) Atorvastatin Calcium (Lipitor) 40 mg PO QHS JOSE CARLOS Bisacodyl (Dulcolax) 10 mg [place] QDAY PRN PRN Reason: Constipation Dextrose (D50w (25gm) Syringe) 50 ml IV Q30MIN PRN; Protocol PRN Reason: Hypoglycemia Famotidine (Pepcid) 20 mg PO BID JOSE CARLOS Gabapentin (Gabapentin) 300 mg PO BID [facility] Heparin Sodium (Porcine) (Heparin) 5,000 unit SUB-Q Q8HR [facility] Nicardipine HCl 50 mg/ Sodium (Chloride) 250 mls @ 25 mls/hr IV TITR JOSE CARLOS; Protocol Last Admin: 09/10/20 09:42 Dose: 5 mg/hr, 25 mls/hr Documented by: Nicardipine/Sodium Chloride (Cardene Drip 40 Mg/200 Ml) 40 mg in 200 mls @ 25 mls/hr IV ONCE ONE; Protocol Stop: 09/10/20 15:31 Last Titration: 09/10/20 08:00 Dose: 0 mg/hr, 0 mls/hr Documented by: Dextrose/Sodium Chloride (D5/0.45ns) 1,000 mls @ 75 mls/hr IV DIRECT [facility] Insulin Human Lispro (Humalog) 0 unit SUB-Q Q6H [facility]; Protocol Levetiracetam (Keppra) 500 mg PO BID [facility] Lisinopril (Zestril) 20 mg PO QDAY [facility] Magnesium Hydroxide (Milk Of Magnesia) 30 ml PO Q4H PRN PRN Reason: Constipation Metoclopramide HCl (Reglan) 10 mg PO Q6H PRN PRN Reason: Nausea And Vomiting Ondansetron HCl (Zofran) 4 mg IV Q8H PRN PRN Reason: Nausea And Vomiting Promethazine HCl (Phenergan) 25 mg [place] Q6H PRN PRN Reason: Nausea And Vomiting Sodium Chloride (Sodium Chloride Flush Syringe 10 Ml) 10 ml IV BID JOSE CARLOS Sodium Chloride (Sodium Chloride Flush Syringe 10 Ml) 10 ml IV PRN PRN PRN Reason: LINE FLUSH Sodium Chloride (Sodium Chloride Flush Syringe 10 Ml) 10 ml INJ PRN PRN PRN Reason: LINE FLUSH Review of Systems Constitutional: no weight loss, no weight gain, no fever, no chills, no fatigue, no weakness Ears, nose, mouth and throat: no ear pain, no sore throat Cardiovascular: high blood pressure, no chest pain, no palpitations, no lightheadedness Respiratory: no cough, no shortness of breath Gastrointestinal: no abdominal pain, no nausea, no vomiting, no diarrhea, no constipation Genitourinary Male: no dysuria Rectal: no pain Musculoskeletal: muscle weakness (Left-sided weakness), no neck pain Integumentary: no rash Neurological: weakness (Left-sided weakness), seizures, no head injury, no headaches, no migraines Psychiatric: no anxiety, no depression Exam - Constitutional Vitals: Temp Pulse Resp BP Pulse Ox 74 26 H 151/103 99 09/10/20 09:50 09/10/20 09:50 09/10/20 09:50 09/10/20 09:50 General appearance: Present: no acute distress, well-nourished - EENT Eyes: Present: PERRL, EOM intact ENT: hearing intact - Neck Neck: Present: supple, normal ROM. Absent: masses or JVD - Respiratory Respiratory effort: normal Respiratory: bilateral: CTA, diminished, negative: rales, rhonchi - Cardiovascular Rhythm: regular Heart Sounds: Present: S1 & S2 - Extremities Extremities: No edema - Abdominal General gastrointestinal: Present: soft, non-tender. Absent: hepatomegaly, splenomegaly Male genitourinary: Present: deferred - Rectal Rectal Exam: deferred - Integumentary Integumentary: Present: clear - Musculoskeletal Musculoskeletal: left sided weakness - Psychiatric Psychiatric: appropriate mood/affect, other (Sleepy) HEART Score - HEART Score Troponin: Troponin T < 0.010 ng/mL (0.00-0.029) 09/10/20 06:39 Results - Labs CBC & Chem 7: 09/10/20 06:39 09/10/20 06:39 Labs: Abnormal lab results 09/10/20 09/10/20 09/10/20 Range/Units 06:39 06:39 09:15 [place] % (Auto) 8.4 H (0.0-7.3) % ABG pH 7.200 L (7.320-7.450) POC ABG pCO2 75.4 H (32.0-48.0) mmHg POC ABG pO2 250.6 H (83-108) mmHg ABG Glucose 188 H (65-95) mg/dL Sodium 134 L (137-145) mmol/L Potassium 3.2 L (3.6-5.0) mmol/L Chloride 94.4 L (98-107) mmol/L Creatinine 0.6 L (0.8-1.3) mg/dL Glucose 159 H (75-100) mg/dL Arterial Blood Glucose 188 H (65-95) mg/dL Assessment and Plan - Patient Problems (1) Hypertensive emergency Current Visit: Yes Status: Acute Plan to address problem: Patient's blood pressure systolic at presentation was in the 180s and soon after went up to 210/129 Patient was started on IV Cardene drip and at this time blood pressure is well controlled with BP systolic around 150-160 We will restart her home medication of lisinopril Will try to wean off her Cardene drip Patient will be admitted to the ICU (2) Hypokalemia Current Visit: Yes Status: Acute Plan to address problem: Patient had potassium supplemented while in ED Monitor electrolytes (3) Hyponatremia Current Visit: Yes Status: Acute Plan to address problem: Mild Monitor electrolytes No further hyponatremia work-up (4) CVA (cerebral vascular accident) Current Visit: Yes Status: Chronic Qualifiers: CVA mechanism: other Qualified Code(s): I63.89 - Other cerebral infarction Plan to address problem: Patient had CT head x2 while in ED No hemorrhage No acute lesions Will order MRI brain Neuro consulted We will request speech, PT and OT consults (5) Respiratory failure Current Visit: Yes Status: Acute Qualifiers: Chronicity: acute Respiratory failure complication: hypercapnia Qualified Code(s): J96.02 - Acute respiratory failure with hypercapnia Plan to address problem: ABG on BiPAP results reviewed We will change to nasal cannula at 4 L and repeat ABG Pulmonary consult with Dr. Gotti (6) History of alcohol abuse Current Visit: No Status: Chronic Plan to address problem: Patient is not in any withdrawal or alcohol intoxication He states he drinks 3-4 beers a day We will monitor for now I do not think patient needs CIWA protocol at this time (7) Seizure disorder Current Visit: No Status: Chronic Plan to address problem: Continue Keppra (8) Acute encephalopathy Current Visit: Yes Status: Acute Plan to address problem: Most likely postictal state Patient's mental status is already improving and is alert to his name and age and responds fairly well Will monitor
[2020-09-10] MEDS ORDERED: DEXTROSE 50% IN WATER (25GM) 50 ML SYRINGE IV PRN (11:30)
[2020-09-10] MEDS ORDERED: PROMETHAZINE 25 MG RECT SUPP PR PRN (12:00)
[2020-09-10] MEDS ORDERED: METOCLOPRAMIDE 10 MG TAB PO PRN (12:00)
[2020-09-10] MEDS ORDERED: MAGNESIUM HYDROXIDE (MOM) ORAL LIQD UDC PO PRN (12:00)
[2020-09-10] MEDS ORDERED: ONDANSETRON 4 MG/2 ML INJ IV PRN (12:00)
[2020-09-10] MEDS: LISINOPRIL 20 MG TAB PO SCH (12:06)
[2020-09-10] MEDS: D5W/0.45% NACL 1,000 ML IV SCH (12:09)
[2020-09-10] MEDS: INSULIN LISPRO 100 UNIT/ML VIAL 3 mL SUB-Q SCH ×2 (12:24→22:27)
--- NOTE | 2020-09-10 15:37 | Magnetic Resonance Report ---
NONENHANCED MR SCAN OF THE BRAIN: INDICATION / CLINICAL INFORMATION: Left-sided weakness; hypertension TECHNIQUE: Multiplanar, multisequence MR images of the brain obtained. COMPARISON: CT scan of the head obtained at 7:30 AM today and MR scan of the brain from 08/20/2019 FINDINGS: BRAIN / INTRACRANIAL CONTENTS: No acute ischemia, acute hemorrhage, mass effect, midline shift, or hy drocephalus. As seen in the last CT scan, encephalomalacia in the right superior temporal gyrus and hemorrhagic changes especially in the cortex is unchanged; focal susceptibility change right superior parietal lobule; remains unchanged Brainstem and cerebellar hemispheres are normal; periventricular and deep hemispheric white matter le sions due to chronic small vessel disease; chronic lacunae in the basal ganglia; focal area of chroni c ischemia in the lateral right precentral gyrus; remains unchanged CRANIOCERVICAL JUNCTION: No significant abnormality. VASCULAR FLOW-VOIDS: No significant abnormality. ORBITS: No significant abnormality of visualized orbits. SINUSES / MASTOIDS: No significant abnormality of visualized sinuses and mastoid air cells. ADDITIONAL FINDINGS: None. IMPRESSION: 1. No acute/subacute infarction; encephalomalacia in the right temporal lobe and right inferior front al lobe with hemorrhagic changes; No acute parenchymal lesion Signer Name: Ange Henning MD Signed: 09/10/2020 3:31 PM Workstation Name: [id number]
[2020-09-10 17:19] LABS: Bilirubin,Urine NEG (Negative); Blood,Urine SM (Negative); Color,Urine Yellow (Yellow); Mucus,Urine FEW /HPF; Protein,Urine <15 mg/dL mg/dL (Negative)
[2020-09-10] MEDS ORDERED: GABAPENTIN 300 MG CAP ONE (22:15)
[2020-09-10] MEDS ORDERED: levETIRAcetam 500 MG TAB PO ONE (22:15)
[2020-09-10] MEDS ORDERED: FAMOTIDINE 20 MG TAB ONE (22:16)
[2020-09-10] MEDS: GABAPENTIN 300 MG CAP PO SCH (22:19)
[2020-09-10] MEDS: levETIRAcetam 500 MG TAB PO SCH (22:19)
[2020-09-10] MEDS: FAMOTIDINE 20 MG TAB PO SCH (22:19)
[2020-09-10] MEDS ORDERED: ACETAMINOPHEN 325 MG TAB ONE (23:18)
[2020-09-10] MEDS: ACETAMINOPHEN 325 MG TAB PO PRN (23:20)
[2020-09-11] MEDS: INSULIN LISPRO 100 UNIT/ML VIAL 3 mL SUB-Q SCH ×5 (00:01→23:19)
[2020-09-11] MEDS ORDERED: D5W/0.45% NACL 1,000 ML IV ONE (02:26)
[2020-09-11] MEDS: D5W/0.45% NACL 1,000 ML IV SCH (03:30)
[2020-09-11 04:32] LABS: Basophils % (Auto) 0.4 % (0.0-1.8); Hemoglobin 15.9 gm/dl (11.8-15.2); Lymphocytes % (Auto) 18.9 % (13.4-35.0); Mean Corpuscular HGB Conc 35 % (32-34); Mean Corpuscular Volume 89 fl (84-94); Monocytes # (Auto) 0.4 K/mm3 (0.0-0.8); Monocytes % (Auto) 7.4 % (0.0-7.3); Platelet Count 239 K/mm3 (140-440); Red Blood Count 5.19 M/mm3 (3.65-5.03); Red Cell Distribution Width 13.6 % (13.2-15.2)
[2020-09-11 06:27] LABS: Blood Urea Nitrogen 8 mg/dL (9-20); Calcium 10.1 mg/dL (8.4-10.2); Chol/HDL Ratio 2.22 %; HDL Cholesterol 118 mg/dL (40-59); Hemolysis Index 12; LDL Cholesterol,Direct 155 mg/dL (50-130)
[2020-09-11 06:31] LABS: BUN/Creatinine Ratio 16
[2020-09-11] MEDS: niCARdipine 50 MG in SODIUM CHLORIDE 0.9% 250ML 230 ML IV SCH (07:22)
[2020-09-11] MEDS ORDERED: ACETAMINOPHEN 325 MG TAB ONE (07:34)
[2020-09-11] MEDS: ACETAMINOPHEN 325 MG TAB PO PRN (07:38)
[2020-09-11] MEDS ORDERED: levETIRAcetam 500 MG TAB PO ONE (09:49)
[2020-09-11] MEDS ORDERED: hydroCHLOROthiazide 25 MG TAB ONE (09:49)
[2020-09-11] MEDS ORDERED: LISINOPRIL 20 MG TAB ONE (09:49)
[2020-09-11] MEDS ORDERED: GABAPENTIN 300 MG CAP ONE (09:50)
[2020-09-11] MEDS: LISINOPRIL 20 MG TAB PO SCH (09:54)
[2020-09-11] MEDS: hydroCHLOROthiazide 25 MG TAB PO SCH (09:54)
[2020-09-11] MEDS: GABAPENTIN 300 MG CAP PO SCH ×2 (09:54→21:34)
[2020-09-11] MEDS: levETIRAcetam 500 MG TAB PO SCH ×2 (09:54→21:34)
[2020-09-11] MEDS: FAMOTIDINE 20 MG TAB PO SCH ×2 (09:54→21:34)
[2020-09-11] MEDS: HEPARIN 5,000 UNIT/1 ML VIAL SUB-Q SCH ×3 (14:03→21:34)
--- NOTE | 2020-09-11 15:56 | Progress Note ---
Assessment and Plan Assessment and plan: Sean Triana is a 55-year-old -[place] male with history of hypertension, type 2 diabetes, seizure disorder and remote history of stroke with residual left-sided weakness, apparently was brought in by EMS with code stroke and telemetry neurologist was consulted and was recommended TPA. A bolus dose of TPA was administered. Meanwhile ED physician saw the patient, was noted to be severely hypertensive, and TPA drip was canceled and patient was started on Cardene IV drip. Per discussion with ED physician, he does not think patient had a stroke. He suspects postictal state as the patient presented with postictal state twice in the past few months. At the time of my evaluation patient is on BiPAP, he is awake but still somewhat sleepy, oriented to his name and age and he offers no specific complaints. He denies any headache or any new onset weakness in the extremities. He denies any chest pain or shortness of breath. He states he quit smoking but still smokes off and on and consumes 3 to 4 cans of beer daily. Patient is being admitted for further evaluation of his altered mentation. Neurology and pulmonary consults have been requested 09/11: Patient is S/P TPA, clinically improving, counselling on ETOH USE Disorder. Will downgrade, continue CIWA PROTOCOL, Add hydrochlorothiazid due to HTN. ASA and statin STARTING TODAY. (1)CVA (cerebral vascular accident) Current Visit: Yes Status: Chronic Qualifiers: CVA mechanism: other Qualified Code(s): I63.89 - Other cerebral infarction Plan to address problem: Patient had CT head x2 while in ED No hemorrhage No acute lesions Will order MRI brain Neuro consulted We will request speech, PT and OT consults S/P TPA (2) Hypokalemia Current Visit: Yes Status: Acute Plan to address problem: Patient had potassium supplemented while in ED Monitor electrolytes (3) Hyponatremia Current Visit: Yes Status: Acute Plan to address problem: Mild Monitor electrolytes No further hyponatremia work-up (4) Hypertensive emergency Current Visit: Yes Status: Acute Plan to address problem: Patient's blood pressure systolic at presentation was in the 180s and soon after went up to 210/129 Patient was started on IV Cardene drip and at this time blood pressure is well controlled with BP systolic around 150-160 We will restart her home medication of lisinopril Will try to wean off her Cardene drip Patient will be admitted to the ICU (5) Respiratory failure Current Visit: Yes Status: Acute Qualifiers: Chronicity: acute Respiratory failure complication: hypercapnia Qualified Code(s): J96.02 - Acute respiratory failure with hypercapnia Plan to address problem: ABG on BiPAP results reviewed We will change to nasal cannula at 4 L and repeat ABG Pulmonary consult with Dr. Gotti (6) History of alcohol abuse Current Visit: No Status: Chronic Plan to address problem: Patient is not in any withdrawal or alcohol intoxication He states he drinks 3-4 beers a day We will monitor for now I do not think patient needs CIWA protocol at this time (7) Seizure disorder Current Visit: No Status: Chronic Plan to address problem: Continue Keppra (8) Acute encephalopathy Current Visit: Yes Status: Acute Plan to address problem: Most likely postictal state Patient's mental status is already improving and is alert to his name and age and responds fairly well Will monitor History Interval history: Patient seen and examined, no new complaints, reports that he has not been taken his lisinopril, also admits to his alcohol use, Last drink was 3 days ago. He denies any chest pain, shortness of breath, nausea, vomiting Hospitalist Physical - Physical exam Narrative exam: General appearance: Present: no acute distress, well-nourished - EENT Eyes: Present: PERRL, EOM intact ENT: hearing intact - Neck Neck: Present: supple, normal ROM. Absent: masses or JVD - Respiratory Respiratory effort: normal Respiratory: bilateral: CTA, diminished, negative: rales, rhonchi - Cardiovascular Rhythm: regular Heart Sounds: Present: S1 & S2 - Extremities Extremities: No edema - Abdominal General gastrointestinal: Present: soft, non-tender. Absent: hepatomegaly, splenomegaly Male genitourinary: Present: deferred - Rectal Rectal Exam: deferred - Integumentary Integumentary: Present: clear - Musculoskeletal Musculoskeletal: left sided weakness improved, trigger finger on left - Psychiatric Psychiatric: appropriate mood/affect, other (Sleepy) - Constitutional Vitals: Temp Pulse Resp BP Pulse Ox 98.4 F 87 12 154/91 95 09/10/20 23:00 09/11/20 10:30 09/11/20 11:45 09/11/20 11:45 09/11/20 11:01 General appearance: Present: no acute distress, well-nourished HEART Score - HEART Score Troponin: Troponin T < 0.010 ng/mL (0.00-0.029) 09/10/20 06:39 Results - Labs CBC & Chem 7: 09/11/20 03:59 09/11/20 03:59 Labs: Laboratory Last Values WBC 5.0 K/mm3 (4.5-11.0) 09/11/20 03:59 RBC 5.19 M/mm3 (3.65-5.03) H 09/11/20 03:59 Hgb 15.9 gm/dl (11.8-15.2) H 09/11/20 03:59 Hct 46.0 % (35.5-45.6) H 09/11/20 03:59 MCV 89 fl (84-94) 09/11/20 03:59 MCH 31 pg (28-32) 09/11/20 03:59 MCHC 35 % (32-34) H 09/11/20 03:59 RDW 13.6 % (13.2-15.2) 09/11/20 03:59 Plt Count 239 K/mm3 (140-440) 09/11/20 03:59 Lymph % (Auto) 18.9 % (13.4-35.0) 09/11/20 03:59 [place] % (Auto) 7.4 % (0.0-7.3) H 09/11/20 03:59 Eos % (Auto) 0.0 % (0.0-4.3) 09/11/20 03:59 Baso % (Auto) 0.4 % (0.0-1.8) 09/11/20 03:59 Lymph # (Auto) 1.0 K/mm3 (1.2-5.4) L 09/11/20 03:59 [place] # (Auto) 0.4 K/mm3 (0.0-0.8) 09/11/20 03:59 Eos # (Auto) 0.0 K/mm3 (0.0-0.4) 09/11/20 03:59 Baso # (Auto) 0.0 K/mm3 (0.0-0.1) 09/11/20 03:59 Seg Neutrophils % 73.3 % (40.0-70.0) H 09/11/20 03:59 Seg Neutrophils # 3.7 K/mm3 (1.8-7.7) 09/11/20 03:59 PT 13.3 Sec. (12.2-14.9) 09/10/20 06:39 INR 1.00 (0.87-1.13) 09/10/20 06:39 APTT 25.2 Sec. (24.2-36.6) 09/10/20 06:39 ABG pH 7.291 (7.320-7.450) L 09/10/20 11:57 POC ABG pCO2 57.7 mmHg (32.0-48.0) H 09/10/20 11:57 POC ABG pO2 78.6 mmHg (83-108) L 09/10/20 11:57 POC ABG HCO3 27.2 09/10/20 11:57 POC ABG Base Excess -0.7 09/10/20 11:57 ABG Hemoglobin 15.8 (12.0-17.5) 09/10/20 11:57 ABG Oxyhemoglobin 93.9 (94-98) L 09/10/20 11:57 ABG Methemoglobin 0.1 (0.0-1.5) 09/10/20 11:57 ABG Sodium 135.6 mmol/L (136.0-145.0) L 09/10/20 11:57 ABG Potassium 4.1 mmol/L (3.40-4.50) 09/10/20 11:57 ABG Chloride 97.0 mmol/L (98-107) L 09/10/20 11:57 ABG Glucose 175 mg/dL (65-95) H 09/10/20 11:57 Carboxyhemoglobin 0.8 (0.5-1.5) 09/10/20 11:57 FiO2 30 09/10/20 11:57 Sodium 133 mmol/L (137-145) L 09/11/20 03:59 Potassium 3.7 mmol/L (3.6-5.0) 09/11/20 03:59 Chloride 91.6 mmol/L (98-107) L 09/11/20 03:59 Carbon Dioxide 24 mmol/L (22-30) 09/11/20 03:59 Anion Gap 21 mmol/L 09/11/20 03:59 BUN 8 mg/dL (9-20) L 09/11/20 03:59 Creatinine 0.5 mg/dL (0.8-1.3) L 09/11/20 03:59 Estimated GFR > 60 ml/min 09/11/20 03:59 BUN/Creatinine Ratio 16 % 09/11/20 03:59 Glucose 132 mg/dL (75-100) H 09/11/20 03:59 POC Glucose 140 (70-105) H 09/11/20 12:05 Hemoglobin A1c 6.1 % (4-6) H 09/11/20 03:59 Calcium 10.1 mg/dL (8.4-10.2) 09/11/20 03:59 Troponin T < 0.010 ng/mL (0.00-0.029) 09/10/20 06:39 Triglycerides 50 mg/dL (2-149) 09/11/20 03:59 Cholesterol 262 mg/dL (50-199) H 09/11/20 03:59 LDL Cholesterol Direct 155 mg/dL (50-130) H 09/11/20 03:59 HDL Cholesterol 118 mg/dL (40-59) H 09/11/20 03:59 Cholesterol/HDL Ratio 2.22 % 09/11/20 03:59 Arterial Blood Glucose 175 mg/dL (65-95) H 09/10/20 11:57 Arterial Blood Ionized Calcium 4.8 mg/dL (4.6-5.3) 09/10/20 11:57 Urine Color Yellow (Yellow) 09/10/20 16:50 Urine Turbidity Clear (Clear) 09/10/20 16:50 Urine pH 6.0 (5.0-7.0) 09/10/20 16:50 Ur Specific [place] 1.013 (1.003-1.030) 09/10/20 16:50 Urine Protein <15 mg/dl mg/dL (Negative) 09/10/20 16:50 Urine Glucose (UA) 150 mg/dL (Negative) 09/10/20 16:50 Urine Ketones Neg mg/dL (Negative) 09/10/20 16:50 Urine Blood Sm (Negative) 09/10/20 16:50 Urine Nitrite Neg (Negative) 09/10/20 16:50 Urine Bilirubin Neg (Negative) 09/10/20 16:50 Urine Urobilinogen 2.0 mg/dL (<2.0) 09/10/20 16:50 Ur Leukocyte Esterase Neg (Negative) 09/10/20 16:50 Urine WBC (Auto) 1.0 /HPF (0.0-6.0) 09/10/20 16:50 Urine RBC (Auto) 2.0 /HPF (0.0-6.0) 09/10/20 16:50 Urine Mucus Few /HPF 09/10/20 16:50 White/IV: IV Catheter Type [Left Medial INT / Saline [place] Antecubital] Active Medications - Current Medications Current Medications: Generic Name Dose Route Start Last Admin Trade Name Freq PRN Reason Stop Dose Admin Acetaminophen 650 mg 09/10/20 11:30 09/11/20 07:38 Tylenol PO 650 mg Q4H PRN Administration Pain, Mild (1-3) Atorvastatin Calcium 40 mg 09/10/20 22:00 09/10/20 22:19 Lipitor PO 40 mg QHS JOSE CARLOS Administration Bisacodyl 10 mg 09/10/20 11:30 Dulcolax MA QDAY PRN Constipation Dextrose 50 ml 09/10/20 11:30 D50w (25gm) Syringe IV Q30MIN PRN Hypoglycemia Protocol Famotidine 20 mg 09/10/20 22:00 09/11/20 09:54 Pepcid PO Not Given BID JOSE CARLOS Gabapentin 300 mg 09/10/20 22:00 09/11/20 09:54 Gabapentin PO 300 mg BID JOSE CARLOS Administration Heparin Sodium (Porcine) 5,000 unit 09/11/20 14:00 Heparin SUB-Q Q8HR JOSE CARLOS Hydrochlorothiazide 25 mg 09/11/20 10:00 09/11/20 09:54 Hctz PO 25 mg QDAY JOSE CARLOS Administration Nicardipine HCl 50 mg/ Sodium 250 mls @ 25 mls/hr 09/10/20 08:00 09/11/20 07:22 Chloride IV 2.5 mg/hr TITR JOSE CARLOS 12.5 mls/hr Administration Protocol 5 MG/HR Insulin Human Lispro 0 unit 09/10/20 11:30 09/11/20 12:18 Humalog SUB-Q Not Given Q6H JOSE CARLOS Protocol Levetiracetam 500 mg 09/10/20 22:00 09/11/20 09:54 Keppra PO 500 mg BID JOSE CARLOS Administration Lisinopril 20 mg 09/10/20 12:00 09/11/20 09:54 Zestril PO 20 mg QDAY JOSE CARLOS Administration Magnesium Hydroxide 30 ml 09/10/20 12:00 Milk Of Magnesia PO Q4H PRN Constipation Metoclopramide HCl 10 mg 09/10/20 12:00 Reglan PO Q6H PRN Nausea And Vomiting Ondansetron HCl 4 mg 09/10/20 12:00 Zofran IV Q8H PRN Nausea And Vomiting Promethazine HCl 25 mg 09/10/20 12:00 Phenergan MA Q6H PRN Nausea And Vomiting Sodium Chloride 10 ml 09/10/20 22:00 09/11/20 09:57 Sodium Chloride Flush Syringe 10 Ml IV 10 ml BID JOSE CARLOS Administration Sodium Chloride 10 ml 09/10/20 10:47 Sodium Chloride Flush Syringe 10 Ml IV PRN PRN LINE FLUSH
[2020-09-11] MEDS: ASPIRIN 81 MG TAB CHEW PO SCH (16:39)
--- NOTE | 2020-09-11 21:06 | Cat Scan Report ---
CT BRAIN: 09/11/2020 INDICATION / CLINICAL INFORMATION: confusion. COMPARISON: CT brain 09/10/2020. MRI brain 09/10/2020. CT brain 07/16/2020. CT brain 10/11/2019. FINDINGS: BRAIN/INTRACRANIAL STRUCTURES: Unenhanced CT images of the brain demonstrate no evidence of acute abn ormality. Ventricles and sulci are prominent in size, consistent with diffuse cerebral atrophy. Focal encephalomalacia in the lateral aspect of the right temporal lobe is present, unchanged when co mpared to prior exams. There is no CT evidence of acute ischemic injury, hemorrhage, or mass. There are no abnormal extra-ax ial fluid collections. EXTRACRANIAL STRUCTURES: Unremarkable. IMPRESSION: No acute abnormality. Chronic changes, stable when compared to prior exams. All CT scans at this location are performed using dose reduction to ALARA by means of automated expos ure control. Signer Name: Naren Valladares MD Signed: 09/11/2020 9:01 PM Workstation Name: [id number]
[2020-09-12] MEDS: HEPARIN 5,000 UNIT/1 ML VIAL SUB-Q SCH (05:27)
--- NOTE | 2020-09-12 07:15 | Progress Note ---
Assessment and Plan Assessment and plan: Sean Triana is a 55-year-old -[place] male with history of hypertension, type 2 diabetes, seizure disorder and remote history of stroke with residual left-sided weakness, apparently was brought in by EMS with code stroke and telemetry neurologist was consulted and was recommended TPA. A bolus dose of TPA was administered. Meanwhile ED physician saw the patient, was noted to be severely hypertensive, and TPA drip was canceled and patient was started on Cardene IV drip. Per discussion with ED physician, he does not think patient had a stroke. He suspects postictal state as the patient presented with postictal state twice in the past few months. At the time of my evaluation patient is on BiPAP, he is awake but still somewhat sleepy, oriented to his name and age and he offers no specific complaints. He denies any headache or any new onset weakness in the extremities. He denies any chest pain or shortness of breath. He states he quit smoking but still smokes off and on and consumes 3 to 4 cans of beer daily. Patient is being admitted for further evaluation of his altered mentation. Neurology and pulmonary consults have been requested 09/11: Patient is S/P TPA, clinically improving, counselling on ETOH USE Disorder. Will downgrade, continue CIWA PROTOCOL, Add hydrochlorothiazid due to HTN. ASA and statin STARTING TODAY. 09/12: Discontinue lisnopril 20 and start Diovan 160 BID due to hypertensive urgency. Will also add PRN metoprolol. Monitor for additional 24 hrs and discharge in am if Mental status improved. Patient with Encephalopathy that was possible initiated due to Hypertension (1)CVA (cerebral vascular accident) Current Visit: Yes Status: Chronic Qualifiers: CVA mechanism: other Qualified Code(s): I63.89 - Other cerebral infarction Plan to address problem: Patient had CT head x2 while in ED No hemorrhage No acute lesions Will order MRI brain Neuro consulted We will request speech, PT and OT consults S/P TPA (2) Hypokalemia Current Visit: Yes Status: Acute Plan to address problem: Patient had potassium supplemented while in ED Monitor electrolytes (3) Hyponatremia Current Visit: Yes Status: Acute Plan to address problem: Mild Monitor electrolytes No further hyponatremia work-up (4) Hypertensive emergency Current Visit: Yes Status: Acute Plan to address problem: Patient's blood pressure systolic at presentation was in the 180s and soon after went up to 210/129 Patient was started on IV Cardene drip and at this time blood pressure is well controlled with BP systolic around 150-160 We will restart her home medication of lisinopril Will try to wean off her Cardene drip Patient will be admitted to the ICU (5) Respiratory failure Current Visit: Yes Status: Acute Qualifiers: Chronicity: acute Respiratory failure complication: hypercapnia Qualified Code(s): J96.02 - Acute respiratory failure with hypercapnia Plan to address problem: ABG on BiPAP results reviewed We will change to nasal cannula at 4 L and repeat ABG Pulmonary consult with Dr. Gotti (6) History of alcohol abuse Current Visit: No Status: Chronic Plan to address problem: Patient is not in any withdrawal or alcohol intoxication He states he drinks 3-4 beers a day We will monitor for now I do not think patient needs CIWA protocol at this time (7) Seizure disorder Current Visit: No Status: Chronic Plan to address problem: Continue [place] (8) Acute Toxic encephalopathy secondary to Hypertension Current Visit: Yes Status: Acute Plan to address problem: Most likely postictal state Patient's mental status is already improving and is alert to his name and age and responds fairly well Will monitor Hospitalist Physical - Constitutional Vitals: Temp Pulse Resp BP Pulse Ox 98.8 F 79 16 158/77 95 09/12/20 03:59 09/12/20 03:59 09/12/20 03:59 09/12/20 03:59 09/12/20 03:59 General appearance: Present: no acute distress, well-nourished HEART Score - HEART Score Troponin: Troponin T < 0.010 ng/mL (0.00-0.029) 09/10/20 06:39 Results - Labs CBC & Chem 7: 09/11/20 03:59 09/11/20 03:59 Labs: Laboratory Last Values WBC 5.0 K/mm3 (4.5-11.0) 09/11/20 03:59 RBC 5.19 M/mm3 (3.65-5.03) H 09/11/20 03:59 Hgb 15.9 gm/dl (11.8-15.2) H 09/11/20 03:59 Hct 46.0 % (35.5-45.6) H 09/11/20 03:59 MCV 89 fl (84-94) 09/11/20 03:59 MCH 31 pg (28-32) 09/11/20 03:59 MCHC 35 % (32-34) H 09/11/20 03:59 RDW 13.6 % (13.2-15.2) 09/11/20 03:59 Plt Count 239 K/mm3 (140-440) 09/11/20 03:59 Lymph % (Auto) 18.9 % (13.4-35.0) 09/11/20 03:59 [place] % (Auto) 7.4 % (0.0-7.3) H 09/11/20 03:59 Eos % (Auto) 0.0 % (0.0-4.3) 09/11/20 03:59 Baso % (Auto) 0.4 % (0.0-1.8) 09/11/20 03:59 Lymph # (Auto) 1.0 K/mm3 (1.2-5.4) L 09/11/20 03:59 [place] # (Auto) 0.4 K/mm3 (0.0-0.8) 09/11/20 03:59 Eos # (Auto) 0.0 K/mm3 (0.0-0.4) 09/11/20 03:59 Baso # (Auto) 0.0 K/mm3 (0.0-0.1) 09/11/20 03:59 Seg Neutrophils % 73.3 % (40.0-70.0) H 09/11/20 03:59 Seg Neutrophils # 3.7 K/mm3 (1.8-7.7) 09/11/20 03:59 PT 13.3 Sec. (12.2-14.9) 09/10/20 06:39 INR 1.00 (0.87-1.13) 09/10/20 06:39 APTT 25.2 Sec. (24.2-36.6) 09/10/20 06:39 ABG pH 7.291 (7.320-7.450) L 09/10/20 11:57 POC ABG pCO2 57.7 mmHg (32.0-48.0) H 09/10/20 11:57 POC ABG pO2 78.6 mmHg (83-108) L 09/10/20 11:57 POC ABG HCO3 27.2 09/10/20 11:57 POC ABG Base Excess -0.7 09/10/20 11:57 ABG Hemoglobin 15.8 (12.0-17.5) 09/10/20 11:57 ABG Oxyhemoglobin 93.9 (94-98) L 09/10/20 11:57 ABG Methemoglobin 0.1 (0.0-1.5) 09/10/20 11:57 ABG Sodium 135.6 mmol/L (136.0-145.0) L 09/10/20 11:57 ABG Potassium 4.1 mmol/L (3.40-4.50) 09/10/20 11:57 ABG Chloride 97.0 mmol/L (98-107) L 09/10/20 11:57 ABG Glucose 175 mg/dL (65-95) H 09/10/20 11:57 Carboxyhemoglobin 0.8 (0.5-1.5) 09/10/20 11:57 FiO2 30 09/10/20 11:57 Sodium 133 mmol/L (137-145) L 09/11/20 03:59 Potassium 3.7 mmol/L (3.6-5.0) 09/11/20 03:59 Chloride 91.6 mmol/L (98-107) L 09/11/20 03:59 Carbon Dioxide 24 mmol/L (22-30) 09/11/20 03:59 Anion Gap 21 mmol/L 09/11/20 03:59 BUN 8 mg/dL (9-20) L 09/11/20 03:59 Creatinine 0.5 mg/dL (0.8-1.3) L 09/11/20 03:59 Estimated GFR > 60 ml/min 09/11/20 03:59 BUN/Creatinine Ratio 16 % 09/11/20 03:59 Glucose 132 mg/dL (75-100) H 09/11/20 03:59 POC Glucose 129 (70-105) H 09/11/20 22:37 Hemoglobin A1c 6.1 % (4-6) H 09/11/20 03:59 Calcium 10.1 mg/dL (8.4-10.2) 09/11/20 03:59 Troponin T < 0.010 ng/mL (0.00-0.029) 09/10/20 06:39 Triglycerides 50 mg/dL (2-149) 09/11/20 03:59 Cholesterol 262 mg/dL (50-199) H 09/11/20 03:59 LDL Cholesterol Direct 155 mg/dL (50-130) H 09/11/20 03:59 HDL Cholesterol 118 mg/dL (40-59) H 09/11/20 03:59 Cholesterol/HDL Ratio 2.22 % 09/11/20 03:59 Arterial Blood Glucose 175 mg/dL (65-95) H 09/10/20 11:57 Arterial Blood Ionized Calcium 4.8 mg/dL (4.6-5.3) 09/10/20 11:57 Urine Color Yellow (Yellow) 09/10/20 16:50 Urine Turbidity Clear (Clear) 09/10/20 16:50 Urine pH 6.0 (5.0-7.0) 09/10/20 16:50 Ur Specific [place] 1.013 (1.003-1.030) 09/10/20 16:50 Urine Protein <15 mg/dl mg/dL (Negative) 09/10/20 16:50 Urine Glucose (UA) 150 mg/dL (Negative) 09/10/20 16:50 Urine Ketones Neg mg/dL (Negative) 09/10/20 16:50 Urine Blood Sm (Negative) 09/10/20 16:50 Urine Nitrite Neg (Negative) 09/10/20 16:50 Urine Bilirubin Neg (Negative) 09/10/20 16:50 Urine Urobilinogen 2.0 mg/dL (<2.0) 09/10/20 16:50 Ur Leukocyte Esterase Neg (Negative) 09/10/20 16:50 Urine WBC (Auto) 1.0 /HPF (0.0-6.0) 09/10/20 16:50 Urine RBC (Auto) 2.0 /HPF (0.0-6.0) 09/10/20 16:50 Urine Mucus Few /HPF 09/10/20 16:50 White/IV: Voiding Method Toilet IV Catheter Type [Left Medial INT / Saline [place] Antecubital] Active Medications - Current Medications Current Medications: Generic Name Dose Route Start Last Admin Trade Name Freq PRN Reason Stop Dose Admin Acetaminophen 650 mg 09/10/20 11:30 09/11/20 07:38 Tylenol PO 650 mg Q4H PRN Administration Pain, Mild (1-3) Aspirin 81 mg 09/11/20 17:00 09/11/20 16:39 Baby Aspirin PO 81 mg QDAY JOSE CARLOS Administration Atorvastatin Calcium 40 mg 09/10/20 22:00 09/11/20 21:34 Lipitor PO 40 mg QHS JOSE CARLOS Administration Bisacodyl 10 mg 09/10/20 11:30 Dulcolax IN QDAY PRN Constipation Dextrose 50 ml 09/10/20 11:30 D50w (25gm) Syringe IV Q30MIN PRN Hypoglycemia Protocol Famotidine 20 mg 09/10/20 22:00 09/11/20 21:34 Pepcid PO 20 mg BID JOSE CARLOS Administration Gabapentin 300 mg 09/10/20 22:00 09/11/20 21:34 Gabapentin PO 300 mg BID JOSE CARLOS Administration Heparin Sodium (Porcine) 5,000 unit 09/11/20 14:00 09/12/20 05:27 Heparin SUB-Q 5,000 unit Q8HR JOSE CARLOS Administration Hydrochlorothiazide 25 mg 09/11/20 10:00 09/11/20 09:54 Hctz PO 25 mg QDAY JOSE CARLOS Administration Nicardipine HCl 50 mg/ Sodium 250 mls @ 25 mls/hr 09/10/20 08:00 09/11/20 07:22 Chloride IV 2.5 mg/hr TITR JOSE CARLOS 12.5 mls/hr Administration Protocol 5 MG/HR Insulin Human Lispro 0 unit 09/11/20 22:24 09/11/20 23:19 Humalog SUB-Q Not Given ACHS [facility] Protocol Levetiracetam 500 mg 09/10/20 22:00 09/11/20 21:34 Keppra PO 500 mg BID JOSE CARLOS Administration Magnesium Hydroxide 30 ml 09/10/20 12:00 Milk Of Magnesia PO Q4H PRN Constipation Metoclopramide HCl 10 mg 09/10/20 12:00 Reglan PO Q6H PRN Nausea And Vomiting Ondansetron HCl 4 mg 09/10/20 12:00 Zofran IV Q8H PRN Nausea And Vomiting Promethazine HCl 25 mg 09/10/20 12:00 Phenergan IN Q6H PRN Nausea And Vomiting Sodium Chloride 10 ml 09/10/20 22:00 09/11/20 21:35 Sodium Chloride Flush Syringe 10 Ml IV 10 ml BID JOSE CARLOS Administration Sodium Chloride 10 ml 09/10/20 10:47 Sodium Chloride Flush Syringe 10 Ml IV PRN PRN LINE FLUSH Valsartan 160 mg 09/12/20 10:00 Diovan PO BID JOSE CARLOS
--- NOTE | 2020-09-12 07:42 | Discharge Summary ---
Providers - Providers Date of Admission: 09/10/20 10:47 Attending physician: DEEDEE MCCORMICK MD 09/10/20 10:38 Consult to Physician [CONS] Routine Comment: Consulting Provider: JONN GOTTI Physician Instructions: Reason For Exam: acute respiratory failure 09/10/20 10:43 Consult to Physician [CONS] Routine Comment: Consulting Provider: KYM PALENCIA Physician Instructions: Reason For Exam: stroke vs post ictal state 09/10/20 10:48 Occupational Therapy Evaluate and Treat [CONS] Routine Comment: Reason For Exam: Neuro deficits Physical Therapy Evaluation and Treat [CONS] Routine Comment: Reason For Exam: Neuro deficits 09/10/20 10:54 Consult to Case Management [CONS] Routine Services Needed at Discharge: Senior Administrator Support Notified:: case management 09/10/20 10:55 Speech Therapy Evaluation and Treat [CONS] Routine Reason For Exam: swallow eval 09/10/20 11:15 Consult to Case Management [CONS] Routine Services Needed at Discharge: Senior Administrator Support Other Notified:: case management Primary care physician: ENTERTAINER OR VARIETY ARTIST Hospitalization Condition: Stable Hospital course: Sean Triana is a 55-year-old -[place] male with history of hypertension, type 2 diabetes, seizure disorder and remote history of stroke with residual left-sided weakness, apparently was brought in by EMS with code stroke and telemetry neurologist was consulted and was recommended TPA. A bolus dose of TPA was administered. Meanwhile ED physician saw the patient, was noted to be severely hypertensive, and TPA drip was canceled and patient was started on Cardene IV drip. Per discussion with ED physician, he does not think patient had a stroke. He suspects postictal state as the patient presented with post ictal state twice in the past few months. At the time of my evaluation patient is on BiPAP, he is awake but still somewhat sleepy, oriented to his name and age and he offers no specific complaints. He denies any headache or any new onset weakness in the extremities. He denies any chest pain or shortness of breath. He states he quit smoking but still smokes off and on and consumes 3 to 4 cans o f beer daily. Patient is being admitted for further evaluation of his altered mentation. Neurology and pulmonary consults have been requested 09/11: Patient is S/P TPA, clinically improving, counselling on ETOH USE Disorder. Will downgrade, continue CIWA PROTOCOL, Add hydrochlorothiazid due to HTN. ASA and statin STARTING TODAY. 09/12: Discontinue lisnopril 20 and start Diovan 160 BID due to hypertensive urgency. much improved mentation, was able to discribe what happened and treatment so far. 15 mins counselling on ETOH use disorder and need to quit. He verbalized understanding. Also advised about keeping a BP diary, he will follow with PCP in 1 week. (1)CVA (cerebral vascular accident) Current Visit: Yes Status: Chronic Qualifiers: CVA mechanism: other Qualified Code(s): I63.89 - Other cerebral infarction Plan to address problem: Patient had CT head x2 while in ED No hemorrhage No acute lesions Will order MRI brain Neuro consulted We will request speech, PT and OT consults S/P TPA (2) Hypokalemia Current Visit: Yes Status: Acute Plan to address problem: Patient had potassium supplemented while in ED Monitor electrolytes (3) Hyponatremia Current Visit: Yes Status: Acute Plan to address problem: Mild Monitor electrolytes No further hyponatremia work-up (4) Hypertensive emergency Current Visit: Yes Status: Acute Plan to address problem: Patient's blood pressure systolic at presentation was in the 180s and soon after went up to 210/129 Patient was started on IV Cardene drip and at this time blood pressure is well controlled with BP systolic around 150-160 We will restart her home medication of lisinopril Will try to wean off her Cardene drip Patient will be admitted to the ICU (5) Respiratory failure Current Visit: Yes Status: Acute Qualifiers: Chronicity: acute Respiratory failure complication: hypercapnia Qualified Code(s): J96.02 - Acute respiratory failure with hypercapnia Plan to address problem: ABG on BiPAP results reviewed We will change to nasal cannula at 4 L and repeat ABG Pulmonary consult with Dr. Gotti (6) History of alcohol abuse Current Visit: No Status: Chronic Plan to address problem: Patient is not in any withdrawal or alcohol intoxication He states he drinks 3-4 beers a day We will monitor for now I do not think patient needs CIWA protocol at this time (7) Seizure disorder Current Visit: No Status: Chronic Plan to address problem: Continue Keppra (8) Acute Toxic encephalopathy secondary to Hypertension Current Visit: Yes Status: Acute Plan to address problem: Most likely postictal state Patient's mental status is already improving and is alert to his name and age and responds fairly well Will monitor Disposition: DC-01 TO HOME OR SELFCARE Exam - Constitutional Vitals: Temp Pulse Resp BP Pulse Ox 98.8 F 79 16 158/77 95 09/12/20 03:59 09/12/20 03:59 09/12/20 03:59 09/12/20 03:59 09/12/20 03:59 Plan Activity: advance as tolerated, fall precautions Diet: low fat Special Instructions: record daily BP diary, record blood sugar diary, smoking cessation, other (MUST QUIT ETOH USE) Follow up with: PRIMARY CARE, [Primary Care Provider] - 3-[address] [facility] [Outside] - 7 Days Prescriptions: AtorvaSTATin [Lipitor] 40 mg PO QHS #30 tablet Valsartan [Diovan] 160 mg PO BID #60 tablet Gabapentin 300 mg PO BID #30 cap hydroCHLOROthiazide [HCTZ] 25 mg PO QDAY #30 tablet
[2020-09-12 07:57] VITALS: BP 151/87
[2020-09-12] MEDS: INSULIN LISPRO 100 UNIT/ML VIAL 3 mL SUB-Q SCH (08:00)
[2020-09-12] MEDS ORDERED: VALSARTAN 160MG TAB PO SCH (10:00)
[2020-09-12] MEDS: GABAPENTIN 300 MG CAP PO SCH (10:44)
[2020-09-12] MEDS: hydroCHLOROthiazide 25 MG TAB PO SCH (10:44)
[2020-09-12] MEDS: FAMOTIDINE 20 MG TAB PO SCH (10:44)
[2020-09-12] MEDS: levETIRAcetam 500 MG TAB PO SCH (10:44)
[2020-09-12] MEDS: ASPIRIN 81 MG TAB CHEW PO SCH (10:45)
== END 2020-09-12 11:40 | disposition home or self-care (01) | DRG 61 ==
LOC: ED 06:11 → CC1 10:47 → 4A 09-11 08:21
PROVIDERS: ADMIT Internal Medicine; ATTEND Internal Medicine
PROC: 3E03317 Introduction of Other Thrombolytic into Peripheral Vein, Percutaneous Approach (ICD-10-PCS; principal; 2020-09-10)
PROC: 4A033R1 Measurement of Arterial Saturation, Peripheral, Percutaneous Approach (ICD-10-PCS; 2020-09-10)
PROC: 5A09357 Assistance with Respiratory Ventilation, Less than 24 Consecutive Hours, Continuous Positive Airway Pressure (ICD-10-PCS; 2020-09-10)
PROC: 5A09357 Assistance with Respiratory Ventilation, Less than 24 Consecutive Hours, Continuous Positive Airway Pressure (ICD-10-PCS; 2020-09-11)
DX: I63.9 Cerebral infarction, unspecified (principal); J96.02 Acute respiratory failure with hypercapnia; G92 Toxic encephalopathy; E87.1 Hypo-osmolality and hyponatremia; I16.1 Hypertensive emergency; G81.94 Hemiplegia, unspecified affecting left nondominant side; E87.6 Hypokalemia; I10 Essential (primary) hypertension; E11.9 Type 2 diabetes mellitus without complications; G40.909 Epilepsy, unspecified, not intractable, without status epilepticus; F10.10 Alcohol abuse, uncomplicated; R29.704 NIHSS score 4; Z71.41 Alcohol abuse counseling and surveillance of alcoholic; Z79.899 Other long term (current) drug therapy; Z83.3 Family history of diabetes mellitus; Z82.49 Family history of ischemic heart disease and other diseases of the circulatory system; Z79.82 Long term (current) use of aspirin
CPT/HCPCS: 36415; 36600; 70450; 70551; 80048; 80061; 81001; 82805; 82962; 83036; 84484; 85025; 85610; 85730; 93005; 94760; G0378; A9270-GY; J1644; J1953; J2060; J2997; J7050

== ENCOUNTER 2020-11-07 00:27 | Emergency (ER) | payer MEDICAID, OTHER ==
[2020-11-07] MEDS ORDERED: levETIRAcetam 1000 MG/NS 0.75% 1,000 MG/100 ML BAG IV ONE (01:43)
--- NOTE | 2020-11-07 01:52 | Emergency Department Report ---
HPI - General Time Seen by Provider: 11/07/20 01:35 - [facility] HPI: Room 25 The patient is a 55-year-old male present with a chief complaint of seizure. Patient has a history of seizures and states he has been compliant with his Keppra. Patient states his last seizure prior to today was several weeks ago. Patient currently denies complaints ED Past Medical Hx - Past Medical History Hx Hypertension: Yes Hx Diabetes: Yes Hx Seizures: Yes Additional medical history: left ankle fracture - Surgical History Past Surgical History?: No Additional Surgical History: unknown - Family History Family history: no significant - Social History Smoking Status: Former Smoker - Medications Home Medications: Home Medications Medication Instructions Recorded Confirmed Last Taken Type Aspirin [Aspirin BABY CHEW TAB] 81 mg PO QDAY #30 tab.chew 07/16/20 09/11/20 Unknown Rx Magnesium Oxide 400 mg PO QDAY #30 tablet 07/16/20 09/11/20 Unknown Rx Multivitamin with Folic Acid [[facility] 400 mcg PO QDAY #30 tablet 07/16/20 09/11/20 Unknown Rx One Daily Essential Tablet] Famotidine [Pepcid] 20 mg PO BID #20 tablet 07/22/20 09/11/20 Unknown Rx AtorvaSTATin [Lipitor] 40 mg PO QHS #30 tablet 09/12/20 Unknown Rx Gabapentin 300 mg PO BID #30 cap 09/12/20 Unknown Rx Valsartan [Diovan] 160 mg PO BID #60 tablet 09/12/20 Unknown Rx hydroCHLOROthiazide [HCTZ] 25 mg PO QDAY #30 tablet 09/12/20 Unknown Rx levETIRAcetam [Keppra TAB] 500 mg PO BID 60 Days #120 tablet 11/07/20 Unknown Rx ED Review of Systems ROS: Stated complaint: SEIZURE Other details as noted in HPI Constitutional: no symptoms reported Eyes: denies: eye pain ENT: denies: throat pain Respiratory: no symptoms reported Cardiovascular: denies: chest pain Endocrine: no symptoms reported Gastrointestinal: denies: abdominal pain Genitourinary: denies: dysuria Musculoskeletal: denies: back pain Neurological: other (Seizure). denies: headache Physical Exam - Physical Exam Physical Exam: GENERAL: The patient is well-developed well-nourished male lying on stretcher not appearing to be in acute distress. [] HEENT: Normocephalic. Atraumatic. Extraocular motions are intact. Patient has moist mucous membranes. NECK: Supple. Trachea midline CHEST/LUNGS: Clear to auscultation. There is no respiratory distress noted. HEART/CARDIOVASCULAR: Regular. There is no tachycardia. There is no gallop rub or murmur. ABDOMEN: Abdomen is soft, nontender. Patient has normal bowel sounds. There is no abdominal distention. SKIN: There is no rash. There is no edema. There is no diaphoresis. NEURO: The patient is awake, alert, and oriented. The patient is cooperative. The patient has no focal neurologic deficits. The patient has normal speech MUSCULOSKELETAL: There is no evidence of acute injury. ED Medical Decision Making - Lab Data Result diagrams: 11/07/20 01:56 11/07/20 01:56 Laboratory Tests 11/07/20 11/07/20 01:56 01:56 WBC 6.2 RBC 4.78 Hgb 14.3 Hct 41.5 MCV 87 MCH 30 MCHC 34 RDW 13.9 Plt Count 129 L Lymph % (Auto) 7.9 L [place] % (Auto) 6.0 Eos % (Auto) 0.0 Baso % (Auto) 0.3 Lymph # (Auto) 0.5 L [place] # (Auto) 0.4 Eos # (Auto) 0.0 Baso # (Auto) 0.0 Seg Neutrophils % 85.8 H Seg Neutrophils # 5.3 Sodium 137 Potassium 3.8 Chloride 95.9 L Carbon Dioxide 23 Anion Gap 22 BUN 11 Creatinine 0.6 L Estimated GFR > 60 BUN/Creatinine Ratio 18 Glucose 115 H Calcium 9.9 Magnesium 2.20 - Differential Diagnosis Seizure Critical care attestation.: If time is entered above; I have spent that time in minutes in the direct care o f this critically ill patient, excluding procedure time. ED Disposition Clinical Impression: Seizure Disposition: DC-01 TO HOME OR SELFCARE Is pt being admited?: No Does the pt Need Aspirin: No Condition: Stable Instructions: Epilepsy, [id number], Managing Non-Epileptic Seizures, Adult Additional Instructions: Return to the emergency department should you develop worsening symptoms, inability to tolerate food or liquids, high fever or any other concerns Prescriptions: levETIRAcetam [Keppra TAB] 500 mg PO BID 60 Days #120 tablet Referrals: JOSIAH CHENEY MD [Primary Care Provider] - 3-5 Days CASSIDY PORTILLO MD [Staff Physician] - 3-5 Days (Dr. Portillo is a neurologist. Please follow-up with him for further evaluation) Time of Disposition: 05:05
[2020-11-07 02:35] LABS: Basophils % (Auto) 0.3 % (0.0-1.8); Hematocrit 41.5 % (35.5-45.6); Hemoglobin 14.3 gm/dl (11.8-15.2); Lymphocytes # (Auto) 0.5 K/mm3 (1.2-5.4); Lymphocytes % (Auto) 7.9 % (13.4-35.0); Mean Corpuscular HGB Conc 34 % (32-34); Mean Corpuscular Volume 87 fl (84-94); Monocytes # (Auto) 0.4 K/mm3 (0.0-0.8); Platelet Count 129 K/mm3 (140-440); Red Blood Count 4.78 M/mm3 (3.65-5.03); Red Cell Distribution Width 13.9 % (13.2-15.2)
[2020-11-07 02:52] LABS: Blood Urea Nitrogen 11 mg/dL (9-20); Calcium 9.9 mg/dL (8.4-10.2); Hemolysis Index 5
[2020-11-07 03:01] LABS: BUN/Creatinine Ratio 18
[2020-11-07 05:41] VITALS: BP 159/96
== END 2020-11-07 05:43 | disposition home or self-care (01) ==
LOC: ED 00:27
DX: G40.909 Epilepsy, unspecified, not intractable, without status epilepticus (principal); Z79.82 Long term (current) use of aspirin; Z79.899 Other long term (current) drug therapy; Z87.891 Personal history of nicotine dependence
CPT/HCPCS: 36415; 80048; 83735; 85025; 96374; 99284; J1953

== ENCOUNTER 2021-01-07 14:23 | Emergency (ER) | payer MEDICAID ==
[2021-01-07 14:43] VITALS: BP 190/114
--- NOTE | 2021-01-07 15:08 | Emergency Department Report ---
ED Recheck HPI - General Chief Complaint: Extremity Problem,Nontraumatic Stated Complaint: LT HAND PAIN Time Seen by Provider: 01/07/21 14:47 Source: patient Mode of arrival: Ambulatory Limitations: No Limitations - History of Present Illness Initial Comments: pt is a 55 yo male who presents to the ED with c/o a medication refill. he states he has been out of his medication for one week. he states he only has three tablets left of his seizure medication. he takes valsartan 160 mg BID, atorvastatin 40 mg QHS, gabapentin 300 mg BID, and keppra 500 mg BID. he has the bottles with him. he states he has not followed up with a primary care doctor. he states he has chronic left hand pain and tingling sensation which he has been seen in the ED in the past for. he states his symptoms improve with his medication. he denies any other symptoms at all currently, no CP, SOB, headache, vision changes, speech disturbance, gait disturbance. no allergies to meds. - Related Data Previous Rx's Medication Instructions Recorded Last Taken Type Aspirin [Aspirin BABY CHEW TAB] 81 mg PO QDAY #30 tab.chew 07/16/20 Unknown Rx Magnesium Oxide 400 mg PO QDAY #30 tablet 07/16/20 Unknown Rx Multivitamin with Folic Acid [[facility] 400 mcg PO QDAY #30 tablet 07/16/20 Unknown Rx One Daily Essential Tablet] Famotidine [Pepcid] 20 mg PO BID #20 tablet 07/22/20 Unknown Rx hydroCHLOROthiazide [HCTZ] 25 mg PO QDAY #30 tablet 09/12/20 Unknown Rx AtorvaSTATin [Lipitor] 40 mg PO QHS #30 tablet 01/07/21 Unknown Rx Gabapentin 300 mg PO BID #30 cap 01/07/21 Unknown Rx Valsartan [Diovan] 160 mg PO BID #60 tablet 01/07/21 Unknown Rx levETIRAcetam [Keppra TAB] 500 mg PO BID 60 Days #120 tablet 01/07/21 Unknown Rx Allergies Allergy/AdvReac Type Severity Reaction Status Date / Time No Known Allergies Allergy Verified 08/19/19 17:51 ED Review of Systems ROS: Stated complaint: LT HAND PAIN Other details as noted in HPI Comment: All other systems reviewed and negative ED Past Medical Hx - Past Medical History Previous Medical History?: Yes Hx Hypertension: Yes Hx Congestive Heart Failure: No Hx Diabetes: Yes Hx Seizures: Yes Hx Asthma: No Hx COPD: No Additional medical history: left ankle fracture - Surgical History Past Surgical History?: Yes Additional Surgical History: unknown - Social History Smoking Status: Never Smoker Substance Use Type: Alcohol - Medications Home Medications: Home Medications Medication Instructions Recorded Confirmed Last Taken Type Aspirin [Aspirin BABY CHEW TAB] 81 mg PO QDAY #30 tab.chew 07/16/20 09/11/20 Unknown Rx Magnesium Oxide 400 mg PO QDAY #30 tablet 07/16/20 09/11/20 Unknown Rx Multivitamin with Folic Acid [[facility] 400 mcg PO QDAY #30 tablet 07/16/20 09/11/20 Unknown Rx One Daily Essential Tablet] Famotidine [Pepcid] 20 mg PO BID #20 tablet 07/22/20 09/11/20 Unknown Rx hydroCHLOROthiazide [HCTZ] 25 mg PO QDAY #30 tablet 09/12/20 Unknown Rx AtorvaSTATin [Lipitor] 40 mg PO QHS #30 tablet 01/07/21 Unknown Rx Gabapentin 300 mg PO BID #30 cap 01/07/21 Unknown Rx Valsartan [Diovan] 160 mg PO BID #60 tablet 01/07/21 Unknown Rx levETIRAcetam [Keppra TAB] 500 mg PO BID 60 Days #120 tablet 01/07/21 Unknown Rx ED Physical Exam - General Limitations: No Limitations General appearance: alert, in no apparent distress - Head Head exam: Present: atraumatic, normocephalic - Eye Eye exam: Present: normal appearance - ENT ENT exam: Present: mucous membranes moist - Respiratory Respiratory exam: Present: normal lung sounds bilaterally. Absent: respiratory distress, wheezes, rales, rhonchi, stridor, chest wall tenderness, accessory muscle use, decreased breath sounds, prolonged expiratory - Cardiovascular Cardiovascular Exam: Present: regular rate, normal rhythm, normal heart sounds. Absent: systolic murmur, diastolic murmur, rubs, gallop - Neurological Exam Neurological exam: Present: alert, oriented X3 - Psychiatric Psychiatric exam: Present: normal affect, normal mood - Skin Skin exam: Present: warm, dry, intact ED Course Vital Signs 01/07/21 14:42 Temperature 98.7 F Pulse Rate 95 H Respiratory 20 Rate Blood Pressure 190/114 O2 Sat by Pulse 98 Oximetry ED Recheck MDM - Medical Decision Making pt is a 55 yo male who presents to the ED with c/o a medication refill. he st ates he has been out of his medication for one week. he states he only has three tablets left of his seizure medication. he takes valsartan 160 mg BID, atorvastatin 40 mg QHS, gabapentin 300 mg BID, and keppra 500 mg BID. he has the bottles with him. he states he has not followed up with a primary care doctor. he states he has chronic left hand pain and tingling sensation which he has been seen in the ED in the past for. he states his symptoms improve with his medication. he denies any other symptoms at all currently, no CP, SOB, headache, vision changes, speech disturbance, gait disturbance. no allergies to meds. Vitals with elevated blood pressure secondary to patient not taking his medication. He has no symptoms related to his blood pressure. The up-to-date medical literature does not recommend emergently lowering asymptomatic blood pressure. Patient given refills of his home medications. Patient will be referred to primary care doctor and neurologist. Patient has multiple chronic conditions that need to be managed regularly by primary care physician, discussed the importance of follow-up, discuss strict return precautions, patient verbalized understanding. advised pt please take medication as prescribed. increase your water intake. follow up with a primary care doctor. follow up with a neurology. return to the emergency room for any new or worsening symptoms. Critical care attestation.: If time is entered above; I have spent that time in minutes in the direct care of this critically ill patient, excluding procedure time. ED Disposition Clinical Impression: Medication refill, Elevated blood pressure reading, Non compliance w medication regimen Disposition: DC- TO HOME OR SELFCARE Is pt being admited?: No Does the pt Need Aspirin: No Condition: Stable Instructions: Hypertension, Adult, [id number], Managing Your Hypertension Additional Instructions: please take medication as prescribed. increase your water intake. follow up with a primary care doctor. follow up with a neurology. return to the emergency room for any new or worsening symptoms. Prescriptions: AtorvaSTATin [Lipitor] 40 mg PO QHS #30 tablet Valsartan [Diovan] 160 mg PO BID #60 tablet Gabapentin 300 mg PO BID #30 cap levETIRAcetam [Keppra TAB] 500 mg PO BID 60 Days #120 tablet Referrals: ASHA MYERS MD [Staff Physician] - 3-5 Days [facility] [Provider Group] - 3-5 Days MOSES VAUGHN MD [Referring] - 3-5 Days Time of Disposition: 15:12 Print Language: [place]
== END 2021-01-07 16:48 | disposition home or self-care (01) ==
LOC: ED 14:23
DX: I10 Essential (primary) hypertension (principal); Z76.0 Encounter for issue of repeat prescription; Z91.14 Patient's other noncompliance with medication regimen; E11.9 Type 2 diabetes mellitus without complications; R56.9 Unspecified convulsions; Z79.899 Other long term (current) drug therapy
CPT/HCPCS: 99282